=== PATIENT | female | born 1970 | race Caucasian/White ===

== ENCOUNTER → 2016-07-31 | Outpatient (CLI) | payer BC ==
[~2016-07-31] MED LIST: ALLEGRA PO; CALC600T7 PO; CINNAMON PO; FISH100049 PO; HAIRTAB5 PO; IBUP600T26 PO; IRONTAB3 PO; LISIPOW PO; METFORMIN PO; MOTRIN PO; MULTIVITAMIN PO; NIACPOW39 PO; NORCOTAB PO; RANITIDINE PO; SINGULAIR PO; ZIAC PO
[2016-07-31 09:23] LABS: ALBUMIN/GLOBULIN RATIO 1.25 (1.00-1.93); ALKALINE PHOSPHATASE 52 U/L (45-117); ALT/SGPT 49 U/L (12-78); ANION GAP 8 MEQ/L (8-16); AST/SGOT 26 U/L (15-37); BILIRUBIN,TOTAL 0.5 MG/DL (0.2-1.0); BLOOD UREA NITROGEN 12 MG/DL (7-18); CALCIUM LEVEL 9.1 MG/DL (8.5-10.1); CARBON DIOXIDE LEVEL 29 MEQ/L (21-32); CHLORIDE LEVEL 101 MEQ/L (98-107); CREATININE FOR GFR 0.61 MG/DL (0.55-1.02); GLOMERULAR FILTRATION RATE > 60.0 (>58); GLUCOSE, FASTING 180 MG/DL (70-105); POTASSIUM SERUM 4.1 MEQ/L (3.5-5.1); SODIUM LEVEL 138 MEQ/L (136-145); TOTAL PROTEIN 7.2 GM/DL (6.4-8.2)
== END ==
LOC: M LAB 08:11
PROVIDERS: ATTEND Nurse Practitioner Family
DX: I10 Essential (primary) hypertension (principal); E11.9 Type 2 diabetes mellitus without complications

== ENCOUNTER → 2017-01-19 | Outpatient (CLI) | payer BC ==
[2017-01-19 08:45] LABS: ALBUMIN 4.1 GM/DL (3.2-5.2); ALBUMIN/GLOBULIN RATIO 1.32 (1.00-1.93); ALKALINE PHOSPHATASE 53 U/L (45-117); ALT/SGPT 53 U/L (12-78); ANION GAP 9 MEQ/L (8-16); AST/SGOT 26 U/L (7-37); BILIRUBIN,TOTAL 0.6 MG/DL (0.2-1.0); BLOOD UREA NITROGEN 8 MG/DL (7-18); CALCIUM LEVEL 9.4 MG/DL (8.5-10.1); CARBON DIOXIDE LEVEL 27 MEQ/L (21-32); CHLORIDE LEVEL 102 MEQ/L (98-107); CHOLESTEROL LEVEL 185 MG/DL (<200); CREATININE FOR GFR 0.54 MG/DL (0.55-1.02); GLOMERULAR FILTRATION RATE > 60.0 (>58); GLUCOSE, FASTING 179 MG/DL (70-105); MAGNESIUM LEVEL 1.7 MG/DL (1.8-2.4); POTASSIUM SERUM 4.1 MEQ/L (3.5-5.1); SODIUM LEVEL 138 MEQ/L (136-145); TOTAL PROTEIN 7.2 GM/DL (6.4-8.2); TRIGLYCERIDES LEVEL 183 MG/DL (<150)
== END ==
LOC: M LAB 07:46
PROVIDERS: ATTEND Nurse Practitioner Family
DX: I10 Essential (primary) hypertension (principal)

== ENCOUNTER → 2018-01-25 | Outpatient (CLI) | payer BC ==
[2018-01-25 08:26] LABS: ALBUMIN 4.2 GM/DL (3.2-5.2); ALBUMIN/GLOBULIN RATIO 1.45 (1.00-1.93); ALKALINE PHOSPHATASE 62 U/L (45-117); ALT/SGPT 56 U/L (12-78); ANION GAP 6 MEQ/L (8-16); AST/SGOT 32 U/L (7-37); BILIRUBIN,TOTAL 0.6 MG/DL (0.2-1.0); BLOOD UREA NITROGEN 8 MG/DL (7-18); CALCIUM LEVEL 9.5 MG/DL (8.5-10.1); CARBON DIOXIDE LEVEL 31 MEQ/L (21-32); CHLORIDE LEVEL 102 MEQ/L (98-107); CHOLESTEROL LEVEL 184 MG/DL (<200); CHOLESTEROL RISK RATIO 4.842 (<5); CREATININE FOR GFR 0.61 MG/DL (0.55-1.30); GLOMERULAR FILTRATION RATE > 60.0 (>58); GLUCOSE, FASTING 172 MG/DL (70-100); HDL CHOLESTEROL 38 MG/DL (>40); LDL CHOLESTEROL 116 MG/DL (<100); NON-HDL-C 146 MG/DL; POTASSIUM SERUM 4.1 MEQ/L (3.5-5.1); SODIUM LEVEL 139 MEQ/L (136-145); TOTAL PROTEIN 7.1 GM/DL (6.4-8.2); TRIGLYCERIDES LEVEL 152 MG/DL (<150)
[2018-01-25 09:14] LABS: ESTIMATED AVERAGE GLUCOSE 160 MG/DL (60-110); HEMOGLOBIN A1c 7.2 %
[2018-01-25 09:28] LABS: CREATININE, URINE 25.7 MG/DL; MALB URINE SIEMENS < 5.0 MG/L; MAU/CREAT RATIO 19.4 MCG/MG (0.0-30.0)
[2018-01-25 10:17] LABS: TOTAL 25(OH) VITAMIN D 49.1 NG/ML (30.0-100.0)
== END ==
LOC: M LAB 07:34
DX: E11.9 Type 2 diabetes mellitus without complications (principal); K21.9 Gastro-esophageal reflux disease without esophagitis; E78.2 Mixed hyperlipidemia
CPT/HCPCS: 80053

== ENCOUNTER → 2018-07-20 | Outpatient (CLI) | payer BC ==
[2018-07-20 08:43] LABS: HEMOGLOBIN A1c 7.4 %
[2018-07-20 08:50] LABS: ALT/SGPT 41 U/L (12-78); BILIRUBIN,TOTAL 0.7 MG/DL (0.2-1.0); BLOOD UREA NITROGEN 8 MG/DL (7-18); CARBON DIOXIDE LEVEL 28 MEQ/L (21-32); CHLORIDE LEVEL 102 MEQ/L (98-107); CREATININE FOR GFR 0.55 MG/DL (0.55-1.30); GLOMERULAR FILTRATION RATE > 60.0 (>51); GLUCOSE, FASTING 175 MG/DL (70-100); POTASSIUM SERUM 4.1 MEQ/L (3.5-5.1); SODIUM LEVEL 138 MEQ/L (136-145); TOTAL PROTEIN 7.4 GM/DL (6.4-8.2)
== END ==
LOC: M LAB 07:47
PROVIDERS: ATTEND Nurse Practitioner Family
DX: E11.9 Type 2 diabetes mellitus without complications (principal)

== ENCOUNTER → 2019-01-17 | Outpatient (CLI) | payer BC ==
[2019-01-17 09:04] LABS: ALBUMIN 4.2 GM/DL (3.2-5.2); ALT/SGPT 58 U/L (12-78); BILIRUBIN,TOTAL 0.6 MG/DL (0.2-1.0); BLOOD UREA NITROGEN 8 MG/DL (7-18); CALCIUM LEVEL 9.8 MG/DL (8.5-10.1); CARBON DIOXIDE LEVEL 28 MEQ/L (21-32); CHLORIDE LEVEL 103 MEQ/L (98-107); CHOLESTEROL LEVEL 181 MG/DL (<200); CHOLESTEROL RISK RATIO 4.209 (<5); CREATININE FOR GFR 0.61 MG/DL (0.55-1.30); GLOMERULAR FILTRATION RATE > 60.0 (>51); GLUCOSE, FASTING 196 MG/DL (70-100); HDL CHOLESTEROL 43 MG/DL (>40); LDL CHOLESTEROL 106 MG/DL (<100); NON-HDL-C 138 MG/DL; POTASSIUM SERUM 4.1 MEQ/L (3.5-5.1); SODIUM LEVEL 139 MEQ/L (136-145); TOTAL PROTEIN 7.3 GM/DL (6.4-8.2); TRIGLYCERIDES LEVEL 161 MG/DL (<150)
[2019-01-17 10:37] LABS: HEMOGLOBIN A1c 7.4 %
[2019-01-17 15:43] LABS: CREATININE, URINE 55.7 MG/DL; MAU/CREAT RATIO 14.3 MCG/MG (0.0-30.0)
== END ==
LOC: M LAB 07:42
PROVIDERS: ATTEND Nurse Practitioner Family
DX: E11.9 Type 2 diabetes mellitus without complications (principal); E78.2 Mixed hyperlipidemia

== ENCOUNTER → 2019-01-17 | Outpatient (REF) | LOC: M LAB 07:43 | PROVIDERS: ATTEND Nurse Practitioner Adult Health | DX: Z00.00 Encounter for general adult medical examination without abnormal findings (principal) ==

== ENCOUNTER → 2019-07-21 | Outpatient (CLI) | payer BC ==
[2019-07-21 07:59] LABS: ALBUMIN 4.1 GM/DL (3.2-5.2); ALT/SGPT 63 U/L (12-78); BILIRUBIN,TOTAL 0.6 MG/DL (0.2-1.0); BLOOD UREA NITROGEN 8 MG/DL (7-18); CALCIUM LEVEL 9.1 MG/DL (8.5-10.1); CARBON DIOXIDE LEVEL 25 MEQ/L (21-32); CHLORIDE LEVEL 102 MEQ/L (98-107); CHOLESTEROL LEVEL 183 MG/DL (<200); CHOLESTEROL RISK RATIO 4.255 (<5); CREATININE FOR GFR 0.56 MG/DL (0.55-1.30); GLOMERULAR FILTRATION RATE > 60.0 (>51); GLUCOSE, FASTING 216 MG/DL (70-100); HDL CHOLESTEROL 43 MG/DL (>40); LDL CHOLESTEROL 110 MG/DL (<100); MAGNESIUM LEVEL 1.9 MG/DL (1.8-2.4); NON-HDL-C 140 MG/DL; SODIUM LEVEL 136 MEQ/L (136-145); TOTAL PROTEIN 7.5 GM/DL (6.4-8.2); TRIGLYCERIDES LEVEL 148 MG/DL (<150)
[2019-07-21 10:03] LABS: HEMOGLOBIN A1c 8.2 %
== END ==
LOC: M LAB 07:10
PROVIDERS: ATTEND Nurse Practitioner Family
DX: E11.9 Type 2 diabetes mellitus without complications (principal); E78.2 Mixed hyperlipidemia; K21.9 Gastro-esophageal reflux disease without esophagitis

== ENCOUNTER → 2020-02-14 | Outpatient (REF) | payer BC ==
[2020-02-14 17:26] LABS: BLOOD UREA NITROGEN 10 MG/DL (7-18); CALCIUM LEVEL 9.3 MG/DL (8.5-10.1); CARBON DIOXIDE LEVEL 30 MEQ/L (21-32); CHLORIDE LEVEL 105 MEQ/L (98-107); CREATININE FOR GFR 0.64 MG/DL (0.55-1.30); GLOMERULAR FILTRATION RATE > 60.0 (>51); GLUCOSE, FASTING 150 MG/DL (70-100); POTASSIUM SERUM 4.1 MEQ/L (3.5-5.1); SODIUM LEVEL 141 MEQ/L (136-145)
[2020-02-14 17:27] LABS: HEMOGLOBIN A1c 7.2 %
[2020-02-14 17:37] LABS: CREATININE, URINE 13.9 MG/DL; MALB URINE SIEMENS < 5.0 MG/L; MAU/CREAT RATIO 35.9 MCG/MG (0.0-30.0)
== END ==
LOC: M SFHCPLAZ 15:48
PROVIDERS: ATTEND Nurse Practitioner Family
DX: E11.9 Type 2 diabetes mellitus without complications (principal)

== ENCOUNTER 2020-05-24 09:06 | Inpatient (IN) | payer BC ==
[~2020-05-24] VITALS: Ht 162.6 cm; Wt 84.5 kg
[~2020-05-24 09:06] MED LIST changes: +HYDROCHLOROthiazide 6.25MG PER 1/4TAB PO SCH
[2020-05-24] MEDS ORDERED: LISI10TA22 PO (09:22)
[2020-05-24] MEDS ORDERED: METF-838 PO (09:22)
[2020-05-24] MEDS ORDERED: ATOR1TAB19 PO (09:22)
[2020-05-24] MEDS ORDERED: BISO5TAB2 PO (09:22)
[2020-05-24] MEDS ORDERED: MONT10TA10 PO (09:22)
[2020-05-24] MEDS ORDERED: OMEP-218 PO (09:22)
[2020-05-24 10:00] LABS: BASO % 0.1 % (0.0-1.0); HEMATOCRIT 42.9 % (36.0-47.0); HEMOGLOBIN 15.1 g/dl (12.0-15.5); LYMPH # 0.7 10^3/uL (1.5-5.0); LYMPH % 4.6 % (24.0-44.0); MEAN CORPUSCULAR HEMOGLOBIN 30.5 pg (27.0-33.0); MEAN CORPUSCULAR HGB CONC 35.2 g/dl (32.0-36.5); MEAN CORPUSCULAR VOLUME 86.7 fl (80.0-96.0); MONO # 0.6 10^3/uL (0.0-0.8); MONO % 4.2 % (2.0-8.0); NEUTROPHILS # 13.4 10^3/uL (1.5-8.5); NEUTROPHILS % 90.8 % (36.0-66.0); PLATELET COUNT, AUTOMATED 216 10^3/uL (150-450); RED BLOOD COUNT 4.95 10^6/uL (4.00-5.40); WHITE BLOOD COUNT 14.7 10^3/uL (4.0-10.0)
[2020-05-24] MEDS ORDERED: ACETAMINOPHEN 500 MG TAB PO ONE (10:10)
[2020-05-24 10:15] LABS: INR 1.01; PARTIAL THROMBOPLASTIN TIME 28.3 SECONDS (24.2-38.5); PROTHROMBIN TIME 13.5 SECONDS (12.5-14.3)
[2020-05-24] MEDS ORDERED: PIPERACILLIN/TAZOBACTAM SOD 4.5 GM in D5W MINI-BAG PLUS 50 ML IV ONE (10:25)
[2020-05-24] MEDS ORDERED: NS 2,310 ML in IV 1 EA IV ONE (10:25)
[2020-05-24] MEDS ORDERED: VANCOMYCIN HCL 1,000 MG, VIAL MATE ADAPTER 1 EACH in NS 250 ML IV ONE (10:25)
[2020-05-24 10:30] LABS: ALBUMIN 3.7 GM/DL (3.2-5.2); ALT/SGPT 27 U/L (12-78); BILIRUBIN,DIRECT 0.2 MG/DL (0.0-0.2); BILIRUBIN,TOTAL 0.9 MG/DL (0.2-1.0); BLOOD UREA NITROGEN 7 MG/DL (7-18); CALCIUM LEVEL 9.3 MG/DL (8.5-10.1); CARBON DIOXIDE LEVEL 27 MEQ/L (21-32); CHLORIDE LEVEL 100 MEQ/L (98-107); CREATININE FOR GFR 0.69 MG/DL (0.55-1.30); GLOMERULAR FILTRATION RATE > 60.0 (>51); GLUCOSE, FASTING 248 MG/DL (70-100); POTASSIUM SERUM 3.1 MEQ/L (3.5-5.1); SODIUM LEVEL 135 MEQ/L (136-145)
[2020-05-24] MEDS ORDERED: CALC1TAB27 PO (10:38)
[2020-05-24] MEDS ORDERED: VITA-158 PO (10:38)
[2020-05-24] MEDS ORDERED: ALLE180T33 PO (10:38)
[2020-05-24] MEDS ORDERED: NASA1SPR NARES (10:38)
[2020-05-24 10:46] LABS: ERYTHROCYTE SEDIMENTATION RATE 35 mm/hr (0-30)
--- NOTE | 2020-05-24 10:46 | REP ---
INDICATION: R/O DVT. COMPARISON: None. TECHNIQUE: duplex deep vein ultrasound of the right lower extremity. FINDINGS: The right lower extremity deep veins demonstrate normal compression, normal Doppler color flow and normal Doppler waveforms with respiration and augmentation at multiple levels from the popliteal vein to the common femoral vein. There are several normal-sized lymph nodes incidentally identified in the right inguinal area. IMPRESSION: No evidence of right lower extremity deep vein thrombus. Normal size lymph nodes are identified in the right inguinal area. <Electronically signed by Rei Aceves > 05/24/20 1041
--- NOTE | 2020-05-24 10:48 | REP ---
INDICATION: cellulitis. COMPARISON: None. TECHNIQUE: AP and lateral views of the right foot. FINDINGS: AP and latter views of the right foot demonstrate transmetatarsal amputation through the level of the proximal metatarsals 1 through 5. There is mild soft tissue swelling and irregularity the dorsal aspect of the midfoot and at the stump. No soft tissue gas is seen. No acute erosive changes appreciated.. No fracture or subluxation is seen. No opaque foreign body noted. IMPRESSION: Status post proximal transmetatarsal amputation of the right foot. Some soft tissue swelling. No soft tissue gas or acute erosive change seen.. <Electronically signed by Hari Napier > 05/24/20 5622
--- NOTE | 2020-05-24 10:51 | REP ---
INDICATION: fever. COMPARISON: Comparison chest x-ray August 01, 2010. TECHNIQUE: Portable upright AP chest radiograph. FINDINGS: The lungs are well inflated and free of infiltrate. Pleural angles are sharp. Heart size is normal. Pulmonary vasculature is not increased. Patient is rotated somewhat to the left for the current exposure. IMPRESSION: No active disease. <Electronically signed by Hari Napier > 05/24/20 1048
[2020-05-24 11:07] LABS: RSV AMPLIFICATION NEGATIVE (NEGATIVE)
[2020-05-24] MEDS ORDERED: NS 1,000 ML IV SCH (12:35)
[2020-05-24 12:58] LABS: MAGNESIUM LEVEL 1.4 MG/DL (1.8-2.4)
[2020-05-24] MEDS ORDERED: POTASSIUM CHLORIDE 10 MEQ SR TABLET PO ONE (13:00)
[2020-05-24 13:10] VITALS: BP 128/81
[2020-05-24] MEDS ORDERED: VANCOMYCIN HCL 750 MG, VIAL MATE ADAPTER 1 EACH in NS 250 ML IV ONE (13:10)
[2020-05-24] MEDS ORDERED: GLUCAGON INJ 1MG VIAL SC PRN (13:35)
[2020-05-24] MEDS ORDERED: DEXTROSE 50% 50 ML SYRINGE IV PRN (13:35)
[2020-05-24] MEDS ORDERED: GLUCOSE 4GM CHEW TABLET PO PRN (13:35)
[2020-05-24 13:41] LABS: HEMOGLOBIN A1c 7.3 %
[2020-05-24] MEDS: bisoproloL fumarate 5 MG TAB PO SCH (13:48)
[2020-05-24] MEDS: ASCORBIC ACID 500 MG TAB PO SCH (13:49)
--- NOTE | 2020-05-24 14:11 | HPEPDOC ---
[facility] Medical History & Physical Date of Admission May 24, 2020 Date of Service: May 24, 2020 Attending Physician: IAN BURRELL MD History and Physical CHIEF COMPLAINT: Right leg redness/pain, fevers, chills HISTORY OF PRESENT ILLNESS: Patient is a 49-year-old female with a past medical history significant for diabetes mellitus type 2, hypertension and traumatic injury to her right limb, status post metatarsal amputation after being run over by a lawnmower who presented to the [facility]. MRSA department with a complaint of redness and pain of her right lower extremity as well as fevers, chills and nausea. Patient stated that last night she had developed some pain and redness in her right lower extremity. She stated that over the course of the night she has had both chills and fevers. Patient states that she had noticed a skin tag on her right lower extremity stated that the redness had originally started there and has spread up her leg. Patient denies any purulence or drainage from the area. A presentation emerge the patient was vitally stable, although tachycardic. She was febrile with a temperature of 101.3. A vascular ultrasound was obtained which ruled out DVT of the right lower extremity. Additionally, a foot x-ray was obtained which did not demonstrate any osteomyelitis but did demonstrate some soft tissue swelling. Her laboratory examination did demonstrate a leukocytosis and lactic acidosis with elevated CRP. Patient did meet sepsis criteria and was admitted to hospital service for further evaluation management. PAST MEDICAL HISTORY: 1. Diabetes mellitus type 2 2. Hypertension. 3. History of traumatic injury to the right lower extremity, lawnmower accident. 4. GERD 5. Seasonal allergies PAST SURGICAL HISTORY: 1. Right transmetatarsal irritation 2. Skin grafting 3. section 4. Sinus Surgery 5. Partial Hysterectomy SOCIAL HISTORY: Patient is currently and lives at home with her . She admits to occasional alcohol use. States she maybe drinks 1-2 beers/wine a week. She denies any current smoking. She states that she has a history of smoking and quit more than 15 years ago. At that time she was smoking approxima tely 1 pack per day. She is able to complete her ADLs independently. Her primary care provider is Shari Michael FAMILY HISTORY: Patient's father is alive. She is unsure of his medical history. Her mother is alive and diagnosed hypertension. She has 2 brothers, both with hypertension, one with testicular cancer. ALLERGIES: Please see below. REVIEW OF SYSTEMS: CONSTITUTIONAL: Admits to fevers, chills. Denies unintentional weight loss or weight gain. Denies night sweats HEENT: Denies dysphagia. Denies odontophagia. CARDIOVASCULAR: Denies chest pain, palpitations or feelings of the heart racing. RESPIRATORY: Denies shortness of breath. Denies wheezing. Denies cough, denies sputum production. GASTROINTESTINAL: Denies abdominal pain, diarrhea, constipation or vomiting. Admits to some nausea GENITOURINARY: Denies dysuria, increased frequency. Denies urgency. SKIN: Admits to redness of her right lower extremity. Denies any other rashes or lesions. MUSCULOSKELETAL: Denies any back or neck pain.. NEUROLOGICAL: Denies any changes in gait. Denies any changes in speech. Denies any changes in vision. PSYCHIATRIC: Denies depression or anxiety. ENDOCRINE: Denies heat intolerance or cold intolerance. Admits to history diabetes. HEMATOLOGIC/LYMPHATIC: Denies any history of easy bruising or bleeding. Denies any history of DVT or pulmonary embolism. HOME MEDICATIONS: Please see below. PHYSICAL EXAMINATION: VITAL SIGNS: Temperature 101.3, pulse 110, respiratory rate 16, blood pressure 122/70, pulse oximetry 96 % on room air. GENERAL APPEARANCE: Patient is awake, alert, oriented. She does not appear in acute distress. She is lying comfortably in bed. HEENT: Atraumatic normocephalic. Eyes are nonicteric. Trachea is midline. Mucous membranes are pink and moist. CARDIOVASCULAR: Normal S1, S2 tachycardic rate, regular rhythm. No clicks rubs or murmurs. LUNGS: Clear vesicular breath sounds bilaterally. Good respiratory effort. No wheezes, rhonchi without rales ABDOMEN: Soft Nondistended, nontender. Normoactive bowel sounds throughout. EXTREMITIES: Left leg without erythema or edema. Right leg with atrophy compared to the left. Right foot is with metatarsal amputation. There is some erythema that tracks up from the right foot to the anterior and posterior right leg. There is no palpable fluctuance. There is no calf pain. There is no purulence. There is no areas of ulceration. NEUROLOGICAL: No focal neurological deficits. PSYCHIATRIC: Mood and Affect appear appropriate. LABORATORY DATA: See below. IMAGING: INDICATION: R/O DVT. COMPARISON: None. TECHNIQUE: duplex deep vein ultrasound of the right lower extremity. FINDINGS: The right lower extremity deep veins demonstrate normal compression, normal Doppler color flow and normal Doppler waveforms with respiration and augmentation at multiple levels from the popliteal vein to the common femoral vein. There are several normal-sized lymph nodes incidentally identified in the right inguinal area. IMPRESSION: No evidence of right lower extremity deep vein thrombus. Normal size lymph nodes are identified in the right inguinal area. <Electronically signed by Rei Aceves > 05/24/20 1043 INDICATION: cellulitis. COMPARISON: None. TECHNIQUE: AP and lateral views of the right foot. FINDINGS: AP and latter views of the right foot demonstrate transmetatarsal amputation through the level of the proximal metatarsals 1 through 5. There is mild soft tissue swelling and irregularity the dorsal aspect of the midfoot and at the stump. No soft tissue gas is seen. No acute erosive changes appreciated.. No fracture or subluxation is seen. No opaque foreign body noted. IMPRESSION: Status post proximal transmetatarsal amputation of the right foot. Some soft tissue swelling. No soft tissue gas or acute erosive change seen.. <Electronically signed by Hari Napier > 05/24/20 1045 INDICATION: fever. COMPARISON: Comparison chest x-ray August 01, 2010. TECHNIQUE: Portable upright AP chest radiograph. FINDINGS: The lungs are well inflated and free of infiltrate. Pleural angles are sharp. Heart size is normal. Pulmonary vasculature is not increased. Patient is rotated somewhat to the left for the current exposure. IMPRESSION: No active disease. <Electronically signed by Hari Napier > 05/24/20 1047 MICROBIOLOGY: Please see below. ASSESSMENT: Patient is a 49-year-old female with a past medical history significant for hypertension, diabetes mellitus type 2. Right foot transmetatarsal amputation secondary to traumatic injury presented to [facility] emergency department with pain and redness of her right lower extremity the setting of diabetes and admitted for further evaluation and m anagement PLAN: 1. Sepsis secondary to right leg cellulitis -Patient presented with an elevated white count of 14.7, tachycardia with a heart rate of 110, fever of 101.3, and right leg redness and swelling consistent with cellulitis -Patient received both vancomycin and Zosyn in the emergency department. -She was given 3 L normal saline bolus -Blood cultures ordered and pending -Lactic acid of 3.5 -We'll continue patient on vancomycin and Zosyn currently. -Procalcitonin pending 2. Right lower extremity cellulitis -Patient has a right lower extremity cellulitis, which does not appear to be osteomyelitis as the foot x-ray does not demonstrate any bony involvement. X-ray of the foot did demonstrate some soft tissue swelling. -CRP of 26. Will continue to trend CRP -Given her history of diabetes mellitus and in the setting of sepsis, she was continued on vancomycin and Zosyn. -We'll obtain MRSA screen -Patient shows clinical improvement, will de-escalate antibiotics to Rocephin 3. Hypokalemia, hypomagnesemia -Patient denies any history of vomiting. However, she has admitted to some poor oral intake. We will continue to monitor potassium and her magnesium and replete when necessary. -Patient given 40 mEq potassium in the ER. Will give an additional 4 bag runs 4. Diabetes mellitus type 2 -Patient unsure of her previous A1c. Will order A1c today. -Patient only on metformin at home will hold this medication will hospitalized. Will add before meals at bedtime coverage with sliding scale insulin. 5. Lactic acidosis -Likely secondary to sepsis. Patient is receiving IV fluid. Suspect that this will correct with fluid/rehydration 6. Tachycardia -Likely secondary to sepsis. Patient is on telemetry monitoring. Rhythm appears regular. 7. Hypertension -Will continue bisoprolol and hydrochlorothiazide 8. GERD -Continue Prilosec 9. Seasonal allergies -Continue Singulair and Jazzy 10. Hyperlipidemia -Continue Lipitor 11. DVT prophylaxis -Heparin subcutaneous Vital Signs Vital Signs Date Time Temp Pulse Resp B/P (MAP) Pulse Ox O2 Delivery O2 Flow Rate FiO2 05/24/20 12:06 110 16 96 Room Air 05/24/20 11:50 122/70 (87) 05/24/20 09:07 101.3 Laboratory Data Labs 24H Laboratory Tests 2 05/24/20 09:35: Immature Granulocyte % (Auto) 0.3, Neutrophils (%) (Auto) 90.8H, Lymphocytes (%) (Auto) 4.6L, Monocytes (%) (Auto) 4.2, Eosinophils (%) (Auto) 0.0, Basophils (%) (Auto) 0.1, Neutrophils # (Auto) 13.4H, Lymphocytes # (Auto) 0.7L, Monocytes # (Auto) 0.6, Eosinophils # (Auto) 0.0, Basophils # (Auto) 0.0, Nucleated Red Blood Cells % (auto) 0.0, Erythrocyte Sedimentation Rate 35H, Prothrombin Time 13.5, Prothromb Time International Ratio 1.01, Activated Partial Thromboplast Time 28.3, Anion Gap 8, Glomerular Filtration Rate > 60.0, Lactic Acid Level 3.5*H, Calcium Level 9.3, Magnesium Level 1.4L, Total Bilirubin 0.9, Direct Bilirubin 0.2, Aspartate Amino Transf (AST/SGOT) 10, Alanine Aminotransferase (ALT/SGPT) 27, Alkaline Phosphatase 64, C-Reactive Protein, Quantitative 26.00H, Total Protein 8.0, Albumin 3.7, Albumin/Globulin Ratio 0.9L 05/24/20 10:15: Coronavirus (COVID-19)(PCR) NEGATIVE, Influenza Type A (RT-PCR) NEGATIVE, Influenza Type B (RT-PCR) NEGATIVE, Respiratory Syncytial Virus (PCR) NEGATIVE 05/24/20 12:55: CBC/BMP Laboratory Tests 05/24/20 09:35 Microbiology Microbiology 05/24/20 Blood Culture, Received Pending 05/24/20 Blood Culture, Received Pending Home Medications Scheduled Ascorbic Acid (Vitamin C) 500 Mg Tablet, 500 MG PO DAILY Atorvastatin Calcium (Atorvastatin Calcium) 10 Mg Tablet, 10 MG PO QHS Bisoprolol/Hydrochlorothiazide (Bisoprolol-Hctz 5-6.25 mg Tab) 1 Each Tablet, 1 TAB PO DAILY Calcium Carbonate/Vitamin D3 (Calcium 600-Vit D3 800 Tablet) 1 Each Tablet, 1 TAB PO DAILY Fexofenadine HCl (Jazzy Allergy) 180 Mg Tablet, 180 MG PO DAILY Lisinopril (Lisinopril) 10 Mg Tablet, 10 MG PO DAILY Metformin HCl (Metformin HCl ER) 500 Mg Tab.er.24h, 2,000 MG PO DAILY TAKES AT LUNCH Montelukast Sodium (Montelukast Sodium) 10 Mg Tablet, 10 MG PO QHS Omeprazole (Omeprazole) 20 Mg Capsule.dr, 20 MG PO QHS Triamcinolone Acetonide (Nasacort) 10.8 Ml [place], 1 SPRAY NARES DAILY Allergies Coded Allergies: pineapple (Verified Allergy, Severe, throat swelling, 05/24/20) tuberculin,PPD,multi-puncture (Verified Adverse Reaction, Mild, redness at site, 05/24/20) A-FIB/CHADSVASC A-FIB History Current/History of A-Fib/PAF?: No GME ATTESTATION GME ATTESTATION My faculty preceptor for this patient encounter was physically present during the encounter and was fully available. All aspects of the patient interview, examination, medical decision making process, and medical care plan development were reviewed and approved by the faculty preceptor. The faculty preceptor is aware and concurs with the plan as stated in the body of this note and will attest to such by his/her cosignature. ATTENDING NOTE I, Ian Burrell MD, have independently examined this patient and performed my own physical exam, as well as reviewed the documentation and edited where necessary. I have discussed in detail with the resident / student the findings and plan of treatment as documented by the resident / student and edited their note. I agree with their findings and treatment plan and have edited their documentation SEYMOUR LOPEZ DO May 24, 2020 14:11 IAN BURRELL MD May 29, 2020 09:41
[2020-05-24] MEDS: FEXOFENADINE 60 MG TAB PO SCH (15:35)
[2020-05-24] MEDS: MAG SULF 1GM/100ML (MAG RUN) 1 GM in IV 1 EA IV SCH ×3 (15:36→22:52)
[2020-05-24 16:00] VITALS: BP 85/48
[2020-05-24] MEDS: ACETAMINOPHEN TAB 650MG DOSE (2X325MG) PO PRN (16:43)
[2020-05-24] MEDS: PIPERACILLIN/TAZOBACTAM SOD 3.375 GM in D5W MINI-BAG PLUS 50 ML IV SCH ×2 (17:41→23:00)
[2020-05-24] MEDS: HumaLOG INSULIN (NovoLOG) PER UNIT SC SCH ×2 (18:02→21:00)
[2020-05-24] MEDS: VANCOMYCIN HCL 1,000 MG, VIAL MATE ADAPTER 1 EACH in NS 250 ML IV SCH (19:01)
[2020-05-24 20:00] VITALS: BP 100/72
[2020-05-24] MEDS: OMEPRAZOLE 20 MG CAP PO SCH (21:22)
[2020-05-24] MEDS: HEPARIN SOD (PORCINE) 5000UNITS/ML 1ML VIAL/SYRINGE SC SCH (21:23)
[2020-05-24] MEDS: ATORVASTATIN 10 MG TAB PO SCH (21:24)
[2020-05-24] MEDS: MONTELUKAST 10 MG TAB PO SCH (21:24)
[2020-05-25] VITALS: BP 106/56
[2020-05-25] MEDS: MAG SULF 1GM/100ML (MAG RUN) 1 GM in IV 1 EA IV SCH ×3 (00:04→03:07)
[2020-05-25] MEDS ORDERED: MAGNESIUM SULFATE 1GM/100ML D5W BAG (10MG/ML) As Ordered ONE ×2 (01:43→03:06)
[2020-05-25] MEDS: VANCOMYCIN HCL 1,000 MG, VIAL MATE ADAPTER 1 EACH in NS 250 ML IV SCH ×4 (03:05→20:57)
[2020-05-25 04:00] VITALS: BP 115/71
[2020-05-25] MEDS: PIPERACILLIN/TAZOBACTAM SOD 3.375 GM in D5W MINI-BAG PLUS 50 ML IV SCH ×4 (05:58→22:49)
[2020-05-25] MEDS: HEPARIN SOD (PORCINE) 5000UNITS/ML 1ML VIAL/SYRINGE SC SCH ×3 (05:58→21:10)
[2020-05-25 06:45] LABS: HEMATOCRIT 36.2 % (36.0-47.0); MEAN CORPUSCULAR HEMOGLOBIN 30.5 pg (27.0-33.0); MEAN CORPUSCULAR HGB CONC 35.1 g/dl (32.0-36.5); MEAN CORPUSCULAR VOLUME 86.8 fl (80.0-96.0); PLATELET COUNT, AUTOMATED 177 10^3/uL (150-450); RED BLOOD COUNT 4.17 10^6/uL (4.00-5.40); WHITE BLOOD COUNT 10.5 10^3/uL (4.0-10.0)
[2020-05-25 07:17] LABS: BLOOD UREA NITROGEN 5 MG/DL (7-18); CALCIUM LEVEL 7.7 MG/DL (8.5-10.1); CARBON DIOXIDE LEVEL 28 MEQ/L (21-32); CHLORIDE LEVEL 104 MEQ/L (98-107); CREATININE FOR GFR 0.48 MG/DL (0.55-1.30); GLOMERULAR FILTRATION RATE > 60.0 (>51); GLUCOSE, FASTING 230 MG/DL (70-100); POTASSIUM SERUM 3.3 MEQ/L (3.5-5.1); SODIUM LEVEL 138 MEQ/L (136-145)
[2020-05-25 07:23] LABS: HEMOGLOBIN 12.7 g/dl (12.0-15.5)
[2020-05-25 07:48] VITALS: BP 117/65
[2020-05-25] MEDS: FEXOFENADINE 60 MG TAB PO SCH (08:33)
[2020-05-25] MEDS: POTASSIUM CHLORIDE 10 MEQ SR TABLET PO SCH ×2 (08:33→20:51)
[2020-05-25] MEDS: HumaLOG INSULIN (NovoLOG) PER UNIT SC SCH ×4 (08:33→21:00)
[2020-05-25] MEDS: ASCORBIC ACID 500 MG TAB PO SCH (08:33)
[2020-05-25] MEDS: bisoproloL fumarate 5 MG TAB PO SCH (08:34)
[2020-05-25] MEDS: ACETAMINOPHEN TAB 650MG DOSE (2X325MG) PO PRN ×2 (08:51→20:51)
--- NOTE | 2020-05-25 08:54 | IPN ---
PROGRESS NOTE DATE: 05/25/2020 SUBJECTIVE: Gabby is admitted with a diabetic lower extremity infection. She feels weak, tired, but improved from yesterday. She is on Vancomycin and Zosyn. No diarrhea. Potassium is a little low today. Blood sugars have been under moderate control. The outpatient diabetes is under fairly good control with hemoglobin A1C of 7.3%. Primary care provider is Karime Michael NP. PHYSICAL EXAMINATION: Afebrile, vital signs stable. Systolic pressure is around 100 to 115. HEENT unremarkable. Lungs clear. Heart regular rhythm. Abdomen soft, nontender. Trace peripheral edema. Right lower extremity is status post transmetatarsal amputation. There is erythema from the stump of the foot to the lower leg. It looks, per patient's description, less intensely red than yesterday and has regressed a bit from to margin. LABORATORY DATA: Sodium 138, potassium 3.3, BUN 6, creatinine 0.5, glucose 230. White count 10.5, hemoglobin 12.7, platelets 177,000. COVID negative. IMPRESSION AND PLAN: 1. Cellulitis right lower extremity: Continue current antibiotic therapy. Daily labs have been ordered. Clinically responding. 2. Diabetes: Continue sliding scale insulin coverage. 3. Hypotension: I am stopping her Hydrochlorothiazide (patient also receiving I.V. fluids, no reason for her to also receive a diuretic) as well as Lisinopril. Systolic pressure is 100 to 110. 4. Hypokalemia: potassium has been given. 5. Hyperlipidemia: Continue Atorvastatin 10 mg daily.
[2020-05-25 09:17] LABS: MAGNESIUM LEVEL 2.6 MG/DL (1.8-2.4)
[2020-05-25] MEDS ORDERED: SLF 3 ML SYR IV PRN (10:50)
[2020-05-25 11:46] VITALS: BP 105/63
[2020-05-25] MEDS: SLF 3 ML SYR IV SCH ×2 (14:09→22:49)
[2020-05-25 16:06] VITALS: BP 125/71
[2020-05-25 20:00] VITALS: BP 122/67
[2020-05-25] MEDS: OMEPRAZOLE 20 MG CAP PO SCH (20:50)
[2020-05-25] MEDS: ATORVASTATIN 10 MG TAB PO SCH (20:51)
[2020-05-25] MEDS: MONTELUKAST 10 MG TAB PO SCH (20:51)
[2020-05-25] MEDS: KETOROLAC 30 MG/ML 1ML VIAL IV PRN (21:20)
[2020-05-26] VITALS: BP 123/59
[2020-05-26 04:00] VITALS: BP 133/79
[2020-05-26] MEDS: PIPERACILLIN/TAZOBACTAM SOD 3.375 GM in D5W MINI-BAG PLUS 50 ML IV SCH ×4 (04:31→21:26)
[2020-05-26] MEDS: VANCOMYCIN HCL 1,000 MG, VIAL MATE ADAPTER 1 EACH in NS 250 ML IV SCH ×3 (05:23→21:25)
[2020-05-26] MEDS: HEPARIN SOD (PORCINE) 5000UNITS/ML 1ML VIAL/SYRINGE SC SCH ×3 (05:25→21:25)
[2020-05-26] MEDS: SLF 3 ML SYR IV SCH ×3 (05:26→21:28)
[2020-05-26 05:35] LABS: HEMATOCRIT 33.5 % (36.0-47.0); HEMOGLOBIN 11.4 g/dl (12.0-15.5); MEAN CORPUSCULAR HEMOGLOBIN 30.2 pg (27.0-33.0); MEAN CORPUSCULAR VOLUME 88.9 fl (80.0-96.0); PLATELET COUNT, AUTOMATED 159 10^3/uL (150-450); RED BLOOD COUNT 3.77 10^6/uL (4.00-5.40); WHITE BLOOD COUNT 6.9 10^3/uL (4.0-10.0)
[2020-05-26 05:54] LABS: BLOOD UREA NITROGEN 8 MG/DL (7-18); CALCIUM LEVEL 7.6 MG/DL (8.5-10.1); CARBON DIOXIDE LEVEL 27 MEQ/L (21-32); CHLORIDE LEVEL 107 MEQ/L (98-107); CREATININE FOR GFR 0.57 MG/DL (0.55-1.30); GLOMERULAR FILTRATION RATE > 60.0 (>51); GLUCOSE, FASTING 225 MG/DL (70-100); POTASSIUM SERUM 3.8 MEQ/L (3.5-5.1); SODIUM LEVEL 141 MEQ/L (136-145)
[2020-05-26 07:17] VITALS: BP 124/76
[2020-05-26] MEDS: KETOROLAC 30 MG/ML 1ML VIAL IV PRN ×3 (07:34→22:59)
[2020-05-26] MEDS: ACETAMINOPHEN TAB 650MG DOSE (2X325MG) PO PRN ×3 (07:35→22:59)
[2020-05-26] MEDS: HumaLOG INSULIN (NovoLOG) PER UNIT SC SCH ×4 (09:24→21:00)
[2020-05-26] MEDS: FEXOFENADINE 60 MG TAB PO SCH (09:24)
[2020-05-26] MEDS: bisoproloL fumarate 5 MG TAB PO SCH (09:25)
[2020-05-26] MEDS: POTASSIUM CHLORIDE 10 MEQ SR TABLET PO SCH ×2 (09:25→21:26)
[2020-05-26] MEDS: ASCORBIC ACID 500 MG TAB PO SCH (09:25)
[2020-05-26 12:01] VITALS: BP 115/69
--- NOTE | 2020-05-26 13:13 | IPN ---
PROGRESS NOTE DATE: 05/26/2020 SUBJECTIVE: Gabby is having a lot of pain around the area of hemorrhagic blister that has developed on her right lower leg medially. She was admitted with cellulitis. There was no recent trauma. No fever. No chills. Clinically, she thinks she is responding to antibiotic. There has been regression of her erythema. PHYSICAL EXAMINATION: Afebrile. Vital signs stable. LUNGS: Clear. HEART: Regular rhythm. ABDOMEN: Soft, nontender. EXTREMITIES: Status post transmetatarsal amputation right foot. There is a hemorrhagic blister about 4 cm x 4.5 cm medial aspect. Quite tender to palpate. Right lower extremity is erythematous, but there has been regression from inked margin. LABORATORY DATA: White count is down to 6.9, hemoglobin is 11.4. Electrolytes unremarkable. IMPRESSION: 1. Cellulitis right lower leg. Continue ceftaroline. 2. Hemorrhagic blister. Will consultation wound service tomorrow. 3. Hypotension. Systolic pressure has rebounded. We stopped her hydrochlorothiazide (was also receiving intravenous (IV) fluids) and lisinopril yesterday. 4. Hyperlipidemia. Continue atorvastatin. 5. Hypokalemia. Potassium is improved. She is getting 40 mEq twice a day. I will probably cut that back tomorrow. 6. Diabetes. Insulin requirements have been relatively low, about 16 units a day.
[2020-05-26 15:57] VITALS: BP 114/75
[2020-05-26 20:00] VITALS: BP 109/66
[2020-05-26] MEDS: ATORVASTATIN 10 MG TAB PO SCH (21:26)
[2020-05-26] MEDS: MONTELUKAST 10 MG TAB PO SCH (21:26)
[2020-05-26] MEDS: OMEPRAZOLE 20 MG CAP PO SCH (21:26)
[2020-05-27] VITALS: BP 144/88
[2020-05-27 04:00] VITALS: BP 135/66
[2020-05-27 05:47] LABS: HEMATOCRIT 33.9 % (36.0-47.0); HEMOGLOBIN 11.5 g/dl (12.0-15.5); MEAN CORPUSCULAR HEMOGLOBIN 30.3 pg (27.0-33.0); MEAN CORPUSCULAR HGB CONC 33.9 g/dl (32.0-36.5); MEAN CORPUSCULAR VOLUME 89.2 fl (80.0-96.0); PLATELET COUNT, AUTOMATED 186 10^3/uL (150-450); WHITE BLOOD COUNT 7.8 10^3/uL (4.0-10.0)
[2020-05-27] MEDS: VANCOMYCIN HCL 1,000 MG, VIAL MATE ADAPTER 1 EACH in NS 250 ML IV SCH ×3 (05:58→21:15)
[2020-05-27] MEDS: PIPERACILLIN/TAZOBACTAM SOD 3.375 GM in D5W MINI-BAG PLUS 50 ML IV SCH ×4 (05:59→23:00)
[2020-05-27] MEDS: SLF 3 ML SYR IV SCH ×3 (05:59→21:17)
[2020-05-27] MEDS: HEPARIN SOD (PORCINE) 5000UNITS/ML 1ML VIAL/SYRINGE SC SCH ×3 (05:59→21:16)
[2020-05-27 06:08] LABS: BLOOD UREA NITROGEN 10 MG/DL (7-18); CALCIUM LEVEL 8.7 MG/DL (8.5-10.1); CARBON DIOXIDE LEVEL 26 MEQ/L (21-32); CHLORIDE LEVEL 108 MEQ/L (98-107); CREATININE FOR GFR 0.56 MG/DL (0.55-1.30); GLOMERULAR FILTRATION RATE > 60.0 (>51); GLUCOSE, FASTING 203 MG/DL (70-100); POTASSIUM SERUM 4.1 MEQ/L (3.5-5.1); SODIUM LEVEL 140 MEQ/L (136-145)
[2020-05-27 07:17] VITALS: BP 135/66
[2020-05-27] MEDS: bisoproloL fumarate 5 MG TAB PO SCH (08:05)
[2020-05-27] MEDS: KETOROLAC 30 MG/ML 1ML VIAL IV PRN ×2 (08:05→21:17)
[2020-05-27] MEDS: ACETAMINOPHEN TAB 650MG DOSE (2X325MG) PO PRN ×2 (08:06→21:16)
[2020-05-27] MEDS: ASCORBIC ACID 500 MG TAB PO SCH (08:06)
[2020-05-27] MEDS: FEXOFENADINE 60 MG TAB PO SCH (08:06)
[2020-05-27] MEDS: POTASSIUM CHLORIDE 10 MEQ SR TABLET PO SCH ×2 (08:06→21:17)
[2020-05-27] MEDS: HumaLOG INSULIN (NovoLOG) PER UNIT SC SCH ×4 (08:07→21:00)
--- NOTE | 2020-05-27 09:56 | IPN ---
PROGRESS NOTE DATE: 05/27/2020 SUBJECTIVE: Gabby's cellulitis is stable and not much improvement from yesterday. Getting an advanced wound care consult for the hemorrhagic blisters developing in her right lower extremity. I am concerned about circulation to her leg. I am going to get an arterial study while we are waiting for her wound care consult. I mistakenly said yesterday that she is on ceftaroline; her regimen is actually Zosyn and vancomycin, which we are continuing. She denies any fever. There is some pain in her foot and lower leg. OBJECTIVE: VITAL SIGNS: Blood pressure 130/66, afebrile. HEENT: Unremarkable. LUNGS: Clear. HEART: Regular rhythm without murmur. ABDOMEN: Soft and nontender. EXTREMITIES: She has hemorrhagic blisters distal to the medial and lateral malleolus. There is a bit of crusting at the incision site from her transmetatarsal amputation. There is some regression of erythema from the inked margin from admission, but it is no different than yesterday. IMPRESSION/PLAN: 1. Cellulitis right lower extremity. Continue vancomycin and Zosyn. 2. ? peripheral arterial disease. Noninvasive arterial study ordered. 3. Hemorrhagic blisters. Advanced wound care consult pending. 4. Hypotension. This has resolved and blood pressure is back to baseline, which is a good sign. She is still of her thiazide diuretic. 5. Hyperlipidemia. Continue atorvastatin 10 mg daily. 6. Diabetes. She is on sliding scale insulin with coverage. She is on metformin as an outpatient. Renal function is stable and I am going to be restarting this.
[2020-05-27 12:00] VITALS: BP 157/83
--- NOTE | 2020-05-27 12:17 | REP ---
INDICATION: PAD. Cellulitis. COMPARISON: None. TECHNIQUE: Duplex ultrasound of the right lower extremity arteries. FINDINGS: Brachial peak systole: 120 mmHg Dorsalis pedis peak systole: 120 mmHg ENGINE HOSTLER peak systole: 100 mmHg JUS: NA BILINGUAL NANNY: 125 velocity, monophasic phasicity Profunda: 87 velocity, monophasic phasicity SFA prox: 127 velocity, monophasic phasicity SFA mid: 163 velocity, monophasic phasicity SFA dist: 118 velocity, monophasic phasicity Pop: Sick 141 velocity, monophasic phasicity EDGAR prox: 135 velocity, monophasic phasicity Tib/P tr: 124 velocity, monophasic phasicity ENGINE HOSTLER pr: 20 velocity, monophasic phasicity ENGINE HOSTLER dst: 86 velocity, monophasic phasicity EDGAR dst: 76 velocity, monophasic phasicity There is minimal atheromatous plaque throughout the right lower extremity. There is no significant luminal narrowing or stenosis. All velocities are elevated in all waveforms are monophasic. This may be secondary to lower extremity hyperemia from the cellulitis. IMPRESSION: There is no significant luminal narrowing or stenosis. The elevated flow velocities and monophasic waveforms may be secondary to hyperemia from the cellulitis. <Electronically signed by Rei Aceves > 05/27/20 8613
[2020-05-27] MEDS: metFORMIN XR 500MG TAB *GLUCOPHAGE XR PO SCH (12:59)
[2020-05-27 16:00] VITALS: BP 164/72
[2020-05-27 20:00] VITALS: BP 138/77
[2020-05-27] MEDS: MONTELUKAST 10 MG TAB PO SCH (21:16)
[2020-05-27] MEDS: ATORVASTATIN 10 MG TAB PO SCH (21:16)
[2020-05-27] MEDS: OMEPRAZOLE 20 MG CAP PO SCH (21:16)
[2020-05-28] VITALS: BP 126/75
[2020-05-28 04:00] VITALS: BP 164/81
[2020-05-28 04:25] LABS: HEMATOCRIT 34.7 % (36.0-47.0); HEMOGLOBIN 11.6 g/dl (12.0-15.5); MEAN CORPUSCULAR HEMOGLOBIN 30.4 pg (27.0-33.0); MEAN CORPUSCULAR HGB CONC 33.4 g/dl (32.0-36.5); MEAN CORPUSCULAR VOLUME 91.1 fl (80.0-96.0); PLATELET COUNT, AUTOMATED 224 10^3/uL (150-450); RED BLOOD COUNT 3.81 10^6/uL (4.00-5.40); WHITE BLOOD COUNT 7.2 10^3/uL (4.0-10.0)
[2020-05-28] MEDS: VANCOMYCIN HCL 1,000 MG, VIAL MATE ADAPTER 1 EACH in NS 250 ML IV SCH (04:27)
[2020-05-28 04:48] LABS: BLOOD UREA NITROGEN 7 MG/DL (7-18); CALCIUM LEVEL 8.7 MG/DL (8.5-10.1); CARBON DIOXIDE LEVEL 30 MEQ/L (21-32); CHLORIDE LEVEL 107 MEQ/L (98-107); CREATININE FOR GFR 0.62 MG/DL (0.55-1.30); GLOMERULAR FILTRATION RATE > 60.0 (>51); GLUCOSE, FASTING 183 MG/DL (70-100); POTASSIUM SERUM 4.5 MEQ/L (3.5-5.1); SODIUM LEVEL 141 MEQ/L (136-145)
[2020-05-28] MEDS: PIPERACILLIN/TAZOBACTAM SOD 3.375 GM in D5W MINI-BAG PLUS 50 ML IV SCH ×4 (05:00→23:00)
[2020-05-28] MEDS: HEPARIN SOD (PORCINE) 5000UNITS/ML 1ML VIAL/SYRINGE SC SCH ×3 (06:38→21:20)
[2020-05-28] MEDS: SLF 3 ML SYR IV SCH ×3 (06:38→21:20)
[2020-05-28 08:00] VITALS: BP 156/81
[2020-05-28] MEDS: bisoproloL fumarate 5 MG TAB PO SCH (08:15)
[2020-05-28] MEDS: FEXOFENADINE 60 MG TAB PO SCH (08:15)
[2020-05-28] MEDS: POTASSIUM CHLORIDE 10 MEQ SR TABLET PO SCH ×2 (08:16→21:19)
[2020-05-28] MEDS: ASCORBIC ACID 500 MG TAB PO SCH (08:16)
[2020-05-28] MEDS: HumaLOG INSULIN (NovoLOG) PER UNIT SC SCH ×4 (08:18→21:00)
[2020-05-28] MEDS: metFORMIN XR 500MG TAB *GLUCOPHAGE XR PO SCH (11:32)
[2020-05-28 12:00] VITALS: BP 132/78
--- NOTE | 2020-05-28 12:31 | IPNPDOC ---
Text Note Date of Service The patient was seen on 05/28/20. NOTE Subjective: Patient is a 49-year-old female with a PMHx of HTN, DM2, Hx of Traumatic injury to RLE 2/2 lawnmower, GERD who presented to the emergency room with complaints of her right leg feeling red, warm and painful. Patient also noted associated fevers and chills. Patient was admitted to the hospital service for cellulitis of her right lower extremity advanced wound care, Dr. Masters was called on consultation. Patient was seen and examined at the bedside. Currently she reports that the area of redness has improved compared to the demarcation lines. Reports some tightness and warmth, but still persists. Denies any nausea, vomiting, chest pain, shortness breath, palpitations. Blood blisters at the base of her right lower extremity still persist Objective: Vitals (See below) General: Lying in bed, appears comfortable, AAOx3 HEENT: NC, AT CVS: +S1S2 Lungs: Fair air entry b/l, no visual wheezing, rhonchi or rales Abdomen: Soft, ND, NT Extremities: Right foot with traumatic injury noted from past; improved area of redness from area of demarkation Assessment and plan: Sepsis - likely 2/2 right leg cellulitis - Currently patient reports some improvement of her right lower extremity redness, warmth and tenderness - s/p Leukocytosis; s/p Lactic acidosis - Blood cultures 05/24: No growth at 72 hours - c/w Zosyn; will adjust to oral antibiotics within 24 hours - will discontinue Vancomycin - Awaiting wound care instructions from Dr. Masters s/p Lactic acidosis s/p; Hypokalemia / Hypomagnesemia DM2 with Hyperglycemia - c/w ISS and Levemir DLP - c/w Atorvastatin HTN - BP well controlled - c/w Bisoprolol and HCTZ Seasonal allergies - c/w Singulair and Jazzy GERD - c/w Omeprazole DVT prophylaxis - c/w Heparin Disposition: - Awaiting wound care instructions from Shraddha Wyman, I+O Shraddha VALENTINE, I+O Laboratory Tests 05/28/20 03:44 Vital Signs Date Time Temp Pulse Resp B/P (MAP) Pulse Ox O2 Delivery O2 Flow Rate FiO2 05/28/20 12:00 98.7 79 28 132/78 (96) 95 Room Air I&O- Last 24 Hours up to 6 AM 05/28/20 06:00 Intake Total 1600 ml Output Total 3250 ml Balance -1650 ml UMESH HENDERSON MD May 28, 2020 12:31
[2020-05-28 16:00] VITALS: BP 163/91
[2020-05-28] MEDS: ACETAMINOPHEN TAB 650MG DOSE (2X325MG) PO PRN ×2 (17:44→21:19)
--- NOTE | 2020-05-28 19:02 | CR ---
ADVANCED WOUND CARE CONSULTATION DATE: 05/28/2020 Telemedicine consultation CONSULTATION REQUESTED BY: Dr. Marlon Chauhan. REASON FOR CONSULTATION: Wound care recommendations for right lower extremity wounds. 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 A previous transmetatarsal amputation of her right foot has been performed. On admission, the patient had a low grade temperature of 100.2 and had a white count of 14.7. This has now returned to normal with a white count of 7.2 and she has remained afebrile. The patient wears Crocs, a type of rubber shoe which has produced a significant deep tissue injury, almost circumferential, involving the medial aspect of her right ankle and extends laterally. This wound presents as a large intact blood-filled blister and measures 4.0 cm x 8.0 cm and is consistent with a deep tissue injury. Additionally, the patient has significant callous formation involving the distal aspect of her transmetatarsal amputation, which was performed many years ago. Callous formation is an indication local trauma to an unprotected neuropathic foot. These 2 wound areas combined with right lower extremity pretibial cellulitis pose a significant serious problem. Treatment for this: Wound debridement followed by Hydrofera Blue foam, transfer and an extra absorb outer dressing secured with a Kerlix or Cling. The cellulitis involving the right lower extremity appears to have improved and the patient is on Zosyn and vancomycin, which and be adjusted per her medical physician. I have spoken directly to Dr. Adarsh Snider of podiatry, who will perform local bedside wound debridement. Post-debridement dressing changes should include Hydrofera Blue foam with an outer absorptive dressing to be applied to the foot and ankle and also the pretibial area. Depending upon the amount of drainage the pretibial area can also be treated with a standard foam dressing These should be changed daily Additionally, a heel float boot for protection and offloading is indicated along with elevation of the foot of the bed to address gravitational dependent edema. If an arterial ultrasound has not been performed this should be ordered to evaluate The arterial status of her right lower extremity. WOLF
[2020-05-28 20:00] VITALS: BP 118/58
[2020-05-28] MEDS: ATORVASTATIN 10 MG TAB PO SCH (21:19)
[2020-05-28] MEDS: MONTELUKAST 10 MG TAB PO SCH (21:20)
[2020-05-28] MEDS: KETOROLAC 30 MG/ML 1ML VIAL IV PRN (21:20)
[2020-05-28] MEDS: OMEPRAZOLE 20 MG CAP PO SCH (21:20)
[2020-05-29] VITALS: BP 111/60
[2020-05-29 04:00] VITALS: BP 132/77
[2020-05-29 05:40] LABS: HEMATOCRIT 33.6 % (36.0-47.0); HEMOGLOBIN 11.2 g/dl (12.0-15.5); MEAN CORPUSCULAR HEMOGLOBIN 30.2 pg (27.0-33.0); MEAN CORPUSCULAR HGB CONC 33.3 g/dl (32.0-36.5); MEAN CORPUSCULAR VOLUME 90.6 fl (80.0-96.0); PLATELET COUNT, AUTOMATED 287 10^3/uL (150-450); RED BLOOD COUNT 3.71 10^6/uL (4.00-5.40); WHITE BLOOD COUNT 7.5 10^3/uL (4.0-10.0)
[2020-05-29] MEDS: SLF 3 ML SYR IV SCH ×2 (05:50→14:40)
[2020-05-29] MEDS: HEPARIN SOD (PORCINE) 5000UNITS/ML 1ML VIAL/SYRINGE SC SCH ×2 (05:50→14:42)
[2020-05-29] MEDS: PIPERACILLIN/TAZOBACTAM SOD 3.375 GM in D5W MINI-BAG PLUS 50 ML IV SCH (05:50)
[2020-05-29 06:02] LABS: BLOOD UREA NITROGEN 10 MG/DL (7-18); CALCIUM LEVEL 8.8 MG/DL (8.5-10.1); CARBON DIOXIDE LEVEL 26 MEQ/L (21-32); CHLORIDE LEVEL 107 MEQ/L (98-107); CREATININE FOR GFR 0.66 MG/DL (0.55-1.30); GLOMERULAR FILTRATION RATE > 60.0 (>51); GLUCOSE, FASTING 167 MG/DL (70-100); POTASSIUM SERUM 4.3 MEQ/L (3.5-5.1); SODIUM LEVEL 140 MEQ/L (136-145)
[2020-05-29 08:00] VITALS: BP 149/81
[2020-05-29] MEDS: POTASSIUM CHLORIDE 10 MEQ SR TABLET PO SCH (08:38)
[2020-05-29] MEDS: HumaLOG INSULIN (NovoLOG) PER UNIT SC SCH ×2 (08:38→12:02)
[2020-05-29] MEDS: ASCORBIC ACID 500 MG TAB PO SCH (08:38)
[2020-05-29 08:39] VITALS: BP 149/81
[2020-05-29] MEDS: FEXOFENADINE 60 MG TAB PO SCH (08:39)
[2020-05-29] MEDS: bisoproloL fumarate 5 MG TAB PO SCH (08:39)
[2020-05-29] MEDS ORDERED: AUGMENTIN 875 MG TAB PO SCH (09:00)
[2020-05-29] MEDS: ACETAMINOPHEN TAB 650MG DOSE (2X325MG) PO PRN (11:48)
[2020-05-29 12:00] VITALS: BP 148/78
[2020-05-29] MEDS ORDERED: AMOX875T2 PO (13:19)
--- NOTE | 2020-05-29 13:45 | DS.PDOC ---
Discharge Summary General Date of Admission May 24, 2020 at 11:38 Date of Discharge 05/29/2020 Discharge Summary PROCEDURES PERFORMED DURING STAY: Bedside debridement of RLE 05/[address] Snider ADMITTING DIAGNOSES / DISCHARGE DIAGNOSES: Sepsis - likely 2/2 right leg cellulitis s/p Lactic acidosis s/p Hypokalemia / Hypomagnesemia DM2 with Hyperglycemia DLP HTN Seasonal allergies GERD DVT prophylaxis COMPLICATIONS/CHIEF COMPLAINT: Diabetic Foot Infection. HISTORY OF PRESENT ILLNESS: Patient is a 49-year-old female with a PMHx of HTN, DM2, Hx of Traumatic injury to RLE 2/2 lawnmower, GERD who presented to the emergency room with complaints of her right leg feeling red, warm and painful. Patient also noted associated fevers and chills. Patient was admitted to the hospital service for cellulitis of her right lower extremity advanced wound care, Dr. Masters was called on consultation. HOSPITAL COURSE: Sepsis - likely 2/2 right leg cellulitis - Progression from areas of demarcation of erythema, warmth and tenderness - s/p Leukocytosis; s/p Lactic acidosis - Blood cultures 05/24: No growth at 72 hours - Will start Augmentin for completion of antibiotic course; Will DC Zosyn; s/p Vancomycin - Dr. Masters has provided wound care instructions - Dr. Snider was performed at bedside debridements - Will have outpatient follow-up with primary care provider, podiatry and [facility] next 7 days s/p Lactic acidosis s/p Hypokalemia / Hypomagnesemia DM2 with Hyperglycemia - c/w ISS and Levemir DLP - c/w Atorvastatin HTN - BP well controlled - c/w Bisoprolol and HCTZ Seasonal allergies - c/w Singulair and Jazzy GERD - c/w Omeprazole DVT prophylaxis - c/w Heparin DISCHARGE MEDICATIONS: Please see below. ALLERGIES: Please see below. PHYSICAL EXAMINATION ON DISCHARGE: Vitals (See below) General: Sitting up in bed, appears to be comfortable without any acute distress, AAOx3 HEENT: NC, AT CVS: +S1S2 Lungs: Fair air entry b/l, auscultation is free of rhonchi, crackles or wheezing Abdomen: Soft, nondistended and nontender Extremities: Right foot with partial amputation noted; will be debrided by Dr. Snider today; no edema Skin: Right leg area of erythema, warmth and tenderness has progressed from demarcation lines LABORATORY DATA: Please see below. IMAGING: Duplex US RLE 05/24: No evidence of right lower extremity deep vein thrombus. Normal size lymph nodes are identified in the right inguinal area. XR Foot 05/24: Status post proximal transmetatarsal amputation of the right foot. Some soft tissue swelling. No soft tissue gas or acute erosive change seen.. CXR 05/24: No active disease. Arterial US RLE 05/24: There is no significant luminal narrowing or stenosis. The elevated flow velocities and monophasic waveforms may be secondary to hyperemia from the cellulitis. ACTIVITY: [As tolerated]. DISCHARGE PLAN: Please follow-up with primary care provider within the next 7 days Follow-up with Dr. Snider and Dr. Masters within the next 7 days Remain compliant with treatment plan and medications Return to the ER experience any problems DISPOSITION: Home with services DISCHARGE CONDITION: [Stable]. TIME SPENT ON DISCHARGE: 35 minutes. Vital Signs/I&Os Vital Signs Date Time Temp Pulse Resp B/P (MAP) Pulse Ox O2 Delivery O2 Flow Rate FiO2 05/29/20 12:00 97.5 72 20 148/78 (101) 98 Room Air I&O- Last 24 Hours up to 6 AM 05/29/20 06:00 Intake Total 1440 ml Output Total 3000 ml Balance -1560 ml Laboratory Data Labs 24H Laboratory Tests 2 05/28/20 17:28: Bedside Glucose (Misc Panel) 146H 05/28/20 21:08: Bedside Glucose (Misc Panel) 184H 05/29/20 04:56: Nucleated Red Blood Cells % (auto) 0.0, Anion Gap 7L, Glomerular Filtration Rate > 60.0, Calcium Level 8.8 05/29/20 11:22: Bedside Glucose (Misc Panel) 202H CBC/BMP Laboratory Tests 05/29/20 04:56 FSBS Laboratory Tests Test 05/28/20 17:28 05/28/20 21:08 05/29/20 11:22 Range/Units Bedside Glucose (Misc Panel) 146 184 202 70-105 MG/DL Microbiology Microbiology 05/24/20 Blood Culture - Final, Complete NO GROWTH AFTER 5 DAYS 05/24/20 Blood Culture - Final, Complete NO GROWTH AFTER 5 DAYS Discharge Medications Scheduled Amoxicillin/Potassium Clav (Amox-Clav 875-125 mg Tablet) 1 Each Tablet, 875 MG PO BID Ascorbic Acid (Vitamin C) 500 Mg Tablet, 500 MG PO DAILY, (Reported) Atorvastatin Calcium (Atorvastatin Calcium) 10 Mg Tablet, 10 MG PO QHS, (Re ported) Bisoprolol/Hydrochlorothiazide (Bisoprolol-Hctz 5-6.25 mg Tab) 1 Each Tablet, 1 TAB PO DAILY, (Reported) Calcium Carbonate/Vitamin D3 (Calcium 600-Vit D3 800 Tablet) 1 Each Tablet, 1 TAB PO DAILY, (Reported) Fexofenadine HCl (Jazzy Allergy) 180 Mg Tablet, 180 MG PO DAILY, (Reported) Lisinopril (Lisinopril) 10 Mg Tablet, 10 MG PO DAILY, (Reported) Metformin HCl (Metformin HCl ER) 500 Mg Tab.er.24h, 2,000 MG PO DAILY, (Reported) TAKES AT LUNCH Montelukast Sodium (Montelukast Sodium) 10 Mg Tablet, 10 MG PO QHS, (Reported) Omeprazole (Omeprazole) 20 Mg Capsule.dr, 20 MG PO QHS, (Reported) Triamcinolone Acetonide (Nasacort) 10.8 Ml [place], 1 SPRAY NARES DAILY, (Reported) Allergies Coded Allergies: pineapple (Verified Allergy, Severe, throat swelling, 05/24/20) tuberculin,PPD,multi-puncture (Verified Adverse Reaction, Mild, redness at site, 05/24/20) UMESH HENDERSON MD May 29, 2020 13:45
--- NOTE | 2020-05-29 14:54 | CR ---
CONSULTATION DATE: 05/29/2020 REASON FOR CONSULTATION: Right foot wound and cellulitis. HISTORY OF PRESENT ILLNESS: Gabby Waddell is a pleasant 49-year-old female who was admitted May 24, [address] [facility] with redness and swelling to her right foot. She had preceded with infection a few days prior with fevers and chills. She has history of traumatic amputation of her right foot from a lawnmower injury when she was 1 years old. She believes this most recent infection has stemmed from a small wound that is at the tip of the amputated part of the foot. She is being treated with intravenous (IV) antibiotics. Telemedicine consultation was placed with Dr. Masters and I have been asked to evaluate the wound and debride while patient is in the hospital. PAST MEDICAL HISTORY: Significant for: 1. Diabetes. 2. Hypertension. 3. Gastroesophageal reflux disease (GERD). 4. Seasonal allergies. PAST SURGICAL HISTORY: 1. Right transmetatarsal amputation. 2. Skin graft. 3. (C) section. 4. Sinus surgery. 5. Hysterectomy. SOCIAL HISTORY: Denies smoking or alcohol. FAMILY HISTORY: Mother with hypertension. ALLERGIES: PINAPPLE, PPD. REVIEW OF SYSTEMS: Positive for recent fever and chills. VITAL SIGNS: Maximum temperature (T-max) 24 hours is 98.l9. LABORATORY DATA: Labs are reviewed. White cell count 7.5. Hemoglobin A1C 7.3. PHYSICAL EXAMINATION: LOWER EXTREMITY EXAMINATION: There is erythema and edema to the right foot with blistering and blood-filled blisters along the medial and lateral aspects of the heel. There is transmetatarsal amputation present of the right foot with a small ulcerated area with granuloma at the distal margin. ASSESSMENT: A 49-year-old diabetic female with diabetic ulceration and cellulitis. TREATMENT: Blisters were drained using #10 blade. An excisional wound debridement was performed at bedside using a dermal curette, including subcutaneous tissue. Wound care per Dr. Masters's orders. She can be discharged on oral antibiotics. She should follow [facility] with [facility].
[2020-05-29 16:00] VITALS: BP 144/74
== END 2020-05-29 17:17 | disposition home or self-care (01) | DRG 720 ==
LOC: M ED 09:06 → M ED INP 11:38 → M PCU 13:16
PROVIDERS: ADMIT Internal Medicine; ATTEND Internal Medicine
PROC: 0H9KXZZ Drainage of Right Lower Leg Skin, External Approach (ICD-10-PCS; principal; 2020-05-29)
PROC: 0JBQ0ZZ Excision of Right Foot Subcutaneous Tissue and Fascia, Open Approach (ICD-10-PCS; 2020-05-29)
DX: A41.9 Sepsis, unspecified organism (principal); E87.2 Acidosis; E11.40 Type 2 diabetes mellitus with diabetic neuropathy, unspecified; E11.65 Type 2 diabetes mellitus with hyperglycemia; E83.42 Hypomagnesemia; L03.115 Cellulitis of right lower limb; E87.6 Hypokalemia; I10 Essential (primary) hypertension; K21.9 Gastro-esophageal reflux disease without esophagitis; J30.2 Other seasonal allergic rhinitis; E78.5 Hyperlipidemia, unspecified; S80.821A Blister (nonthermal), right lower leg, initial encounter; Z20.822 Contact with and (suspected) exposure to COVID-19; Z89.411 Acquired absence of right great toe; Z89.421 Acquired absence of other right toe(s); Z87.828 Personal history of other (healed) physical injury and trauma; Z87.891 Personal history of nicotine dependence; Z79.84 Long term (current) use of oral hypoglycemic drugs; Z79.899 Other long term (current) drug therapy; Z88.7 Allergy status to serum and vaccine; Z91.018 Allergy to other foods; X58.XXXA Exposure to other specified factors, initial encounter; Y92.9 Unspecified place or not applicable

== ENCOUNTER 2020-06-03 09:44 | Inpatient (IN) | payer BC ==
[~2020-06-03] VITALS: Ht 162.6 cm; Wt 75.1 kg
[~2020-06-03 09:44] MED LIST changes: +ALLE180T33 PO; +AMOX875T2 PO; +ATOR1TAB19 PO; +BISO5TAB2 PO; +CALC1TAB27 PO; -HYDROCHLOROthiazide 6.25MG PER 1/4TAB PO SCH; +LISI10TA22 PO; +METF-838 PO; +MONT10TA10 PO; +NASA1SPR NARES; +OMEP-218 PO; +VITA-158 PO
[2020-06-03] MEDS ORDERED: IBUP-1720 PO (10:07)
--- NOTE | 2020-06-03 11:01 | REP ---
INDICATION: pre-op COMPARISON: 08/01/2010 TECHNIQUE: Portable AP view of the chest FINDINGS: The mediastinum and cardiac silhouette are stable and within normal limits for portable technique. The lung samaniego are clear without acute consolidation, effusion, or pneumothorax. Skeletal structures are intact. IMPRESSION: No acute cardiopulmonary process appreciated. <Electronically signed by Jonathon Tabares > 06/03/20 [id number]
[2020-06-03 11:08] LABS: BASO # 0.1 10^3/uL (0.0-0.2); BASO % 0.6 % (0.0-1.0); EOS # 0.2 10^3/uL (0.0-0.5); EOS % 1.2 % (0.0-3.0); HEMATOCRIT 37.6 % (36.0-47.0); HEMOGLOBIN 12.8 g/dl (12.0-15.5); LYMPH # 2.4 10^3/uL (1.5-5.0); LYMPH % 18.9 % (24.0-44.0); MEAN CORPUSCULAR HEMOGLOBIN 30.4 pg (27.0-33.0); MEAN CORPUSCULAR VOLUME 89.3 fl (80.0-96.0); MONO # 0.7 10^3/uL (0.0-0.8); MONO % 5.8 % (2.0-8.0); NEUTROPHILS # 9.3 10^3/uL (1.5-8.5); NEUTROPHILS % 72.3 % (36.0-66.0); PLATELET COUNT, AUTOMATED 554 10^3/uL (150-450); RED BLOOD COUNT 4.21 10^6/uL (4.00-5.40); WHITE BLOOD COUNT 12.9 10^3/uL (4.0-10.0)
[2020-06-03 11:22] LABS: INR 0.89; PARTIAL THROMBOPLASTIN TIME 24.1 SECONDS (24.2-38.5); PROTHROMBIN TIME 12.3 SECONDS (12.5-14.3)
[2020-06-03] MEDS ORDERED: AUGM875T28 PO (11:29)
[2020-06-03 11:36] LABS: BLOOD UREA NITROGEN 12 MG/DL (7-18); CALCIUM LEVEL 9.6 MG/DL (8.5-10.1); CARBON DIOXIDE LEVEL 28 MEQ/L (21-32); CHLORIDE LEVEL 103 MEQ/L (98-107); CREATININE FOR GFR 0.63 MG/DL (0.55-1.30); GLOMERULAR FILTRATION RATE > 60.0 (>51); GLUCOSE, FASTING 165 MG/DL (70-100); POTASSIUM SERUM 3.9 MEQ/L (3.5-5.1); SODIUM LEVEL 139 MEQ/L (136-145)
[2020-06-03] MEDS ORDERED: VANCOMYCIN HCL 1,000 MG, VIAL MATE ADAPTER 1 EACH in NS 250 ML IV SCH (13:00)
[2020-06-03] MEDS ORDERED: GLUCOSE 4GM CHEW TABLET PO PRN (13:30)
[2020-06-03] MEDS ORDERED: GLUCAGON INJ 1MG VIAL SC PRN (13:30)
[2020-06-03] MEDS ORDERED: OMEPRAZOLE 20 MG CAP PO PRN (13:30)
[2020-06-03] MEDS ORDERED: DEXTROSE 50% 50 ML SYRINGE IV PRN (13:30)
[2020-06-03 13:31] LABS: RSV AMPLIFICATION NEGATIVE (NEGATIVE)
[2020-06-03 13:32] LABS: C REACTIVE PROTEIN QUANTITATIV 1.35 MG/DL (0.00-0.30)
--- NOTE | 2020-06-03 13:55 | HPEPDOC ---
General Date of Admission Jun 03, 2020 at 12:47 Date of Service: Jun 03, 2020 Attending Physician: STANFORD CELESTIN MD Chief Complaint The patient is a 49-year-old female admitted with a reason for visit of Cellulitis Diabetic Foot Infection. Source: Patient Exam Limitations: No limitations History of Present Illness Subjective: Pt is a 49 year old female with PMH of DM type 2, HTN, and traumatic injury to R limb, status post metatarsal amputation after being run over by a lawnmower who presents to the ED due to worsening cellulitis/necrotic tissue to the RLE sent by Dr. Masters's office for surgical debridement of wounds by Dr. Nicole. She states that she noticed black discoloration around her wounds shortly after discharge. Admits increasing erythema and pain to the areas as well. She states that she has been taking her Augmentin BID as prescribed. Admits to some diarrhea due to abx use. Denies any nausea, vomiting, abd pain, chest pain, palpitations, fevers, or chills. Pt states that she has been under anesthesia in the past without any adverse reactions. She does not report any SOB or chest pain. She states that she is able to walk and climb stairs without difficultly. She states that she is usually more active but has been unable to due to RLE pain and discomfort. Her last reported meal was 9pm yesterday evening. Pt was recently admitted here at [facility], 05/24 - 05/29, due to cellulitis of RLE. At that time, she presented with RLE erythema, pain, fever of 101.3, and chills. DVT of RLE was ruled out by vascular ultrasound. X-ray of food did not demonstrated osteomyelitis. She also had leukocytosis and lactic acidosis with elevated CRP. She was treated with Vancomycin and Zosyn for 5 days and her leukocytosis and lactic acidosis resolved during her stay. She had bedside debridements performed by Dr. Snider during her stay. Pt was discharged on Augmentin. At the time of d/c pt PE showed that her erythema, warmth, and tenderness had regressed from demarcation lines. Pt was given wound care instructions by Dr. Masters and was instructed to follow up with PCP, podiatry, and wound care after discharge. Pt reports that she has has been following up Dr. Masters. Home Medications Scheduled Amoxicillin/Potassium Clav (Augmentin 875-125 Tablet) 1 Each Tablet, 1 TAB PO BID, (Reported) FILLED 05/29 FOR 10 DAYS Ascorbic Acid (Vitamin C) 500 Mg Tablet, 500 MG PO QHS, (Reported) Atorvastatin Calcium (Atorvastatin Calcium) 10 Mg Tablet, 10 MG PO QHS, (Reported) Bisoprolol/Hydrochlorothiazide (Bisoprolol-Hctz 5-6.25 mg Tab) 1 Each Tablet, 1 TAB PO DAILY, (Reported) Calcium Carbonate/Vitamin D3 (Calcium 600-Vit D3 800 Tablet) 1 Each Tablet, 1 TAB PO DAILY, (Reported) Fexofenadine HCl (Jazzy Allergy) 180 Mg Tablet, 180 MG PO DAILY, (Reported) Lisinopril (Lisinopril) 10 Mg Tablet, 10 MG PO DAILY, (Reported) Metformin HCl (Metformin HCl ER) 500 Mg Tab.er.24h, 2,000 MG PO DAILY, (Reported) TAKES AT LUNCH Montelukast Sodium (Montelukast Sodium) 10 Mg Tablet, 10 MG PO QHS, (Reported) Triamcinolone Acetonide (Nasacort) 10.8 Ml [place], 1 SPRAY NARES DAILY, (Reported) Scheduled PRN Ibuprofen (Ibuprofen) 200 Mg Tablet, 800 MG PO Q6H PRN for PAIN, (Reported) Omeprazole (Omeprazole) 20 Mg Capsule.dr, 20 MG PO QHS PRN for HEARTBURN, (Reported) Allergies Coded Allergies: pineapple (Verified Allergy, Severe, throat swelling, 05/24/20) Watermelon (Verified Allergy, Unknown, LIP SWELLING, 06/03/20) tuberculin,PPD,multi-puncture (Verified Adverse Reaction, Mild, redness at site, 05/24/20) Past Medical History Medical History 1. Diabetes mellitus type 2 2. Hypertension. 3. History of traumatic injury to the right lower extremity, lawnmower accident. 4. GERD 5. Seasonal allergies Surgical History 1. Right transmetatarsal irritation 2. Skin grafting 3. section 4. Sinus Surgery 5. Partial Hysterectomy Family History Patient's father is alive. She is unsure of his medical history. Her mother is alive and diagnosed hypertension. She has 2 brothers, both with hypertension, one with testicular cancer. Social History Patient is currently and lives at home with her . She admits to occasional alcohol use. States she maybe drinks 1-2 beers/wine a week. She denies any current smoking. She states that she has a history of smoking and quit more than 15 years ago. At that time she was smoking approximately 1 pack per day. She is able to complete her ADLs independently. Her primary care provider is Shari Michael [facility] A[facility] History Current/History of A-Fib/PAF?: No Review of Systems Constitutional: Denies: Chills, Fever ENT: Denies: Head Aches, Dysphagia Skin: Reports: Other (Increased erythema, tenderness, and areas of black discoloration to RLE) Pulmonary: Denies: Dyspnea, Cough Cardiovascular: Denies: Chest Pain, Palpitations Gastrointestinal: Reports: Diarrhea; Denies: Nausea, Vomiting, Abdominal Pain, Constipation Neurological: Denies: Weakness, Numbness Psych: Reports: Mood Normal Physical Examination General Exam: Positive: Alert, Cooperative, No Acute Distress Eye Exam: Positive: Conjunctiva & lids normal, EOMI; Negative: Sclera icteric ENT Exam: Positive: Atraumatic, Mucous membr. moist/pink Chest Exam: Positive: Clear to auscultation, Normal air movement; Negative: Rales, Rhonchi, Wheezing Heart Exam: Positive: Rate Normal, Regular Rhythm, Normal S1, Normal S2; Negative: Gallops, Murmurs, Rubs Abdomen Exam: Positive: Normal bowel sounds, Soft; Negative: Tenderness, Hepatospenomegaly Extremity Exam: Positive: Other (Pt has RLE bandaged and coverd. Areas of black necrotic tissue noted to posteriomedial aspect of claves. Wounds of feet are dressed. Erythema noted to RLE. Tenderness to palpation to RLE. ) Neuro Exam: Positive: Normal Speech, Cranial Nerves 3-12 NL Psych Exam: Positive: Mental status NL, Mood NL Vital Signs Vital Signs Date Time Temp Pulse Resp B/P (MAP) Pulse Ox O2 Delivery O2 Flow Rate FiO2 06/03/20 10:28 06/03/20 09:45 97.4 61 18 100 Room Air Laboratory Data Labs 24H Laboratory Tests 2 06/03/20 10:53: Immature Granulocyte % (Auto) 1.2, Neutrophils (%) (Auto) 72.3H, Lymphocytes (%) (Auto) 18.9L, Monocytes (%) (Auto) 5.8, Eosinophils (%) (Auto) 1.2, Basophils (%) (Auto) 0.6, Neutrophils # (Auto) 9.3H, Lymphocytes # (Auto) 2.4, Monocytes # (Auto) 0.7, Eosinophils # (Auto) 0.2, Basophils # (Auto) 0.1, Nucleated Red Blood Cells % (auto) 0.0, Prothrombin Time 12.3, Prothromb Time International Ratio 0.89, Activated Partial Thromboplast Time 24.1L, Anion Gap 8, Glomerular Filtration Rate > 60.0, Calcium Level 9.6 CBC/BMP Laboratory Tests 06/03/20 10:53 Assessment/Plan Assessment/Plan: Pt is a 49 year old female with PMH of DM type 2, HTN, and traumatic injury to R limb, status post metatarsal amputation after being run over by a lawnmower who presents to the ED due to worsening cellulitis/necrotic tissue to the RLE sent by Dr. Masters's office for surgical debridement of wounds by Dr. Nicole. #Necrotic wounds to RLE 2/2 recent cellulitis infection - Pt was recently admitted here from 05/24-05/29 due to cellulitis. She was treated with Vanco and Zosyn for 5 days and discharged on Augmentin. There is increased erythema and warmth to her RLE along with black necrotic tissue. - Pt is being seen by Dr. Masters for wound care of RLE cellulitis. She has had increasing areas of black, necrotic skin of her RLE that requires surgical debridement. She has been sent for admission by Dr. Masters's office for wound debridement by Dr. Nicole in the OR tomorrow. Will have pt NPO after midnight. - Will have pt f/u with Dr. Masters for wound care following discharge. - Infectious disease has been consulted. - MRSA screen pending. - Pt started on Vanco and Piperacillin/Tazobactam. #Leukocytosis - Likely 2/2 skin necrosis. - Pt has been afebrile and is not tachycardic. Denies feeling feverish or having any chills. - Pt has leukocytosis with WBC of 12.9, CRP elevated at 1.35. - ESR is pending. - Pt placed on Vancomycin and Piperacillin/Tazobactam. #Diabetes mellitus type 2 - Sliding scale insulin with hypoglycemic protocol. - Consistent carb diet. Will have pt NPO after midnight. #Hypertension - Lisinopril 10 mg PO daily. - Bisoprolol 5 mg PO daily. - HCTZ 6.25 mg PO daily. #Hyperlipidemia - Atorvastatin 10 mg PO QHS. #Seasonal allergies - Jazzy 180 mg PO Daily. #GERD - Omeprazole 20 mg PO QHS PRN. DVT Prophylaxis: None. Pt is scheduled for wound debridement in OR tomorrow. Disposition: Anticipate discharge within the next 48 hours after OR debridement tomorrow. Will have pt NPO after midnight. Plan / VTE VTE Prophylaxis Ordered?: No (Pt to undergo wound debridement in OR today. ) GME ATTESTATION GME ATTESTATION My faculty preceptor for this patient encounter was physically present during the encounter and was fully available. All aspects of the patient interview, examination, medical decision making process, and medical care plan development were reviewed and approved by the faculty preceptor. The faculty preceptor is aware and concurs with the plan as stated in the body of this note and will attest to such by his/her cosignature. ATTENDING NOTE I, Stanford Celestin, have independently examined this patient and performed my own physical exam, as well as reviewed the documentation and edited where necessary. I have discussed in detail with the resident / student the findings and plan of treatment as documented by the resident / student and edited their note. I agree with their findings and treatment plan and have edited their documentation. I will continue to follow the patient during this hospital stay. Samantha WILSON OMS-3 Jun 03, 2020 13:55 STANFORD CELESTIN MD Jun 03, 2020 15:10
[2020-06-03] MEDS ORDERED: PIPERACILLIN/TAZOBACTAM SOD 3.375 GM in D5W MINI-BAG PLUS 50 ML IV SCH (14:00)
[2020-06-03] MEDS ORDERED: CEFTAROLINE FOSAMIL 600 MG in D5W MINI-BAG PLUS 50 ML IV SCH (14:00)
[2020-06-03 14:20] LABS: ERYTHROCYTE SEDIMENTATION RATE 73 mm/hr (0-30)
[2020-06-03] MEDS ORDERED: VANCOMYCIN HCL 1,000 MG, VIAL MATE ADAPTER 1 EACH in NS 250 ML IV ONE ×2 (15:00→16:00)
[2020-06-03 15:30] VITALS: BP 106/61
[2020-06-03] MEDS: HumaLOG INSULIN (NovoLOG) PER UNIT SC SCH (18:15)
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
--- NOTE | 2020-06-03 18:33 | IPNPDOC ---
Text Note Date of Service The patient was seen on 06/03/20. NOTE Interval update: - I called and discussed case with Dr. Masters and Dr. Florez is here at the bedside. - Currently patient does not exhibit any signs of systemic illness - She does have a mild leukocytosis but her CRP has improved significantly compared to prior admission - Area on her right lower extremity has been examined; there are areas of necrosis on the surface of her leg - however area of cellulitis has improved compared to previous - Plan is for MRI of leg / ankle to evaluate depth of injury - Discussed with Dr. Florez; will DC Zosyn; c/w Vancomycin alone - Plastic surgery, Dr. Nicole has evaluate patient; recommends possible transfer for vascular surgery given extent of necrosis - Case also discussed with Podiatry, Dr. Snider - who will evaluate patient in the morning - If patient's leg shows worsening changes then a transfer for vascular surgery will be considered - I have discussed this plan with the patient; she is 100% agreeable and in fact does not want to be transferred and feels that this can be managed here VSShraddha, I+O VSShraddha, I+O Laboratory Tests 06/03/20 10:53 Vital Signs Date Time Temp Pulse Resp B/P (MAP) Pulse Ox O2 Delivery O2 Flow Rate FiO2 06/03/20 15:30 97.1 65 18 106/61 (76) 98 Room Air UMESH HENDERSON MD Jun 03, 2020 18:33
--- NOTE | 2020-06-03 20:01 | ECGEPIP ---
[facility] - ED Test Date: 2020-06-03 Pat Name: JOEL CRUZ Department: Room: - Gender: Female Commercial Attorney: KYLAH : 1970 Requested By: Geuro Terry Order Number: [id number] Reading MD: Tia Avila Measurements Intervals Gordon Rate: 61 P: 21 [place]: 160 QRS: -18 QRSD: 96 T: -8 QT: 460 QTc: 463 Interpretive Statements Normal sinus rhythm Moderate voltage criteria for LVH, may be normal variant ( R in aVL , Neel product ) NSTTW abnormalities Electronically Signed on 06-03-2020 20:01:21 EDT by Tia Avila
[2020-06-03] MEDS ORDERED: PROHANCE 279.3MG/ML 15ML VIAL As Ordered ONE (21:21)
[2020-06-03 22:00] VITALS: BP 134/74
--- NOTE | 2020-06-03 22:36 | REPVR ---
PROCEDURE INFORMATION: Exam: MR Right Lower Extremity Without and With Contrast, Tibia Fibula Exam date and time: 06/03/2020 9:47 PM Age: 49 years old Clinical indication: Condition or disease; Prior surgery; Surgery date: 6+ months; Patient HX: Partial foot amputation, HX cellulitis, current pain and severe cellulitis and blisters from heel to mid tib/fib TECHNIQUE: Imaging protocol: MR of the Right lower extremity without and with contrast. Exam focused on the tibia and fibula. Contrast material: PROHANCE; Contrast volume: 15 ml; Contrast route: INTRAVENOUS (IV); COMPARISON: US UNI LOW EXTREM ARTERIAL LIMIT 05/27/2020 11:14 AM FINDINGS: Bones/joints: The right tibia and fibula are intact and demonstrate normal bone marrow signal. There are no confluent areas of decreased T1 signal, increased fluid sensitive signal, enhancement in the bones, bony destructive changes, or periostitis to suggest osteomyelitis. Muscles: There is mildly increased fluid sensitive signal in the right medial and lateral head of gastrocnemius muscles, which may represent myositis, grade 1 strains, or denervation edema. There is severe fatty atrophy of the muscles of the right foot. Soft tissues: There is soft tissue swelling and edema in the subcutaneous tissues of the right calf and right ankle, which is compatible with cellulitis. No drainable rim enhancing soft tissue fluid collection is noted to suggest an abscess. There is no fluid in the intermuscular fascial planes, thickening or enhancement of the deep fascial planes, or obvious gas in the soft tissues to suggest necrotizing fasciitis. Vasculature: No deep vein thrombosis is noted in the right knee or right calf. IMPRESSION: 1. No MR evidence for osteomyelitis, an abscess, or necrotizing fasciitis in the right calf. 2. Cellulitis in the right calf. 3. Mildly increased fluid sensitive signal in the right medial and lateral head of gastrocnemius muscles, which may represent myositis, grade 1 strains, or denervation edema. 4. No deep vein thrombosis in the right knee or right calf. Electronically signed by: Emerson Lee On 06/03/2020 22:36:41 PM
--- NOTE | 2020-06-03 22:36 | REPVR ---
PROCEDURE INFORMATION: Exam: MR Right Lower Extremity Joint Without and With Contrast; Ankle Exam date and time: 06/03/2020 9:47 PM Age: 49 years old Clinical indication: Condition or disease; Prior surgery; Surgery date: 6+ months; Patient HX: Partial foot amputation, HX cellulitis, current pain and severe cellulitis and blisters from heel to mid tib/fib TECHNIQUE: Imaging protocol: MR of the Right lower extremity without and with contrast. Exam focused on the ankle. Contrast material: PROHANCE; Contrast volume: 15 ml; Contrast route: INTRAVENOUS (IV); COMPARISON: US UNI LOW EXTREM ARTERIAL LIMIT 05/27/2020 11:14 AM FINDINGS: Bones and cartilage: Postoperative changes are noted from a right transmetatarsal amputation. There are no confluent areas of decreased T1 signal, increased fluid sensitive signal, enhancement in the bones, bony destructive changes, or periostitis to suggest osteomyelitis. There is no fracture, dislocation, or osteochondral lesion. Joint spaces: No joint effusion. LIGAMENTS: Distal tibiofibular syndesmosis: The distal tibiofibular syndesmosis is intact. Anterior talofibular ligament: The anterior talofibular ligament is intact. Posterior talofibular ligament: The posterior talofibular ligament is intact. Calcaneofibular ligament: The calcaneofibular ligament is intact. Deltoid ligament complex: The deltoid ligament complex is intact. Spring ligament complex: Intact. TENDONS: Flexor tendons of foot: There are amputation defects involving the flexor tendons. No acute tear. Tibialis posterior tendon: The tibialis posterior tendon is intact. No tendinosis. No tenosynovitis. Peroneal tendons: The peroneal tendons are intact. No tendinosis. No tenosynovitis. Extensor tendons of foot: There are amputation defects involving the extensor tendons. No acute tear. Tibialis anterior tendon: The tibialis anterior tendon is intact. No tendinosis. No tenosynovitis. Achilles tendon: The Achilles tendon is intact. No tendinosis. No peritendinitis. Tarsal canal (Sinus tarsi): The roots of the inferior extensor retinaculum, cervical ligament, and interosseous talocalcaneal ligament are intact. No replacement of the normal fatty signal in the sinus tarsi is noted to suggest a sinus tarsi syndrome. Tarsal tunnel: The tarsal tunnel is unremarkable. Muscles: There is severe fatty atrophy of the muscles of the right foot. Soft tissues: There is a soft tissue ulcer or wound at the site of the right transmetatarsal amputation defect. No drainable rim enhancing soft tissue fluid collection is noted to suggest an abscess. No soft tissue gas is identified. There is soft tissue swelling and edema in the subcutaneous tissues along the anterior, medial, lateral, and posterior aspect of the right hindfoot, which is compatible with cellulitis. Plantar fascia: The plantar fascia is intact. No evidence for plantar fasciitis or plantar fibromatosis. There is a tiny right plantar calcaneal spur. IMPRESSION: 1. No MR evidence for osteomyelitis or an abscess in the right ankle. 2. Soft tissue ulcer or wound at the site of the right transmetatarsal amputation defect. 3. Evidence for cellulitis in the right ankle. Electronically signed by: Emerson Lee On 06/03/2020 22:36:32 PM
[2020-06-03] MEDS: ASCORBIC ACID 500 MG TAB PO SCH (23:12)
[2020-06-03] MEDS: VANCOMYCIN HCL 1,000 MG, VIAL MATE ADAPTER 1 EACH in NS 250 ML IV SCH (23:13)
[2020-06-03] MEDS: ATORVASTATIN 10 MG TAB PO SCH (23:13)
[2020-06-03] MEDS: MONTELUKAST 10 MG TAB PO SCH (23:13)
[2020-06-03] MEDS: ACETAMINOPHEN TAB 650MG DOSE (2X325MG) PO PRN (23:13)
[2020-06-04] MEDS: HumaLOG INSULIN (NovoLOG) PER UNIT SC SCH ×4 (05:53→18:20)
[2020-06-04 06:00] VITALS: BP 126/67
[2020-06-04] MEDS: VANCOMYCIN HCL 1,000 MG, VIAL MATE ADAPTER 1 EACH in NS 250 ML IV SCH ×3 (06:56→23:57)
[2020-06-04 07:15] LABS: HEMATOCRIT 34.7 % (36.0-47.0); MEAN CORPUSCULAR HEMOGLOBIN 30.2 pg (27.0-33.0); MEAN CORPUSCULAR HGB CONC 34.6 g/dl (32.0-36.5); MEAN CORPUSCULAR VOLUME 87.4 fl (80.0-96.0); PLATELET COUNT, AUTOMATED 499 10^3/uL (150-450); RED BLOOD COUNT 3.97 10^6/uL (4.00-5.40); WHITE BLOOD COUNT 9.4 10^3/uL (4.0-10.0)
[2020-06-04 07:41] LABS: BLOOD UREA NITROGEN 9 MG/DL (7-18); CALCIUM LEVEL 8.9 MG/DL (8.5-10.1); CARBON DIOXIDE LEVEL 27 MEQ/L (21-32); CHLORIDE LEVEL 105 MEQ/L (98-107); CREATININE FOR GFR 0.62 MG/DL (0.55-1.30); GLOMERULAR FILTRATION RATE > 60.0 (>51); GLUCOSE, FASTING 194 MG/DL (70-100); SODIUM LEVEL 141 MEQ/L (136-145)
[2020-06-04 08:55] LABS: C REACTIVE PROTEIN QUANTITATIV 1.29 MG/DL (0.00-0.30)
[2020-06-04] MEDS: FEXOFENADINE 60 MG TAB PO SCH (08:55)
[2020-06-04] MEDS: HYDROCHLOROthiazide 6.25MG PER 1/4TAB PO SCH (08:55)
[2020-06-04] MEDS: bisoproloL fumarate 5 MG TAB PO SCH (08:58)
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
[2020-06-04 09:31] LABS: ERYTHROCYTE SEDIMENTATION RATE 66 mm/hr (0-30)
[2020-06-04] MEDS: NS 1,000 ML IV SCH (11:05)
--- NOTE | 2020-06-04 13:04 | CR ---
CONSULTATION DATE: 06/04/2020 REASON FOR CONSULTATION: Foot ulceration. Gabby Waddell is a 49-year-old female who was seen by myself last week due to right foot and leg ulceration and infection. She had a wound debridement by myself at bedside. She was discharged and was seen by Dr. Masters. Dr. Masters saw her Wednesday, noted worsening conditions of the ulcers, and she was sent to the hospital to be re-evaluated. MEDICAL HISTORY: Significant for: 1. Diabetes. 2. Hypertension. 3. Gastroesophageal reflux disease (GERD). 4. Seasonal allergies. SURGICAL HISTORY: 1. Right transmetatarsal amputation (TMA). 2. Skin graft. 3. section. 4. Sinus surgery. 5. Hysterectomy. SOCIAL HISTORY: Denies smoking and alcohol use. ALLERGIES: Pineapple, PPD. LOWER EXTREMITY EXAMINATION: There is circumferential ulceration around the ankle and posterior calf on the right side with some necrotic tissue. Labs are reviewed. White blood cell count 7.5, ESR 35, CRP 27.4. Right foot arterial study: No significant luminal narrowing or stenosis. There is monophasic Doppler all the way to the distal vessels. Lower extremity MRI: No obvious signs of osteomyelitis. There is cellulitis in the calf. No signs of necrotizing fasciitis or soft tissue gas. ASSESSMENT: A 49-year-old diabetic female with right lower extremity ulceration/cellulitis. Patient seen. Dr. Nicole was in the room present. There is certainly concern that there may be deep space ulceration, which may be adjacent to the Achilles tendon or the medial tendons and arteries. If this is the case, free flap is not able to be performed here, and she would require transfer to a different facility. My plan is to do a debridement in the operating room (OR) tomorrow to remove the nonviable necrotic tissue. Hopefully the wound is not deep and can continue to be managed here. If wound approaches any high-risk structures, at that time will discontinue debridement and plan for transfer. Patient is agreeable with this plan.
[2020-06-04 14:00] VITALS: BP 128/67
[2020-06-04] MEDS: HEPARIN SOD (PORCINE) 5000UNITS/ML 1ML VIAL/SYRINGE SQ SCH (14:00)
--- NOTE | 2020-06-04 15:25 | IPNPDOC ---
Date Seen The patient was seen on 06/04/20. Progress Note SUBJECTIVE: Patient was seen and examined this morning. There have been no adverse events reported overnight. On admission patient was planned for OR debridement. Unfortunately this was delayed due to concern of vascular issues. There is currently no vascular coverge at [facility]. The patient has stated that she would prefer not to be transferred to [place]. Case is planned to be discussed today amongst Dr. Masters, Dr. Nicole, Dr. Florez, Dr. Snider, and Primary in regards to plan moving forward. OBJECTIVE PHYSICAL EXAMINATION: VITAL SIGNS: Please see below. GENERAL: Awake, alert, and oriented. Appears in no acute distress. Lying comfortably in bed. HEENT: Atraumatic, normocephalic. Eyes are nonicteric. Trachea is midline. CARDIOVASCULAR: Normal S1. S2. Regular rate and rhythm. No clicks, rubs, or murmurs RESPIRATORY: Clear breath sounds bilaterally. No wheezes, rhonchi, or rales ABDOMINAL: Soft, nondistended. Nontender. Normoactive bowel sounds throughout EXTREMITIES: No edema. Right lower extremity with calf atrophy and foot deformation from transmetatarsal amputation. An area of necrotic tissue overlying the right calf region with additional area on the right heel. The area appears improved from yesterdays examination. The extremity is warm and appears well perfused. Does not appear to be ischemic limb NEUROLOGICAL: No focal neurological deficits PSYCHOLOGICAL: Mood and affect appear appropriate LABORATORY DATA, IMAGING STUDIES, MICROBIOLOGY: Please see below. DVT prophylaxis ordered?: Heparin SQ ASSESSMENT AND PLAN: Patient is a 49 year old female with past medical history significant for traumatic injury to her right foot requiring transmetatarsal amputation, diabetes mellitus type 2, and hypertension who was sent from Dr. Sams office to [facility] for debridement of right leg necrotic tissue with Dr. Nicole. PROBLEMS: 1. Right leg and foot cellulitis with tissue necrosis -Patient had presented with an area of necrotic tissue from cellulitis. She was recently discharged and seen by Dr. Masters. Patient was felt to need debridement to the extent that could not be completed in the outpatient setting. She was sent to [facility] with plans to have debridement with Dr. Nicole of Plastic Surgery. On evaluation Dr. Nicole had concern for vascular issue and requested vascular surgery to see the patient. Infectious disease, Podiatry, and Dr. Stillerman felt as if the leg was well perfused and the patient could be debrided. -At this point in time the patient does not appear to have limb ischemia. CK is not elevated. The area of necrosis does appear more superficial. MRI obtained does not demonstrate any osteomyelitis, abscess, or necrotizing fasciitis. She has had a previous arterial ultrasound which demonstrated good flow. -Will continue IV antibiotics for now with Vancomycin -Will consider transfer to [place] for vascular evaluation. May also consider discharge home on PO antibiotics with follow-up with [facility] vascular on Wednesday as patient appears to be healing to some degree. -Provider meeting and discussion planned for 1600 hrs today 2. Diabetes Mellitus Type 2 -Sliding scale coverage ACHS 3. HTN -Continue Lisinopril, Zebeta, and hydrochlorothiazide 4. HLD -Continue atorvastatin 5. GERD -Continue Prilosec 6. Seasonal Allergies -Continue Jazzy and Singulair 7. DVT prophylaxis -Heparin DISPOSITION: Will discuss further with consultants involved. Plan for possible transfer for vascular surgical services vs discharge home on PO antibiotics with follow-up with vascular outpatient VS, I&O, 24H, [place] Vital Signs/I&O Vital Signs Date Time Temp Pulse Resp B/P (MAP) Pulse Ox O2 Delivery O2 Flow Rate FiO2 06/04/20 14:00 97.8 74 17 128/67 (87) 98 Room Air I&O- Last 24 Hours up to 6 AM 06/04/20 06:00 Intake Total 590 ml Output Total 800 ml Balance -210 ml Laboratory Data 24H LABS Laboratory Tests 2 06/03/20 15:02: Anti-Streptolysin O Antibody 56.3 06/03/20 17:23: Bedside Glucose (Misc Panel) 124H 06/03/20 19:14: Total Creatine Kinase 34 06/03/20 22:00: Methicillin-Resist S.aureus DNA PCR NOT DETECTED 06/04/20 00:23: Bedside Glucose (Misc Panel) 188H 06/04/20 05:49: Bedside Glucose (Misc Panel) 170H 06/04/20 06:44: Nucleated Red Blood Cells % (auto) 0.0, Erythrocyte Sedimentation Rate 66H, Anion Gap 9, Glomerular Filtration Rate > 60.0, Calcium Level 8.9, C-Reactive Protein, Quantitative 1.29H 06/04/20 12:01: Bedside Glucose (Misc Panel) 140H 06/04/20 13:55: CBC/BMP Laboratory Tests 06/04/20 06:44 Microbiology Microbiology 06/03/20 Gram Stain - Final, Resulted 06/03/20 Wound Culture, Resulted Pending GME ATTESTATION GME ATTESTATION My faculty preceptor for this patient encounter was physically present during the encounter and was fully available. All aspects of the patient interview, examination, medical decision making process, and medical care plan development were reviewed and approved by the faculty preceptor. The faculty preceptor is aware and concurs with the plan as stated in the body of this note and will attest to such by his/her cosignature. ATTENDING NOTE Attending Attestation: Patient independently seen and examined. I have discussed in detail with the resident / student the findings and plan of treatment as documented by the resident / student. I agree with their findings and treatment plan and have edited their documentation. I will continue to follow the patient during this hospital stay. Extensive discussion with plastic surgery, podiatry and infectious disease. Attempted to discuss further with vascular surgery at [facility], however no bed availability. Also contacted vascular surgery at [facility], however plastic surgery not available at [facility]. Patient is not interested in transfer. Plan is to proceed with debridement with podiatry. SEYMOUR LOPEZ DO Jun 04, 2020 15:25 WARREN TAM MD Jun 05, 2020 09:31
--- NOTE | 2020-06-04 17:51 | CR ---
CONSULTATION DATE: 06/04/2020 CONSULTATION REQUESTED BY: Dr. Florez REASON FOR CONSULTATION: Treatment suggestions regarding right lower extremity wounds. Wound care telemedicine provides a visual assessment without the benefit of physical examination of a wound. It can assist with establishing a diagnosis and etiology. This allows for an initial treatment plan. As wounds often change, it may necessary to modify the original care. Our recommendations for treatment and periodic followup for wound reassessment to monitor wound progression. Failure to comply with this may result in nonhealing of the wound, possible complications, and/or a poor outcome. Patient was evaluated via telemedicine 1 week earlier while hospitalized and found to have resolving cellulitis involving the right lower extremity pretibial area extending to involvement of the right calf. Additionally, there were deep tissue injuries involving the right ankle area extending almost circumferential to involve the posterior and lateral malleolar area., These wounds presented as hemorrhagic bullous lesions which is consistent with a deep tissue injury. This type of wound often progress to a full-thickness wound of various depth and involvement of the deep structures. The patient appeared to clinically improve being afebrile with now a normal white count and minimal right lower extremity pain Patient had been discharged over the weekend and was scheduled for followup at our wound care clinic. She was there seen on 06/03/2020, and at that time her wounds had deteriorated. There was diffuse tenderness involving the right ankle and lower leg, the bullous lesions had not improved with necrotic raised epidermal and superficial dermal tissue. There was dry eschar involving the right pretibial area and calf. At my recommendation, the patient was readmitted to [facility], and the case was discussed with the original hospitalist involved in the case Dr. Celestin. At my suggestion an MRI was obtained, which did not show any muscle necrosis, gas formation, or deep tissue abscess. The patient's repeat laboratory studies showed no significant leukocytosis , A recent hemoglobin A1c 7.3, and in general no significant laboratory abnormalities. The patient appeared comfortable, and was afebrile. Earlier today the case was discussed with Dr. Snider, ham rolling machine operator who had seen the patient on her previous recent admission for drainage of the bullous lesions. I indicated to Dr. Snider that removal of the bullous lesions involving the ankle and debridement of the calf and pretibial areas was indicated. He has the patient scheduled for the operating room (OR) on 06/05/2020 to accomplish this. As this is an extensive wound involving the ankle region and calf and pretibial area, OR debridement with intravenous (IV) sedation would be indicated. At Dr. Florez's request, telemedicine was scheduled today and the patient's wounds visualized and discussed with her as she was at bedside in the patient's room. There is minor clinical improvement in that there is no significant edema involving the leg, the bullous lesions have partially decompressed, and there is a small central portion of the medial malleolar area wound which shows early granulation tissue. There is dry superficial epidermis and most probable ischemic dermal layers involving the calf and pretibial area. At present the patient has stable vital signs and is not in significant pain or tenderness. A recent arterial ultrasound had been performed at her last admission, which showed no occlusive disease and no gross abnormalities. RECOMMENDATIONS AT THIS TIME: All devitalized tissue should be debrided and removed. This is best accomplished in the operating room were a full and complete debridement under anesthesia can be performed There is nothing to gain by applying Betadine to the wounds and/or leaving necrotic tissue in place. Dressing changes post debridement for all wounds should be Hydrofera Blue transfer covered with an OptiLock and/or extra-absorb dressing secured with a Kerlix. At the time of daily dressing changes the wounds should be cleaned with Vashe wound cleanser for 10 minutes using 4 x 4 soaked gauzes applied directly to all wounds.. Patient should be at bedrest with mild Trendelenburg position for the bed to assist in venous decompression and lower extremity edema. A heel float boot should be applied to the right foot to offload the heel and prevent any trama to that region. Strict glycemic control for the patient's diabetes is mandatory and dietary supplements such as Glucerna and Delbert are strongly indicated After OR debridement on 06/05/2020, patient should be re-evaluated by telemedicine on 06/06/2020 to assess progress and make any additional dressing change modifications if indicated . Dr. Florez indicated that the patient is covered with antibiotic therapy, which I would agree with. There is no indication for transfer at this time and no indication for amputation of the right lower extremity. [facility] HOSPITALStef
[2020-06-04] MEDS: ACETAMINOPHEN TAB 650MG DOSE (2X325MG) PO PRN (18:19)
[2020-06-04] MEDS: ASCORBIC ACID 500 MG TAB PO SCH (20:45)
[2020-06-04] MEDS: ATORVASTATIN 10 MG TAB PO SCH (20:45)
[2020-06-04] MEDS: MONTELUKAST 10 MG TAB PO SCH (20:45)
[2020-06-04 22:00] VITALS: BP 112/61
[2020-06-05] MEDS: NS 1,000 ML IV SCH ×2 (00:48→05:07)
[2020-06-05] MEDS: HumaLOG INSULIN (NovoLOG) PER UNIT SC SCH ×4 (00:56→18:00)
[2020-06-05 06:00] VITALS: BP 119/66
[2020-06-05] MEDS: VANCOMYCIN HCL 1,000 MG, VIAL MATE ADAPTER 1 EACH in NS 250 ML IV SCH ×3 (06:30→23:09)
[2020-06-05 06:53] LABS: HEMATOCRIT 33.5 % (36.0-47.0); HEMOGLOBIN 11.5 g/dl (12.0-15.5); MEAN CORPUSCULAR HEMOGLOBIN 30.5 pg (27.0-33.0); MEAN CORPUSCULAR HGB CONC 34.3 g/dl (32.0-36.5); MEAN CORPUSCULAR VOLUME 88.9 fl (80.0-96.0); PLATELET COUNT, AUTOMATED 461 10^3/uL (150-450); RED BLOOD COUNT 3.77 10^6/uL (4.00-5.40); WHITE BLOOD COUNT 8.8 10^3/uL (4.0-10.0)
[2020-06-05 07:21] LABS: BLOOD UREA NITROGEN 8 MG/DL (7-18); CALCIUM LEVEL 9.2 MG/DL (8.5-10.1); CARBON DIOXIDE LEVEL 28 MEQ/L (21-32); CHLORIDE LEVEL 108 MEQ/L (98-107); GLOMERULAR FILTRATION RATE > 60.0 (>51); GLUCOSE, FASTING 183 MG/DL (70-100); POTASSIUM SERUM 3.9 MEQ/L (3.5-5.1); SODIUM LEVEL 141 MEQ/L (136-145)
--- NOTE | 2020-06-05 08:17 | IPN ---
PROGRESS NOTE DATE: 06/04/2020 Dictated by Curtis Rice DO in conjunction with attending physician Usama Florez M.D. SUBJECTIVE: Gabby was seen and examined this afternoon at the bedside by the infectious disease service. She underwent MRI studies of the RLE and right ankle yesterday evening at the suggestion of Dr. Masters (wound care). These studies did not show any deep tissue abscess, muscle necrosis, or gas formation. There was also no signs pointing towards osteomyelitis or necrotizing fasciitis of the calf. There was some cellulitis in the right calf and some mild signs of possible myositis. There was no DVT seen in the right knee or right calf. The patient remained afebrile overnight, as well as today. She had been n.p.o. off and on in preparation for possible surgical debridement, but has been drinking some kerri carol with no issue as debridement is slated for tomorrow. The patient herself denies any current overnight fever, chills, night sweats. She reports her RLE pain is quite minimal at this time, and she is ambulating with the assistance of crutches to and from the bathroom with no significant issues. When she has dressing changes or has the affected area palpated, she does have some "burning discomfort," but denies any significant pain. She denies any chest pain, palpitations, shortness of breath, abdominal pain, nausea, vomiting, diarrhea, or constipation. OBJECTIVE: VITAL SIGNS: Temperature of 97.8, heart rate of 74, respiratory rate of 17, blood pressure of 128/67, SpO2 of 98% on room air. GENERAL: Pleasant female who is mildly anxious at times during the exam. She is alert and oriented x3. HEENT: Normocephalic, atraumatic. Noninjected, anicteric sclerae. ORAL CAVITY: Moist mucous membranes with no pharyngeal erythema or exudate appreciated. CARDIOVASCULAR: Regular rate, regular rhythm. Normal S1, S2 with no distinct appreciated murmurs or rubs. 2+ radial pulses bilaterally with 2+ right popliteal pulse and 2+ left dorsalis pedis pulse. RESPIRATORY: Clear to auscultation bilaterally with no appreciated adventitious breath sounds. Symmetric chest expansion with no accessory muscle use and breathing room air. GASTROINTESTINAL: Abdomen is soft, mildly obese, nontender, and nondistended. Hypoactive bowel sounds throughout with no appreciated rigidity. EXTREMITIES: There is an orange tint to the right lower extremity likely secondary to Betadine that was applied. Overall, the right lower extremity affected area appears improved from yesterday. There is some underlying visible good granulation tissue over the right medial malleolus. There remains areas of necrotic tissue around the medial malleolus extending up to the mid calf both the anterior and posterior leg. There is some discomfort with palpation of the area and there is no active bleeding, drainage, or significant induration of the right lower extremity. There is no significant edema of the right lower extremity and the necrotic tissue that is visualized appears to be dry. Her right foot is status post metatarsal amputation. NEUROLOGIC: Alert and oriented x3 with no focal deficits appreciated. PSYCHIATRIC: Mood and affect appear appropriate. LABORATORY DATA: CBC - WBC 9.4, hemoglobin 12, hematocrit 34.7, platelet count of 499,000, repeat ESR of 66. BMP Sodium 141, potassium 4.0, chloride 105, bicarb 27, BUN 9, creatinine 0.62, glucose 194, calcium 8.9, repeat C-reactive protein 1.29. Vancomycin trough this afternoon was 17.5. Serology Antistreptolysin antibodies result of 56.3 (this is unremarkable), and MRSA PCR was not detected. The gram stain from wound culture obtained yesterday showed no cells or organisms seen. The official wound culture result remains pending. IMAGING DATA: Right ankle MRI, obtained on the evening of 06/03 had documented impression of "no MR evidence for osteomyelitis or an abscess in the right ankle. Soft tissue ulcer or wound at the site of the right transmetatarsal amputation defect. Evidence for cellulitis in the right ankle." Right lower extremity MRI obtained on the evening of 06/03 has documented impression of "no MR evidence for osteomyelitis, an abscess, or necrotizing fasciitis in the right calf. There is cellulitis in the right calf. Mildly increased fluid sensitive signal in the right medial and lateral head of the gastrocnemius muscles, which may represent myositis, grade 1 strains, or denervation edema. No deep vein thrombosis in the right knee or right calf." IMPRESSION AND PLAN: Necrotic/hemorrhage cellulitis versus erysipelas of the right lower extremity. -The patient continues to remain afebrile and her white count returned to within normal limits today. Her ESR is trending down and her CRP remains significantly decreased from her admission last week. Important to note that the arterial ultrasound obtained just last week on previous admission showed no gross abnormalities nor any occlusive disease. The MRI studies obtained last evening showed no signs of osteomyelitis, necrotizing fasciitis, or abscess formation. There was a collaborative discussion held at the bedside today via Facetime between Dr. Masters of wound care and Dr. Florez of the infectious disease. Dr. Masters recommended the patient have the necrotic tissue debrided tomorrow with Dr. Snider of the podiatry service, and has documented his post-debridement dressing recommendations. From the standpoint of infectious disease, the patient continues with intravenous (IV) vancomycin. We recommend that should there be no vascular complications or significant issues identified during the debridement tomorrow, it would be acceptable to discontinue her antibiotics after the debridement and okay to discharge her home from the hospital afterwards. She has received a total of 12 days of antibiotics to this point, so she would not need to be discharged with any home antibiotic coverage. As stated on yesterday's documentation, the etiology of this cellulitis vs erysipelas is likely either Streptococcus or Staphylococcus. The intravenous vancomycin that she is currently receiving offers appropriate coverage. WOLF
[2020-06-05] MEDS: bisoproloL fumarate 5 MG TAB PO SCH (09:12)
[2020-06-05] MEDS: HYDROCHLOROthiazide 6.25MG PER 1/4TAB PO SCH (09:13)
[2020-06-05] MEDS: FEXOFENADINE 60 MG TAB PO SCH (09:13)
[2020-06-05] MEDS: ACETAMINOPHEN TAB 650MG DOSE (2X325MG) PO PRN (09:13)
--- NOTE | 2020-06-05 11:24 | IPNPDOC ---
Date Seen The patient was seen on 06/05/20. Progress Note SUBJECTIVE: Patient was seen and examined this morning. She currently has no complaints. She is planned to go for debridement tonight with Dr. Snider. No adverse events have been reported overnight OBJECTIVE PHYSICAL EXAMINATION: VITAL SIGNS: Please see below. GENERAL: Awake, alert, and oriented. Appears in no acute distress. Lying comfortably in bed. HEENT: Atraumatic, normocephalic. Eyes are nonicteric. Trachea is midline. CARDIOVASCULAR: Normal S1, S2. Regular rate and rhythm. No clicks rubs or murmurs RESPIRATORY: Clear vesicular breath sounds bilaterally. No wheezes, rhonchi, or rales ABDOMINAL: soft, nondistended. Nontender. Normoactive bowel sounds EXTREMITIES: No edema. Right lower extremity with calf atrophy and foot deformation from transmetatarsal amputation. An area of necrotic tissue overlying the right calf region with additional area on the right heel. The extremity is warm and appears well perfused. Not worsened from previous examination NEUROLOGICAL: No focal neurological deficits PSYCHOLOGICAL: Mood and affect appear appropriate LABORATORY DATA, IMAGING STUDIES, MICROBIOLOGY: Please see below. DVT prophylaxis ordered?: Heparin SQ ASSESSMENT AND PLAN: Patient is a 49 year old female with past medical history significant for traumatic injury to her right foot requiring transmetatarsal amputation, diabetes mellitus type 2, and hypertension who was sent from Dr. Sams office to [facility] for debridement of right leg necrotic tissue with Dr. Nicole. PROBLEMS: 1. Right leg and foot cellulitis with tissue necrosis -Patient planned for OR debridement with Dr. Snider today. Necrotic tissue appears similar to previous examination without worsening. If complications arise during debridement in which debridement approaches vascular structures then patient may need transfer to facility with vascular surgery coverage. -Will continue IV antibiotics with Vancomycin -ID following. Recommendations and assistance appreciated 2. Diabetes Mellitus Type 2 -Sliding scale coverage ACHS 3. HTN -Continue Lisinopril, Zebeta, and hydrochlorothiazide 4. HLD -Continue atorvastatin 5. GERD -Continue Prilosec 6. Seasonal Allergies -Continue Jazzy and Singulair 7. DVT prophylaxis -Heparin DISPOSITION: Plan for OR debridement tonight VS, I&O, 24H, Fishbone Vital Signs/I&O Vital Signs Date Time Temp Pulse Resp B/P (MAP) Pulse Ox O2 Delivery O2 Flow Rate FiO2 06/05/20 09:13 119/66 3/31/21 09:12 69 06/05/20 06:00 97.4 19 94 Room Air I&O- Last 24 Hours up to 6 AM 06/05/20 06:00 Intake Total 660 ml Output Total 0 ml Balance 660 ml Laboratory Data 24H LABS Laboratory Tests 2 06/04/20 12:01: Bedside Glucose (Misc Panel) 140H 06/04/20 13:55: Vancomycin Level Trough 17.5 06/04/20 16:38: Bedside Glucose (Misc Panel) 182H 06/04/20 20:29: Bedside Glucose (Misc Panel) 209H 06/05/20 00:42: Bedside Glucose (Misc Panel) 136H 06/05/20 05:58: Bedside Glucose (Misc Panel) 171H 06/05/20 06:40: Nucleated Red Blood Cells % (auto) 0.0, Anion Gap 5L, Glomerular Filtration Rate > 60.0, Calcium Level 9.2 CBC/BMP Laboratory Tests 06/05/20 06:40 Microbiology Microbiology 06/03/20 Gram Stain - Final, Resulted 06/03/20 Wound Culture, Resulted Pending GME ATTESTATION GME ATTESTATION My faculty preceptor for this patient encounter was physically present during the encounter and was fully available. All aspects of the patient interview, exa mination, medical decision making process, and medical care plan development were reviewed and approved by the faculty preceptor. The faculty preceptor is aware and concurs with the plan as stated in the body of this note and will attest to such by his/her cosignature. ATTENDING NOTE Attending Attestation: Patient independently seen and examined. I have discussed in detail with the resident / student the findings and plan of treatment as documented by the resident / student. I agree with their findings and treatment plan and have edited their documentation. I will continue to follow the patient during this hospital stay. SEYMOUR LOPEZ DO Jun 05, 2020 11:24 WARREN TAM MD Jun 07, 2020 06:59
[2020-06-05 14:00] VITALS: BP 121/67
[2020-06-05] MEDS ORDERED: dexameTHASONE 4 MG/ML 1ML VIAL (J1100 PER 1MG) As Ordered ONE ×2 (16:33→18:34)
[2020-06-05] MEDS ORDERED: LIDOCAINE 1% MDV 20ML VIAL As Ordered ONE (16:33)
[2020-06-05] MEDS ORDERED: BUPIVACAINE HCL 0.5% 10ML VIAL As Ordered ONE (16:33)
[2020-06-05] MEDS ORDERED: LIDOCAINE 2% 100MG/5ML SDV (FOR ANES.) As Ordered ONE (18:10)
[2020-06-05] MEDS ORDERED: propofoL 500 MG/50 ML VIAL As Ordered ONE (18:11)
[2020-06-05] MEDS ORDERED: MIDAZOLAM INJ 2MG/2ML VIAL (J2250 PER 1MG) As Ordered ONE (18:11)
[2020-06-05] MEDS ORDERED: fentaNYL 100 MCG/2 ML INJECTION (J3010) As Ordered ONE (18:11)
[2020-06-05] MEDS ORDERED: ONDANSETRON 4MG/2ML VIAL As Ordered ONE (18:34)
[2020-06-05] MEDS ORDERED: ACETAMINOPHEN 1000MG 100ML IV BTL (OFIRMEV) (J0131 PER 10MG) As Ordered ONE (18:38)
[2020-06-05] MEDS ORDERED: PHENYLephrine 500MCG 5ML (100MCG/ML) SYRINGE As Ordered ONE (18:43)
[2020-06-05] MEDS ORDERED: ePHEDrine SULFATE 25 MG/5 ML(5MG/ML) SYRINGE As Ordered ONE (19:05)
[2020-06-05] MEDS ORDERED: ONDANSETRON 4MG/2ML VIAL IV PRN (19:35)
[2020-06-05] MEDS ORDERED: LR 1,000 ML IV SCH (19:35)
[2020-06-05] MEDS ORDERED: fentaNYL 100 MCG/2 ML INJECTION (J3010) IV PRN (19:35)
[2020-06-05] MEDS ORDERED: oxyCODONE 5MG TAB PO PRN (19:35)
[2020-06-05 21:00] VITALS: BP 119/74
[2020-06-05 22:00] VITALS: BP 124/81
[2020-06-05] MEDS: MONTELUKAST 10 MG TAB PO SCH (22:25)
[2020-06-05] MEDS: ATORVASTATIN 10 MG TAB PO SCH (22:25)
[2020-06-05] MEDS: ASCORBIC ACID 500 MG TAB PO SCH (22:25)
[2020-06-05 23:00] VITALS: BP 127/80
[2020-06-06] VITALS: BP 128/80
[2020-06-06] MEDS: HumaLOG INSULIN (NovoLOG) PER UNIT SC SCH ×4 (01:33→18:48)
[2020-06-06] MEDS: ACETAMINOPHEN TAB 650MG DOSE (2X325MG) PO PRN ×2 (04:29→14:23)
[2020-06-06] MEDS ORDERED: KETOROLAC 30 MG/ML 1ML VIAL IV ONE (04:40)
[2020-06-06 06:00] VITALS: BP 129/80
[2020-06-06] MEDS: HEPARIN SOD (PORCINE) 5000UNITS/ML 1ML VIAL/SYRINGE SQ SCH ×3 (06:42→21:19)
[2020-06-06 06:46] LABS: HEMATOCRIT 34.1 % (36.0-47.0); HEMOGLOBIN 11.5 g/dl (12.0-15.5); MEAN CORPUSCULAR HEMOGLOBIN 29.9 pg (27.0-33.0); MEAN CORPUSCULAR HGB CONC 33.7 g/dl (32.0-36.5); MEAN CORPUSCULAR VOLUME 88.6 fl (80.0-96.0); PLATELET COUNT, AUTOMATED 510 10^3/uL (150-450); RED BLOOD COUNT 3.85 10^6/uL (4.00-5.40); WHITE BLOOD COUNT 9.8 10^3/uL (4.0-10.0)
[2020-06-06] MEDS: VANCOMYCIN HCL 1,000 MG, VIAL MATE ADAPTER 1 EACH in NS 250 ML IV SCH (06:57)
[2020-06-06] MEDS: NS 1,000 ML IV SCH (07:01)
[2020-06-06 07:14] LABS: BLOOD UREA NITROGEN 8 MG/DL (7-18); CALCIUM LEVEL 9.6 MG/DL (8.5-10.1); CARBON DIOXIDE LEVEL 24 MEQ/L (21-32); CHLORIDE LEVEL 107 MEQ/L (98-107); CREATININE FOR GFR 0.54 MG/DL (0.55-1.30); GLOMERULAR FILTRATION RATE > 60.0 (>51); GLUCOSE, FASTING 148 MG/DL (70-100); POTASSIUM SERUM 4.2 MEQ/L (3.5-5.1); SODIUM LEVEL 140 MEQ/L (136-145); VANCOMYCIN LEVEL TROUGH 16.7 UG/ML (10.0-20.0)
--- NOTE | 2020-06-06 08:35 | RO ---
OPERATIVE NOTE DATE OF OPERATION: 06/03/2020 PREOPERATIVE DIAGNOSIS: Right foot, ankle and leg ulceration. POSTOPERATIVE DIAGNOSIS: Right foot, ankle and leg ulceration. PROCEDURE: Right foot, ankle and leg wounds excisional debridement including necrotic skin and subcutaneous tissue. SURGEON: Adarsh Snider DPM EVENT PLANNER: None. ANESTHESIA: General LMA anesthesia with preop injection of 20 mL of 1:1 mix of 1% Lidocaine plain and 0.5% Marcaine plain. ESTIMATED BLOOD LOSS: Minimal. MATERIALS: None. SPECIMEN: Right leg wounds biopsy. COMPLICATIONS: None. CONDITION: Stable. INDICATIONS: Gabby Waddell is a 49-year-old diabetic female who had cellulitis. She had worsening conditions of her wound after discharge, was readmitted for evaluation and debridement of her wound. The patient side and site were identified and marked in preoperative holding area. Consent was reviewed and obtained. Risks, complications and alternatives to the procedure were explained to the patient in detail and all questions were answered. DESCRIPTION OF PROCEDURE: The patient was brought to the operating room and placed on the operating room table in supine position. LMA anesthesia was delivered by the anesthesia team. Preop injection of 20 mL of 1:1 mix of 1% Lidocaine plain and 0.5% Marcaine plain was injected along the wounds. Right lower extremity was prepped and draped in normal sterile fashion. No tourniquet was used during the procedure. Wounds were inspected. There was necrotic tissue along the medial and lateral heel as well as the posterior calf and ankle. Using dermal curet and pulse lavage the nonviable tissue was debrided. Wound penetrated full thickness through the dermis and into the subcutaneous tissue but there was no exposed tendon or other major blood vessels noted during the debridement. Wounds were all debrided down to good bleeding tissue. A small full thickness wedge of tissue was removed using #15 blade for wound biopsy. After wounds were adequately cleansed an Adaptic and gauze dressing was applied. The patient was brought to PACU with vital signs stable, neurovascular status intact. She will be readmitted to the floor and will start wound care dressings tomorrow.
[2020-06-06] MEDS: FEXOFENADINE 60 MG TAB PO SCH (08:38)
[2020-06-06] MEDS: HYDROCHLOROthiazide 6.25MG PER 1/4TAB PO SCH (08:38)
[2020-06-06] MEDS: bisoproloL fumarate 5 MG TAB PO SCH (08:38)
--- NOTE | 2020-06-06 12:41 | IPNPDOC ---
Date Seen The patient was seen on 06/06/20. Progress Note SUBJECTIVE: Patient was seen and examined this morning. She has received debridement of her right foot and leg yesterday. There were no adverse events reported. Patient states that she does have some pain but overall has done well OBJECTIVE PHYSICAL EXAMINATION: VITAL SIGNS: Please see below. GENERAL: Awake, alert, and oriented. Appears in no acute distress. Lying comfortably in bed. HEENT: Atrauamtic, normocephalic. Eyes are nonicteric. Trachea is midline CARDIOVASCULAR: Normal S1, S2 .Regular rate and rhythm. No clicks, rubs or murmurs RESPIRATORY: Clear breath sounds bilaterally. No wheezes, rhonchi, or rales. Symmetric chest expansion ABDOMINAL: Soft, nondistended. Nontender. Normoactive bowel sounds EXTREMITIES: No edema. Right foot deformity 2/2 transmetatarsal amputation. Foot and leg currently bandaged due to s/p debridement. Leg is warm and well perfused NEUROLOGICAL: No focal neurological deficits PSYCHOLOGICAL: Mood and affect appear appropriate LABORATORY DATA, IMAGING STUDIES, MICROBIOLOGY: Please see below. DVT prophylaxis ordered?: Heparin ASSESSMENT AND PLAN: Patient is a 49 year old female with past medical history significant for traumatic injury to her right foot requiring transmetatarsal amputation, diabetes mellitus type 2, and hypertension who was sent from Dr. Sams office to [facility] for debridement of right leg necrotic tissue with Dr. Nicole. There was concern that vascular surgery would be needed. After discussion patient was taken by Dr. Snider of Podiatry for debridement PROBLEMS: 1. Right leg and foot cellulitis with tissue necrosis -Patient is s/p debridement of her right leg and foot. She had developed a cellulitis previously which resulted in necrosis. For healing purposes the necrotic tissue had to be removed. She has had debridement yesterday demonstrating healthy tissue. -She is currently on Antibiotics. She will not need antibiotics on discharge as she has received ample dose and duration -Podiatry consulted. Recommendations and assistance appreciated -ID consulted. Recommendations and assistance appreciated -[facility] consulted 2. Diabetes Mellitus Type 2 -Sliding scale coverage ACHS 3. HTN -Continue Lisinopril, Zebeta, and hydrochlorothiazide 4. HLD -Continue atorvastatin 5. GERD -Continue Prilosec 6. Seasonal Allergies -Continue Jazzy and Singulair 7. DVT prophylaxis -Heparin DISPOSITION: Wound care per Dr. Masters today and then D/C tomorrow VS, I&O, 24H, Fishbone Vital Signs/I&O Vital Signs Date Time Temp Pulse Resp B/P (MAP) Pulse Ox O2 Delivery O2 Flow Rate FiO2 06/06/20 08:38 61 129/80 06/06/20 06:00 97.5 18 96 Room Air 06/05/20 19:25 10 I&O- Last 24 Hours up to 6 AM 06/06/20 06:00 Intake Total 2190 ml Output Total 0 ml Balance 2190 ml Laboratory Data 24H LABS Laboratory Tests 2 06/05/20 13:58: Vancomycin Level Trough 19.0 06/05/20 16:29: Bedside Glucose (Misc Panel) 112H 06/06/20 01:04: Bedside Glucose (Misc Panel) 217H 06/06/20 05:46: Bedside Glucose (Misc Panel) 157H 06/06/20 06:23: Nucleated Red Blood Cells % (auto) 0.0, Anion Gap 9, Glomerular Filtration Rate > 60.0, Calcium Level 9.6, Vancomycin Level Trough 16.7 06/06/20 11:54: Bedside Glucose (Misc Panel) 127H CBC/BMP Laboratory Tests 06/06/20 06:23 Microbiology Microbiology 06/03/20 Gram Stain - Final, Complete 06/03/20 Wound Culture - Final, Complete GME ATTESTATION GME ATTESTATION My faculty preceptor for this patient encounter was physically present during the encounter and was fully available. All aspects of the patient interview, examination, medical decision making process, and medical care plan development were reviewed and approved by the faculty preceptor. The faculty preceptor is aware and concurs with the plan as stated in the body of this note and will attest to such by his/her cosignature. ATTENDING NOTE Attending Attestation: Patient independently seen and examined. I have discussed in detail with the resident / student the findings and plan of treatment as documented by the resident / student. I agree with their findings and treatment plan and have edited their documentation. I will continue to follow the patient during this hospital stay. SEYMOUR LOPEZ DO Jun 06, 2020 12:41 WARREN TAM MD Jun 07, 2020 07:27
[2020-06-06 15:28] VITALS: BP 111/65
[2020-06-06] MEDS ORDERED: DEXTROSE 50% 50 ML SYRINGE IV PRN (17:00)
[2020-06-06] MEDS ORDERED: GLUCAGON INJ 1MG VIAL SC PRN (17:00)
[2020-06-06] MEDS ORDERED: GLUCOSE 4GM CHEW TABLET PO PRN (17:00)
[2020-06-06] MEDS: traMADol 50 MG TAB PO PRN (19:24)
[2020-06-06] MEDS ORDERED: HumaLOG INSULIN (NovoLOG) PER UNIT SC SCH (21:00)
[2020-06-06] MEDS: MONTELUKAST 10 MG TAB PO SCH (21:19)
[2020-06-06] MEDS: ASCORBIC ACID 500 MG TAB PO SCH (21:19)
[2020-06-06] MEDS: ATORVASTATIN 10 MG TAB PO SCH (21:19)
--- NOTE | 2020-06-06 21:52 | IPNPDOC ---
Text Note Date of Service The patient was seen on 06/06/20. NOTE INFECTIOUS DISEASE PROGRESS NOTE SUBJECTIVE: Gabby is seen at the bedside, and is feeling better today. She was taken to the OR last night for surgical debridement of her leg. She is currently feeling minimal pain. Bone biopsy from the procedure is pending pathology. She is being discharged tomorrow. She remains afebrile and denies shortness of breath, chest pain, abdominal pain, nausea, vomiting, headache, dizziness, fevers or chills. OBJECTIVE: VITAL SIGNS: See below GENERAL: Patient is a pleasant woman seen lying in bed, with her R food propped on a pillow, and is not in any distress. HEENT: Normocephalic, atraumatic. CARDIOVASCULAR: Regular rate and rhythm. Normal S1, S2 with murmurs, rales or rubs appreciated. RESPIRATORY: Lung samaniego are clear to auscultation bilaterally, with no wheezes, rales or rhonchi appreciated. Chest rise is symmetric chest on inhalation with no accessory muscle use. She is breathing room air. GASTROINTESTINAL: Abdomen is soft, mildly obese, nontender, and nondistended. Hypoactive bowel sounds throughout with no appreciated rigidity. EXTREMITIES: The right leg was left bandaged after surgical procedure and not examined. There is no swelling or erythema of the bed above the bandage. The left leg has no edema. NEUROLOGIC: She is alert and oriented times three. No focal deficits appreciated. PSYCHIATRIC: Normal mood and affect LABORATORY DATA: CBC - WBC 9.8, hemoglobin 11.5, hematocrit 34.1, platelet count 510, last ESR of 66 on 06/05. BMP - Sodium 140, potassium 4.2, chloride 107, bicarb 24, BUN 8, creatinine, 0.54, glucose 148, calcium 9.2, last C-reactive protein 1.29 on 06/04. Vancomycin trough this today was 16.7. The gram stain from wound culture showed no cells or organisms, and the wound culture is negative for growth. IMPRESSION: Necrotizing cellulitis in diabetic patient. She remains afebrile and her white blood count has remained within normal limits since 06/04. She was seen by Dr. Snider from podiatry yesterday evening for an uncomplicated surgical debridement, and culture shows no infection. MRI studies from 06/03 showed no signs of osteomyelitis, necrotizing fasciitis, or abscess formation. Vancomycin was discontinued today, as wound culture fails to show any infection and the patient is showing no clinical signs of infection. She has been treated for more than 10 days of antibiotics PLAN: Gabby is currently scheduled to be discharged home tomorrow. From an infections disease standpoint, wound culture fails to show any infection, and the patient is not showing clinical signs of infection. She had been on antibiotics for 13 days, and does not require antibiotics on discharge. She will be seen by Dr. Masters next week as an outpatient for vascular followup. VS,Fishbone, I+O VS, Fishbone, I+O Laboratory Tests 06/06/20 06:23 Vital Signs Date Time Temp Pulse Resp B/P (MAP) Pulse Ox O2 Delivery O2 Flow Rate FiO2 06/06/20 19:24 18 06/06/20 15:28 98.3 63 111/65 (80) 94 Room Air 06/05/20 19:25 10 I&O- Last 24 Hours up to 6 AM 06/06/20 06:00 Intake Total 2190 ml Output Total 0 ml Balance 2190 ml GME ATTESTATION GME ATTESTATION My faculty preceptor for this patient encounter was physically present during the encounter and was fully available. All aspects of the patient interview, examination, medical decision making process, and medical care plan development were reviewed and approved by the faculty preceptor. The faculty preceptor is aware and concurs with the plan as stated in the body of this note and will attest to such by his/her cosignature. PHILLIP MADDOX Jun 06, 2020 21:52 Usama Florez MD Jun 07, 2020 00:24
[2020-06-06 22:00] VITALS: BP 125/79
[2020-06-07] MEDS: HEPARIN SOD (PORCINE) 5000UNITS/ML 1ML VIAL/SYRINGE SQ SCH ×2 (05:15→14:00)
[2020-06-07 06:00] VITALS: BP 123/75
[2020-06-07 06:40] LABS: HEMATOCRIT 32.1 % (36.0-47.0); HEMOGLOBIN 10.6 g/dl (12.0-15.5); MEAN CORPUSCULAR HEMOGLOBIN 29.9 pg (27.0-33.0); MEAN CORPUSCULAR VOLUME 90.4 fl (80.0-96.0); PLATELET COUNT, AUTOMATED 446 10^3/uL (150-450); RED BLOOD COUNT 3.55 10^6/uL (4.00-5.40); WHITE BLOOD COUNT 10.9 10^3/uL (4.0-10.0)
[2020-06-07 07:01] LABS: BLOOD UREA NITROGEN 10 MG/DL (7-18); CALCIUM LEVEL 8.5 MG/DL (8.5-10.1); CARBON DIOXIDE LEVEL 29 MEQ/L (21-32); CHLORIDE LEVEL 108 MEQ/L (98-107); CREATININE FOR GFR 0.66 MG/DL (0.55-1.30); GLOMERULAR FILTRATION RATE > 60.0 (>51); GLUCOSE, FASTING 173 MG/DL (70-100); POTASSIUM SERUM 3.7 MEQ/L (3.5-5.1); SODIUM LEVEL 142 MEQ/L (136-145)
[2020-06-07] MEDS: HumaLOG INSULIN (NovoLOG) PER UNIT SC SCH ×2 (08:18→12:00)
[2020-06-07] MEDS: HYDROCHLOROthiazide 6.25MG PER 1/4TAB PO SCH (08:18)
[2020-06-07] MEDS: FEXOFENADINE 60 MG TAB PO SCH (08:19)
[2020-06-07] MEDS: traMADol 50 MG TAB PO PRN (08:19)
[2020-06-07 08:20] VITALS: BP 123/75
[2020-06-07] MEDS: bisoproloL fumarate 5 MG TAB PO SCH (08:20)
[2020-06-07] MEDS ORDERED: DIMETHICONE 2% OINTMENT(VANICREAM) 70GM TUBE TOP SCH (09:00)
[2020-06-07] MEDS ORDERED: TRAM50TA2 PO (11:36)
--- NOTE | 2020-06-07 11:49 | CR ---
CONSULTATION DATE: 06/07/2020 Telemedicine consultation. REQUESTED BY: Dr. Robinson Salazar. REASON FOR CONSULTATION: Right lower extremity and right foot wounds. HISTORY OF PRESENT ILLNESS: A 49-year-old diabetic female, recent hemoglobin A1C 7.3, had been hospitalized for a cellulitis involving the right lower extremity pretibial area, extending down to the dorsal foot and extending circumferentially to the lateral and medial malleolus regions. This produced bullous lesions which may have been secondary to traumatic footwear. The bullous lesions which involve the patient's ankle and dorsal aspect of her foot most probably were colonized from the cellulitis involving her right lower extremity pretibial area. . Patient does have sensation involving her feet and lower extremity, although this is somewhat decreased. Patient had been hospitalized and treated with intravenous (IV) antibiotics and her initial white count, which was 14.3, returned to normal and her original low grade temperature also returned to normal. I requested a podiatry consultation to unroof the bolus lesions, which was performed. Foam dressings were applied and then the patient was discharged per her medical physician. Past medical history significant for diabetes and a traumatic injury as a 1-year-old requiring a right transmetatarsal amputation. I saw the patient in our clinic within a week after her discharge and felt that her general condition and her wounds had deteriorated, along with increased edema involving the right lower extremity. There was also increased inflammation associated with pain and tenderness of her right leg. For that reason, I requested that the patient be readmitted to the hospital. She was. She was seen by podiatry, infectious disease, medicine and plastic surgery. The wounds were too extensive to be debrided in the clinic and the patient was in moderate pain and therefore, an OR debridement, I felt, was indicated. Dr. Snider took the patient to the operating room and under anesthesia, debrided the foot and leg. This was supplemented by a post debridement pulse-lavage. When seen today, postoperative, the patient was not experiencing any significant pain. Right lower extremity edema had resolved. Minimal drainage noted from wounds which showed some superficial dried eschar. She was afebrile with a normal white count and minimal erythema. At this point, speaking with Dr. Florez, she felt there was no further indication for IV antibiotics, which I would agree. Dressings have now been changed at my recommendation to DuoDERM, which is a hydrocolloid, as these wounds appear desiccated and there is minimal drainage. A TubiGrip support stocking is preferable to an Admeon bandage, which is a long stretch and does not compress adequately. It should be noted that an arterial ultrasound had been obtained, which showed no evidence of occlusive disease and a CT scan was performed of the leg which showed no necrosis of deep muscle, as or localized abscess formation. Patient will be followed up in our clinic in three days. From a wound care standpoint, patient can be discharged today no indication for oral antibiotic therapy. Summary of events: Originally admitted to [facility] on 05/24/2020 discharged on 05/29/2020 my original telemedicine consult 05/28/2020. Patient was seen at the wound care center outpatient evaluation on 06/03/2020. It my assistance patient was readmitted to [facility] on 06/03/2020. She underwent treatment and was discharged on 06/07/2020 telemedicine performed on 06/07/2020 note at the time of dictation discharge is potentially scheduled and pending. WOLF
--- NOTE | 2020-06-07 13:14 | DS.PDOC ---
Discharge Summary General Date of Admission Jun 03, 2020 at 12:47 Date of Discharge 06/07/20 Primary Care Physician: LUCERO GLASER NP Attending Physician: WARREN TAM MD Specialist/Consultants Involve: Usama Florez MD Specialist/Consultants Involve Dr. Snider; Podiatric Medicine Dr. Masters; Advanced Wound Care Dr. Nicole; Plastic Surgery Discharge Summary PROCEDURES PERFORMED DURING STAY: Right foot, ankle, and leg wound excisional debridement including necrotic skin and subcutaneous. ADMITTING DIAGNOSES: 1. Right leg necrotic wounds 2/2 recent right leg cellulitis 2. Leukocytosis 3. Diabetes Mellitus type 2 4. HTN 5. HLD 6. GERD DISCHARGE DIAGNOSES: 1. Right leg necrotic wounds 2/2 recent right leg cellulitis 2. Diabetes Mellitus type 2 3. HTN 4. HLD 5. GERD COMPLICATIONS/CHIEF COMPLAINT: Cellulitis Diabetic Foot Infection. 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 Patient was recently seen at [facility] on May 24 through May 29 for a right leg cellulitis. At this time. Patient was treated with antibiotics. She did have bedside debridement by Dr. Snider of Podiatry at the time. She was discharged and followed up with Dr. Vega of advanced wound care in the office. Since her discharge, the patient has been followed by Dr. Masters for wound care. He noted in the office that the patient had increasing necrotic areas. It was felt that she would need further debridement of the necrotic tissue to allow proper wound healing. The extent of the necrotic tissue was too extensive to be completed in the office and the patient was sent to the ER for admission to [facility] for debridement by Dr. Nicole of plastic surgery. HOSPITAL COURSE: On admission to [facility] the patient was started on IV antibiotics empirically. She was then seen by Dr. Nicole of Plastic Surgery who was concerned for vascular issues in addition to concern that debridement would be too close to vascular structure. She had recommended Vascular Surgery evaluation before she would consider any debridement. On review of the patients previous admission, she did receive an arterial duplex US which demonstrated adequate blood flow. An MRI was ordered to demonstrate the extent of tissue necrosis. MRI did not demonstrate any osteomyelitis, abscess, or necrotizing fascitis. Dr. Snider of Podiatry had evaluated the patient and felt the debridement was appropriate and unlikely to be close to any vascular structures. The patient was taken for debridement by Dr. Snider. She had tolerated the procedure well. She was followed by Infectious Disease while inpatient. All providers were in agreement that on discharge the patient would no longer need antibiotics as she had received ample duration of therapy. She was seen for advanced wound care by Dr. Masters and recommended to follow-up with him in 3 days. Wound care instructions were per DISCHARGE MEDICATIONS: Please see below. ALLERGIES: Please see below. PHYSICAL EXAMINATION ON DISCHARGE: VITAL SIGNS: Please see below. GENERAL: Awake, alert, and oriented. Appears in no acute distress. Lying comfortably in bed. HEENT: Atrauamtic, normocephalic. Eyes are nonicteric. Trachea is midline CARDIOVASCULAR: Normal S1, S2 .Regular rate and rhythm. No clicks, rubs or murmurs RESPIRATORY: Clear breath sounds bilaterally. No wheezes, rhonchi, or rales. Symmetric chest expansion ABDOMINAL: Soft, nondistended. Nontender. Normoactive bowel sounds EXTREMITIES: No edema. Right foot deformity 2/2 transmetatarsal amputation. Foot and leg currently bandaged due to s/p debridement. Leg is warm and well perfused NEUROLOGICAL: No focal neurological deficits PSYCHOLOGICAL: Mood and affect appear appropriate LABORATORY DATA: Please see below. IMAGING: INDICATION: pre-op COMPARISON: 08/01/2010 TECHNIQUE: Portable AP view of the chest FINDINGS: The mediastinum and cardiac silhouette are stable and within normal limits for portable technique. The lung samaniego are clear without acute consolidation, effusion, or pneumothorax. Skeletal structures are intact. IMPRESSION: No acute cardiopulmonary process appreciated. <Electronically signed by Jonathon Tabares > 06/03/20 PROCEDURE INFORMATION: Exam: MR Right Lower Extremity Without and With Contrast, Tibia Fibula Exam date and time: 06/03/2020 9:47 PM Age: 49 years old Clinical indication: Condition or disease; Prior surgery; Surgery date: 6+ months; Patient HX: Partial foot amputation, HX cellulitis, current pain and severe cellulitis and blisters from heel to mid tib/fib TECHNIQUE: Imaging protocol: MR of the Right lower extremity without and with contrast. Exam focused on the tibia and fibula. Contrast material: PROHANCE; Contrast volume: 15 ml; Contrast route: INTRAVENOUS (IV); COMPARISON: US UNI LOW EXTREM ARTERIAL LIMIT 05/27/2020 11:14 AM FINDINGS: Bones/joints: The right tibia and fibula are intact and demonstrate normal bone marrow signal. There are no confluent areas of decreased T1 signal, increased fluid sensitive signal, enhancement in the bones, bony destructive changes, or periostitis to suggest osteomyelitis. Muscles: There is mildly increased fluid sensitive signal in the right medial and lateral head of gastrocnemius muscles, which may represent myositis, grade 1 strains, or denervation edema. There is severe fatty atrophy of the muscles of the right foot. Soft tissues: There is soft tissue swelling and edema in the subcutaneous tissues of the right calf and right ankle, which is compatible with cellulitis. No drainable rim enhancing soft tissue fluid collection is noted to suggest an abscess. There is no fluid in the intermuscular fascial planes, thickening or enhancement of the deep fascial planes, or obvious gas in the soft tissues to suggest necrotizing fasciitis. Vasculature: No deep vein thrombosis is noted in the right knee or right calf. IMPRESSION: 1. No MR evidence for osteomyelitis, an abscess, or necrotizing fasciitis in the right calf. 2. Cellulitis in the right calf. 3. Mildly increased fluid sensitive signal in the right medial and lateral head of gastrocnemius muscles, which may represent myositis, grade 1 strains, or denervation edema. 4. No deep vein thrombosis in the right knee or right calf. Electronically signed by: Emerson Mayfield On 06/03/2020 22:36:41 PM PROCEDURE INFORMATION: Exam: MR Right Lower Extremity Joint Without and With Contrast; Ankle Exam date and time: 06/03/2020 9:47 PM Age: 49 years old Clinical indication: Condition or disease; Prior surgery; Surgery date: 6+ months; Patient HX: Partial foot amputation, HX cellulitis, current pain and severe cellulitis and blisters from heel to mid tib/fib TECHNIQUE: Imaging protocol: MR of the Right lower extremity without and with contrast. Exam focused on the ankle. Contrast material: PROHANCE; Contrast volume: 15 ml; Contrast route: INTRAVENOUS (IV); COMPARISON: US UNI LOW EXTREM ARTERIAL LIMIT 05/27/2020 11:14 AM FINDINGS: Bones and cartilage: Postoperative changes are noted from a right transmetatarsal amputation. There are no confluent areas of decreased T1 signal, increased fluid sensitive signal, enhancement in the bones, bony destructive changes, or periostitis to suggest osteomyelitis. There is no fracture, dislocation, or osteochondral lesion. Joint spaces: No joint effusion. LIGAMENTS: Distal tibiofibular syndesmosis: The distal tibiofibular syndesmosis is intact. Anterior talofibular ligament: The anterior talofibular ligament is intact. Posterior talofibular ligament: The posterior talofibular ligament is intact. Calcaneofibular ligament: The calcaneofibular ligament is intact. Deltoid ligament complex: The deltoid ligament complex is intact. Spring ligament complex: Intact. TENDONS: Flexor tendons of foot: There are amputation defects involving the flexor tendons. No acute tear. Tibialis posterior tendon: The tibialis posterior tendon is intact. No tendinosis. No tenosynovitis. Peroneal tendons: The peroneal tendons are intact. No tendinosis. No tenosynovitis. Extensor tendons of foot: There are amputation defects involving the extensor tendons. No acute tear. Tibialis anterior tendon: The tibialis anterior tendon is intact. No tendinosis. No tenosynovitis. Achilles tendon: The Achilles tendon is intact. No tendinosis. No peritendinitis. Tarsal canal (Sinus tarsi): The roots of the inferior extensor retinaculum, cervical ligament, and interosseous talocalcaneal ligament are intact. No replacement of the normal fatty signal in the sinus tarsi is noted to suggest a sinus tarsi syndrome. Tarsal tunnel: The tarsal tunnel is unremarkable. Muscles: There is severe fatty atrophy of the muscles of the right foot. Soft tissues: There is a soft tissue ulcer or wound at the site of the right transmetatarsal amputation defect. No drainable rim enhancing soft tissue fluid collection is noted to suggest an abscess. No soft tissue gas is identified. There is soft tissue swelling and edema in the subcutaneous tissues along the anterior, medial, lateral, and posterior aspect of the right hindfoot, which is compatible with cellulitis. Plantar fascia: The plantar fascia is intact. No evidence for plantar fasciitis or plantar fibromatosis. There is a tiny right plantar calcaneal spur. IMPRESSION: 1. No MR evidence for osteomyelitis or an abscess in the right ankle. 2. Soft tissue ulcer or wound at the site of the right transmetatarsal amputation defect. 3. Evidence for cellulitis in the right ankle. Electronically signed by: Emerson Mayfield On 06/03/2020 22:36:32 PM DD: EMERSON MAYFIELD MD 06/03/202146 DT: SERGE 06/03/202235 DS: UMANG 06/03/202235 PROGNOSIS: Fair ACTIVITY: [As tolerated]. DIET: As tolerated DISCHARGE PLAN: Patient is to be discharged home. She is to follow wound care instructions per Dr. Masters. She is to follow-up with Dr. Masters in 3 days. She is to follow-up with her PCP in 7-10 days DISCHARGE INSTRUCTIONS: 1. Follow-up with Dr. Masters in 3 days 2. Follow-up with PCP in 7-10 days 3. Wound Care instructions per Dr. Masters DISCHARGE CONDITION: [Stable]. TIME SPENT ON DISCHARGE: Greater than 35 minutes. Vital Signs/I&Os Vital Signs Date Time Temp Pulse Resp B/P (MAP) Pulse Ox O2 Delivery O2 Flow Rate FiO2 06/07/20 08:49 18 06/07/20 08:20 73 123/75 06/07/20 06:00 97.9 96 Room Air 06/05/20 19:25 10 I&O- Last 24 Hours up to 6 AM 06/07/20 06:00 Intake Total 1670 ml Balance 1670 ml Laboratory Data Labs 24H Laboratory Tests 2 06/06/20 17:00: Bedside Glucose (Misc Panel) 192H 06/06/20 20:42: Bedside Glucose (Misc Panel) 202H 06/07/20 06:00: Nucleated Red Blood Cells % (auto) 0.0, Anion Gap 5L, Glomerular Filtration Rate > 60.0, Calcium Level 8.5 06/07/20 11:34: Bedside Glucose (Misc Panel) 131H CBC/BMP Laboratory Tests 06/07/20 06:00 FSBS Laboratory Tests Test 06/06/20 17:00 06/06/20 20:42 06/07/20 11:34 Range/Units Bedside Glucose (Misc Panel) 192 202 131 70-105 MG/DL Microbiology Microbiology 06/03/20 Gram Stain - Final, Complete 06/03/20 Wound Culture - Final, Complete Discharge Medications Scheduled Ascorbic Acid (Vitamin C) 500 Mg Tablet, 500 MG PO QHS, (Reported) Atorvastatin Calcium (Atorvastatin Calcium) 10 Mg Tablet, 10 MG PO QHS, (Reported) Bisoprolol/Hydrochlorothiazide (Bisoprolol-Hctz 5-6.25 mg Tab) 1 Each Tablet, 1 TAB PO DAILY, (Reported) Calcium Carbonate/Vitamin D3 (Calcium 600-Vit D3 800 Tablet) 1 Each Tablet, 1 TAB PO DAILY, (Reported) Fexofenadine HCl (Jazzy Allergy) 180 Mg Tablet, 180 MG PO DAILY, (Reported) Lisinopril (Lisinopril) 10 Mg Tablet, 10 MG PO DAILY, (Reported) Metformin HCl (Metformin HCl ER) 500 Mg Tab.er.24h, 2,000 MG PO DAILY, (Reported) TAKES AT LUNCH Montelukast Sodium (Montelukast Sodium) 10 Mg Tablet, 10 MG PO QHS, (Reported) Triamcinolone Acetonide (Nasacort) 10.8 Ml [place], 1 SPRAY NARES DAILY, (Reported) Scheduled PRN Ibuprofen (Ibuprofen) 200 Mg Tablet, 800 MG PO Q6H PRN for PAIN, (Reported) Omeprazole (Omeprazole) 20 Mg Capsule.dr, 20 MG PO QHS PRN for HEARTBURN, (Reported) Tramadol HCl (Tramadol HCl) 50 Mg Tablet, 50 MG PO Q8HP PRN for MODERATE PAIN (PS 5-7) Allergies Coded Allergies: pineapple (Verified Allergy, Severe, throat swelling, 05/24/20) Watermelon (Verified Allergy, Unknown, LIP SWELLING, 06/03/20) tuberculin,PPD,multi-puncture (Verified Adverse Reaction, Mild, redness at site, 05/24/20) GME ATTESTATION GME ATTESTATION My faculty preceptor for this patient encounter was physically present during the encounter and was fully available. All aspects of the patient interview, examination, medical decision making process, and medical care plan development were reviewed and approved by the faculty preceptor. The faculty preceptor is aware and concurs with the plan as stated in the body of this note and will attest to such by his/her cosignature. ATTENDING NOTE Attending Attestation: Patient independently seen and examined. I have discussed in detail with the resident / student the findings and plan of treatment as documented by the re sident / student. I agree with their findings and treatment plan and have edited their documentation. I will continue to follow the patient during this hospital stay. SEYMOUR LOPEZ DO Jun 07, 2020 13:14 WARREN TAM MD Jun 09, 2020 11:46
== END 2020-06-07 14:45 | disposition home or self-care (01) | DRG 197 ==
LOC: M ED 09:44 → M ED INP 12:47 → ENRESERV 13:36 → M MS5PR 15:20
PROVIDERS: ADMIT Internal Medicine; ATTEND Internal Medicine
PROC: 0JBQ0ZZ Excision of Right Foot Subcutaneous Tissue and Fascia, Open Approach (ICD-10-PCS; principal; 2020-06-03)
PROC: 0JBN0ZZ Excision of Right Lower Leg Subcutaneous Tissue and Fascia, Open Approach (ICD-10-PCS; 2020-06-03)
DX: I96 Gangrene, not elsewhere classified (principal); I10 Essential (primary) hypertension; L03.115 Cellulitis of right lower limb; E11.9 Type 2 diabetes mellitus without complications; D72.829 Elevated white blood cell count, unspecified; J30.2 Other seasonal allergic rhinitis; K21.9 Gastro-esophageal reflux disease without esophagitis; Z89.421 Acquired absence of other right toe(s); Z79.84 Long term (current) use of oral hypoglycemic drugs; Z79.899 Other long term (current) drug therapy; Z88.7 Allergy status to serum and vaccine; Z91.018 Allergy to other foods; Z87.891 Personal history of nicotine dependence; Z20.822 Contact with and (suspected) exposure to COVID-19

== ENCOUNTER 2020-07-14 08:01 | Inpatient (IN) | payer BC ==
[~2020-07-14] VITALS: Ht 162.6 cm; Wt 71.1 kg
[~2020-07-14 08:01] MED LIST changes: +AUGM875T28 PO; +IBUP-1720 PO; +TRAM50TA2 PO
[2020-07-14] MEDS ORDERED: NS 1,000 ML IV ONE (08:30)
[2020-07-14 08:48] LABS: BASO # 0.1 10^3/uL (0.0-0.2); BASO % 0.5 % (0.0-1.0); HEMATOCRIT 38.4 % (36.0-47.0); HEMOGLOBIN 13.5 g/dl (12.0-15.5); LYMPH # 1.1 10^3/uL (1.5-5.0); LYMPH % 10.1 % (24.0-44.0); MEAN CORPUSCULAR HEMOGLOBIN 29.3 pg (27.0-33.0); MEAN CORPUSCULAR HGB CONC 35.2 g/dl (32.0-36.5); MEAN CORPUSCULAR VOLUME 83.5 fl (80.0-96.0); MONO # 0.5 10^3/uL (0.0-0.8); MONO % 4.3 % (2.0-8.0); NEUTROPHILS # 9.6 10^3/uL (1.5-8.5); NEUTROPHILS % 84.7 % (36.0-66.0); PLATELET COUNT, AUTOMATED 243 10^3/uL (150-450); WHITE BLOOD COUNT 11.3 10^3/uL (4.0-10.0)
[2020-07-14] MEDS ORDERED: VANCOMYCIN HCL 1,500 MG in NS 250 ML IV ONE (09:10)
[2020-07-14 09:25] LABS: RSV AMPLIFICATION NEGATIVE (NEGATIVE)
[2020-07-14 09:29] LABS: BLOOD UREA NITROGEN 14 MG/DL (7-18); CARBON DIOXIDE LEVEL 24 MEQ/L (21-32); CHLORIDE LEVEL 99 MEQ/L (98-107); GLOMERULAR FILTRATION RATE > 60.0 (>51); GLUCOSE, FASTING 265 MG/DL (70-100); POTASSIUM SERUM 3.2 MEQ/L (3.5-5.1); SODIUM LEVEL 131 MEQ/L (136-145)
[2020-07-14 09:33] LABS: ERYTHROCYTE SEDIMENTATION RATE 116 mm/hr (0-30)
[2020-07-14] MEDS ORDERED: POTASSIUM CHLORIDE 10 MEQ SR TABLET PO ONE (09:40)
[2020-07-14] MEDS ORDERED: VANCOMYCIN HCL 750 MG, VIAL MATE ADAPTER 1 EACH in NS 250 ML IV ONE ×2 (10:00→11:00)
--- NOTE | 2020-07-14 10:20 | HPEPDOC ---
[facility] Medical History & Physical Date of Admission July 14, 2020 Date of Service: July 14, 2020 Attending Physician: Zenia Wharton MD History and Physical CHIEF COMPLAINT: RLE swelling, pain, redness HISTORY OF PRESENT ILLNESS: Patient is a 50-year-old female with past medical history of right foot, leg and ankle ulceration status post debridement 06/03/2020, diabetes mellitus, HTN, GERD who presented to [facility] emergency room with the chief complaint of worsening right lower extremity pain, swelling and warmth. The patient states her abnormal symptoms began 07/12/2020 with increased nausea, lethargy, headache, abdominal discomfort with several episodes of vomiting. The patient denies any foot pain or increased redness of the right lower extremity during this time. Over the next 2436 hours her abdominal symptoms improved; however today on 07/14/2020 she woke up with increased right foot pain. She normally wears compression stockings in her right lower extremity and when she took off her compression stocking she noticed increased redness, warmth, pain with touch, erythema extending up the anterior/medial and posterior portion of her right lower extremity-not extending past the knee. The patient has a comp located history of her right lower extremity including trauma to the right lower extremity secondary to Lyme or accident she was a child. She's also had cellulitis and infection in the right lower extremity with the recent debridement of ulceration in the exact area of the symptoms on 06/03/2020 during an hospital admission by Dr. Snider, podiatry. She is a type II diabetic and is compliant with her home medications, recent HbA1c on 05/24/2020 was 7.3. Due to symptoms above the patient came to the ER today to be further assessed. In the emergency room vital signs were stable. WBC elevated at 11.3. Inflammatory markers were high with ESR 116, CRP 35.6, lactic acid 2.6. Other abnormal labs include sodium 131, potassium 3.2, blood sugar 265. The patient was given KCl 40 mEq 1. The patient was noted to have the right lower extremity cellulitis by ER provider, was given 1 dose of IV vancomycin. Due to her complicated history and worsening symptoms of the right lower extremity with a recent hospitalization, the patient was admitted under hospitalist service to be evaluated and treated for right lower extremity cellulitis as inpatient. REVIEW OF SYSTEMS: Neg except mentioned above PMH: Hx of Right foot, leg and ankle ulceration s/p debridement 06/03/20 Diabetes mellitus type 2 Hypertension. History of traumatic injury to the right lower extremity, lawnmower accident. GERD Seasonal allergies PAST SURGICAL HISTORY Right foot, ankle and leg excisional debridement 06/03/20 (Dr. Snider) Right transmetatarsal irritation Skin grafting section Sinus Surgery Partial Hysterectomy FAMILY HISTORY: Patient's father is alive. She is unsure of his medical history. Her mother is alive and diagnosed hypertension. She has 2 brothers, both with hypertension, one with testicular cancer. SOCIAL HISTORY: Patient is currently and lives at home with her . She admits to occasional alcohol use. States she maybe drinks 1-2 beers/wine a week. She denies any current smoking. She states that she has a history of smoking and quit more than 15 years ago. At that time she was smoking approximately 1 pack per day. She is able to complete her ADLs independently. Her primary care provider is Shari Michael aircraft air conditioning mechanic- Dr. Snider, was previously following with Dr. Masters but does not any longer. Full Code. ALLERGIES: Please see below. HOME MEDICATIONS: Please see below. PHYSICAL EXAMINATION: VS: please see below, stable CONSTITUTIONAL: No acute distress, resting comfortably, AAO x 3 EYES: PERRLA, EOM intact HENT, MOUTH: Normocephalic, atraumatic, moist mucous membranes, NECK: SUPPLE, no JVD, no lymphadenopathy, no carotid bruit CV: Regular rate and rhythm, S1S2 normal, no murmurs/rubs/gallops RESPIRATORY: Clear to auscultation bilaterally, no rales/rhonchi/wheezes GI: BS positive in 4 quadrants, soft, nontender, nondistended, no rebound or guarding, no organomegaly : Deferred MUSCULOSKELETAL: Normal ROM. No cyanosis, clubbing, swelling, joint deformity, mild nonpitting RLE edema- see below for skin changes INTEGUMENTARY: RLE swelling, redness, warmth over right foot, medial and anterior serrano. Scattered areas of cellulitis also seen on lateral side of RLE below knee. Redness and swelling does not extend past the knee. NEUROLOGIC: Cranial Nerves II-XII are intact, no focal deficits PSYCHIATRIC: Mood and affect are normal LABORATORY DATA: Please see below IMAGING: None ASSESSMENT: 50-year-old female with past medical history of right foot, leg and ankle ulceration status post debridement 06/03/2020, diabetes mellitus, HTN, GERD admitted under hospitalist service to be evaluated and treated for right lower extremity cellulitis as inpatient. PLAN: RLE cellulitis, recurrent -WBC 11.4, LA elevated, VS stable -ESR, CRP elevated -Recent debridement/treatment of cellulitis on 06/03/[address] Snider -Previously following with Dr. Masters but was told she did not need to follow any longer (within last 1.5 months) -Started on Vancomycin, pain control -F/u podiatry recommendations, daily labs and cultures Hyponatremia likely acute and 2/2 dehydration, recent GI bug -Na 131 -Started on IVFs -Daily labs DM type II -BS 265 and likely more increased than normal 2/2 to infection -ISS, FS AC/HS, CC diet, hypoglycemic protocol HTN -Stable -C/w home meds HLD -statin GERD -PPI DVT px -Lovenox DISPOSITION: Admitted as acute inpatient. Podiatry consulted. Will need PT/OT. Discharge home when medically improved. Vital Signs Vital Signs Date Time Temp Pulse Resp B/P (MAP) Pulse Ox O2 Delivery O2 Flow Rate FiO2 07/14/20 09:31 92 16 124/83 (97) 98 Room Air 07/14/20 08:11 97.0 Laboratory Data Labs 24H Laboratory Tests 2 07/14/20 08:36: Immature Granulocyte % (Auto) 0.4, Neutrophils (%) (Auto) 84.7H, Lymphocytes (%) (Auto) 10.1L, Monocytes (%) (Auto) 4.3, Eosinophils (%) (Auto) 0.0, Basophils (%) (Auto) 0.5, Neutrophils # (Auto) 9.6H, Lymphocytes # (Auto) 1.1L, Monocytes # (Auto) 0.5, Eosinophils # (Auto) 0.0, Basophils # (Auto) 0.1, Nucleated Red Blood Cells % (auto) 0.0, Erythrocyte Sedimentation Rate 116H, Anion Gap 8, Glomerular Filtration Rate > 60.0, Lactic Acid Level 2.6*H, Calcium Level 9.0, C-Reactive Protein, Quantitative 35.60H 07/14/20 08:43: Coronavirus (COVID-19)(PCR) NEGATIVE, Influenza Type A (RT-PCR) NEGATIVE, Influenza Type B (RT-PCR) NEGATIVE, Respiratory Syncytial Virus (PCR) NEGATIVE CBC/BMP Laboratory Tests 07/14/20 08:36 Microbiology Microbiology 07/14/20 Blood Culture, Received Pending 07/14/20 Blood Culture, Received Pending Home Medications Scheduled Ascorbic Acid (Vitamin C) 500 Mg Tablet, 500 MG PO QHS Atorvastatin Calcium (Atorvastatin Calcium) 10 Mg Tablet, 10 MG PO QHS Bisoprolol/Hydrochlorothiazide (Bisoprolol-Hctz 5-6.25 mg Tab) 1 Each Tablet, 1 TAB PO DAILY Calcium Carbonate/Vitamin D3 (Calcium 600-Vit D3 800 Tablet) 1 Each Tablet, 1 TAB PO DAILY Fexofenadine HCl (Jazzy Allergy) 180 Mg Tablet, 180 MG PO DAILY Lisinopril (Lisinopril) 10 Mg Tablet, 10 MG PO DAILY Metformin HCl (Metformin HCl ER) 500 Mg Tab.er.24h, 2,000 MG PO DAILY TAKES AT LUNCH Montelukast Sodium (Montelukast Sodium) 10 Mg Tablet, 10 MG PO QHS Scheduled PRN Ibuprofen (Ibuprofen) 200 Mg Tablet, 800 MG PO Q6H PRN for PAIN Omeprazole (Omeprazole) 20 Mg Capsule.dr, 20 MG PO QHS PRN for HEARTBURN Triamcinolone Acetonide (Nasacort) 10.8 Ml [place], 1 SPRAY NARES DAILY PRN for CONGESTION Allergies Coded Allergies: pineapple (Verified Allergy, Severe, throat swelling, 05/24/20) Watermelon (Verified Allergy, Unknown, LIP SWELLING, 06/03/20) tuberculin,PPD,multi-puncture (Verified Adverse Reaction, Mild, redness at site, 05/24/20) A-FIB/CHADSVASC A-FIB History Current/History of A-Fib/PAF?: No Current PO Anticoag Therapy: No Age/Risk Factor Scoring CHADSVASC: CHADSVASC Response (Comments) Value Age Risk Factor Age < 65 years old 0 Gender Risk Factor Male 0 Hx of CHF No 0 Hx of HTN No 0 Hx of Stroke/TIA/or VTE No 0 Hx of Diabetes Yes 1 Hx of Vascular Disease No 0 Total 1 Treatment Treatment ordered: Other Other anticoagulant ordered: Zenia Tan MD July 14, 2020 10:19
[2020-07-14] MEDS ORDERED: OMEPRAZOLE 20 MG CAP PO PRN (10:25)
[2020-07-14] MEDS ORDERED: GLUCOSE 4GM CHEW TABLET PO PRN (11:10)
[2020-07-14] MEDS ORDERED: DEXTROSE 50% 50 ML SYRINGE IV PRN (11:10)
[2020-07-14] MEDS ORDERED: GLUCAGON INJ 1MG VIAL SC PRN (11:10)
[2020-07-14] MEDS: bisoproloL fumarate 5 MG TAB PO SCH (11:26)
[2020-07-14 11:45] VITALS: BP 138/88
[2020-07-14] MEDS: NS 1,000 ML IV SCH ×3 (11:53→21:05)
[2020-07-14] MEDS: FEXOFENADINE 60 MG TAB PO SCH (12:50)
[2020-07-14] MEDS: HumaLOG INSULIN (NovoLOG) PER UNIT SC SCH ×3 (12:50→20:06)
[2020-07-14] MEDS: HYDROCHLOROthiazide 6.25MG PER 1/4TAB PO SCH (12:50)
[2020-07-14 14:00] VITALS: BP 128/74
[2020-07-14] MEDS: VANCOMYCIN HCL 1,000 MG, VIAL MATE ADAPTER 1 EACH in NS 250 ML IV SCH (17:30)
[2020-07-14] MEDS ORDERED: CEFTAROLINE FOSAMIL 600 MG in D5W MINI-BAG PLUS 50 ML IV SCH (18:00)
[2020-07-14 20:00] VITALS: BP 122/68
[2020-07-14] MEDS: ASCORBIC ACID 500 MG TAB PO SCH (20:05)
[2020-07-14] MEDS: MONTELUKAST 10 MG TAB PO SCH (20:05)
[2020-07-14] MEDS: ATORVASTATIN 10 MG TAB PO SCH (20:05)
[2020-07-14] MEDS: ENOXAPARIN 40MG/0.4ML SYRINGE (J1650 PER 10MG) SC SCH (20:06)
--- NOTE | 2020-07-14 21:14 | CR ---
CONSULTATION DATE: 07/14/2020 REASON FOR CONSULTATION: Right lower extremity redness and pain. HISTORY OF PRESENT ILLNESS: Gabby Waddell is a patient well known to me who was admitted today with worsening redness and pain. She was seen by myself on Wednesday of this week at which time she had no pain and her leg was fully healed without any discomfort. She had been discharged from the wound care center previously. She states over the week was doing well until about Wednesday when she was feeling some discomfort and on Wednesday noticed some worsening redness and pain for which she went to the ER this morning. She had a recent hospital admission due to right lower extremity cellulitis. PAST MEDICAL HISTORY: 1. Diabetes. 2. Hypertension. 3. GERD. 4. Seasonal allergies. PAST SURGICAL HISTORY: 1. 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 2. Sinus surgery. 3. Partial hysterectomy. 4. . 5. Recent leg debridement. FAMILY HISTORY: Hypertension. ALLERGIES: WATERMELON, PINEAPPLE, TUBERCULIN, PPD. REVIEW OF SYSTEMS: She denies nausea, vomiting, fever or chills. Vitals are examined. She has been afebrile. LABORATORY DATA: Labs are reviewed. White blood cell count is 11.3. ESR is 116. Lactic acid is 2.6 and CRP is 35.6. Blood cultures are pending. Lower extremity examination: There is erythema with some blistering essentially circumferential to her right leg to approximately the mid-calf, the previous amputation site without significant wound. There is one tiny area of fluid at the distal callus. ASSESSMENT: This is a 50-year-old female with diabetes, cellulitis. TREATMENT: The patient is on vancomycin. A wound swab culture was taken of the small fluid at the distal amputation site. We will follow. The patient's signs are unusual for cellulitis given the extent of her blistering. If she does not improve on antibiotics, may consider further testing to rule out some autoimmune pathology.
[2020-07-14] MEDS: ACETAMINOPHEN TAB 650MG DOSE (2X325MG) PO PRN (22:27)
[2020-07-15] MEDS: VANCOMYCIN HCL 1,000 MG, VIAL MATE ADAPTER 1 EACH in NS 250 ML IV SCH ×3 (00:45→17:20)
[2020-07-15] MEDS: NS 1,000 ML IV SCH (05:35)
[2020-07-15] MEDS: ACETAMINOPHEN TAB 650MG DOSE (2X325MG) PO PRN ×3 (05:50→22:17)
[2020-07-15 06:00] VITALS: BP 102/70
[2020-07-15 08:24] LABS: HEMATOCRIT 29.6 % (36.0-47.0); MEAN CORPUSCULAR HEMOGLOBIN 29.9 pg (27.0-33.0); MEAN CORPUSCULAR HGB CONC 34.5 g/dl (32.0-36.5); MEAN CORPUSCULAR VOLUME 86.8 fl (80.0-96.0); RED BLOOD COUNT 3.41 10^6/uL (4.00-5.40); WHITE BLOOD COUNT 5.5 10^3/uL (4.0-10.0)
[2020-07-15 08:25] LABS: PLATELET COUNT, AUTOMATED 166 10^3/uL (150-450)
[2020-07-15 08:32] LABS: HEMOGLOBIN 10.2 g/dl (12.0-15.5)
[2020-07-15] MEDS: FEXOFENADINE 60 MG TAB PO SCH (08:36)
[2020-07-15] MEDS: bisoproloL fumarate 5 MG TAB PO SCH (08:36)
[2020-07-15] MEDS: HYDROCHLOROthiazide 6.25MG PER 1/4TAB PO SCH (08:36)
[2020-07-15] MEDS: HumaLOG INSULIN (NovoLOG) PER UNIT SC SCH ×4 (08:37→21:00)
[2020-07-15 08:46] LABS: ALBUMIN 2.6 GM/DL (3.2-5.2); ALT/SGPT 15 U/L (12-78); BILIRUBIN,TOTAL 0.5 MG/DL (0.2-1.0); BLOOD UREA NITROGEN 12 MG/DL (7-18); CALCIUM LEVEL 8.1 MG/DL (8.5-10.1); CARBON DIOXIDE LEVEL 27 MEQ/L (21-32); CHLORIDE LEVEL 110 MEQ/L (98-107); CREATININE FOR GFR 0.45 MG/DL (0.55-1.30); GLOMERULAR FILTRATION RATE > 60.0 (>51); GLUCOSE, FASTING 156 MG/DL (70-100); POTASSIUM SERUM 3.7 MEQ/L (3.5-5.1); SODIUM LEVEL 141 MEQ/L (136-145); TOTAL PROTEIN 5.6 GM/DL (6.4-8.2)
[2020-07-15 09:21] LABS: ERYTHROCYTE SEDIMENTATION RATE 71 mm/hr (0-30)
[2020-07-15 14:00] VITALS: BP 126/86
--- NOTE | 2020-07-15 16:05 | IPNPDOC ---
Date Seen The patient was seen on 07/15/20. Progress Note SUBJECTIVE: Improving WBC, inflammatory markers and redness of RLE. Evaluated by podiatry 07/14/20 in evening, wound cx obtained and pending. Blistering seen on parts of foot ;however, no weeping, perhaps too early. Patient denies numbness, tingling or increased pain in these areas. OBJECTIVE: PHYSICAL EXAMINATION: VS: please see below, stable CONSTITUTIONAL: No acute distress, resting comfortably, AAO x 3 EYES: PERRLA, EOM intact HENT, MOUTH: Normocephalic, atraumatic, moist mucous membranes NECK: SUPPLE, no JVD, no lymphadenopathy, no carotid bruit CV: Regular rate and rhythm, S1S2 normal, no murmurs/rubs/gallops RESPIRATORY: Clear to auscultation bilaterally, no rales/rhonchi/wheezes GI: BS positive in 4 quadrants, soft, nontender, nondistended, no rebound or guarding, no organomegaly : Deferred MUSCULOSKELETAL: Normal ROM. No cyanosis, clubbing, swelling, joint deformity, mild nonpitting RLE edema- see below for skin changes INTEGUMENTARY: Decreased RLE swelling, redness, warmth over right foot, medial and anterior serrano. Scattered areas of cellulitis also seen on lateral side of RLE below knee and right below right knee. what appears like mild areas of "blistering" on anterior foot, no weeping NEUROLOGIC: Cranial Nerves II-XII are intact, no focal deficits PSYCHIATRIC: Mood and affect are normal LABORATORY DATA: Please see below IMAGING: None ASSESSMENT: 50-year-old female with past medical history of right foot, leg and ankle ulceration status post debridement 06/03/2020, diabetes mellitus, HTN, GERD admitted under hospitalist service to be evaluated and treated for right lower extremity cellulitis as inpatient. PLAN: RLE cellulitis with blistering?, recurrent -WBC wnl, LA wnl, VS stable -ESR, CRP improving -Recent debridement/treatment of cellulitis on 06/03/[address] Snider -Previously following with Dr. Masters but was told she did not need to follow any longer (within last 1.5 months) -Wound cx collected from draining area of right foot incision. -No blistering that is weeping, no itching, pain, tingling to indicate shingles/ herpes infection -C/w Vancomycin for now, pain control -F/u podiatry recommendations, daily labs and cultures Hyponatremia likely acute and 2/2 dehydration, recent GI bug- resolved -Na wnl -Stopped IVFs -Daily labs DM type II -BS 265 and likely more increased than normal 2/2 to infection -ISS, FS AC/HS, CC diet, hypoglycemic protocol HTN -Stable -C/w home meds HLD -statin GERD -PPI DVT px -Lovenox DISPOSITION: Admitted as acute inpatient. Podiatry consulted. PT ordered. Discharge home when medically improved. VS, I&O, 24H, Fishbone Vital Signs/I&O Vital Signs Date Time Temp Pulse Resp B/P (MAP) Pulse Ox O2 Delivery O2 Flow Rate FiO2 07/15/20 14:00 97.2 68 18 126/86 (99) 99 Room Air I&O- Last 24 Hours up to 6 AM 07/15/20 06:00 Intake Total 2700 ml Output Total 0 ml Balance 2700 ml Laboratory Data 24H LABS Laboratory Tests 2 07/14/20 16:23: Bedside Glucose (Misc Panel) 202H 07/14/20 19:58: Bedside Glucose (Misc Panel) 223H 07/15/20 07:01: Bedside Glucose (Misc Panel) 165H 07/15/20 08:05: Nucleated Red Blood Cells % (auto) 0.0, Erythrocyte Sedimentation Rate 71H, Anion Gap 4L, Glomerular Filtration Rate > 60.0, Calcium Level 8.1L, Total Bilirubin 0.5, Aspartate Amino Transf (AST/SGOT) 14, Alanine Aminotransferase (ALT/SGPT) 15, Alkaline Phosphatase 42L, C-Reactive Protein, Quantitative 16.60H, Total Protein 5.6L, Albumin 2.6L, Albumin/Globulin Ratio 0.9L, Vancomycin Level Trough 15.2 07/15/20 11:25: Bedside Glucose (Misc Panel) 151H CBC/BMP Laboratory Tests 07/15/20 08:05 Microbiology Microbiology 07/14/20 Gram Stain - Final, Resulted 07/14/20 Wound Culture, Resulted Pending 07/14/20 Blood Culture - Preliminary, Resulted No growth after 24 hours . All specim... 07/14/20 Blood Culture - Preliminary, Resulted No growth after 24 hours . All specim... Zenia Wharton MD July 15, 2020 16:04
--- NOTE | 2020-07-15 19:32 | IPN ---
PROGRESS NOTE DATE: 07/15/2020 SUBJECTIVE: Patient seen and examined. States she feels about the same as yesterday. Denies other complaints. OBJECTIVE: Vitals are reviewed. She has been afebrile. Lower extremity examination erythema and edema maybe mildly improved. LABORATORY DATA: Reviewed. White cell count is 5.5. ESR 71. CRP is 16.6. ASSESSMENT: Diabetic female with cellulitis, possible vasculitis right foot and leg. PLAN: Continue antibiotics. Start compression with Tubigrip. Will follow.
[2020-07-15] MEDS: MONTELUKAST 10 MG TAB PO SCH (21:16)
[2020-07-15] MEDS: ENOXAPARIN 40MG/0.4ML SYRINGE (J1650 PER 10MG) SC SCH (21:17)
[2020-07-15] MEDS: ASCORBIC ACID 500 MG TAB PO SCH (21:17)
[2020-07-15] MEDS: ATORVASTATIN 10 MG TAB PO SCH (21:17)
[2020-07-15 22:00] VITALS: BP 119/75
[2020-07-16] MEDS: VANCOMYCIN HCL 1,000 MG, VIAL MATE ADAPTER 1 EACH in NS 250 ML IV SCH ×3 (01:01→17:55)
[2020-07-16 06:00] VITALS: BP 135/70
[2020-07-16] MEDS: ACETAMINOPHEN TAB 650MG DOSE (2X325MG) PO PRN ×2 (08:02→17:56)
[2020-07-16] MEDS: bisoproloL fumarate 5 MG TAB PO SCH (08:03)
[2020-07-16] MEDS: HYDROCHLOROthiazide 6.25MG PER 1/4TAB PO SCH (08:03)
[2020-07-16] MEDS: FEXOFENADINE 60 MG TAB PO SCH (08:03)
[2020-07-16] MEDS: HumaLOG INSULIN (NovoLOG) PER UNIT SC SCH ×4 (08:04→21:00)
[2020-07-16 08:43] LABS: HEMATOCRIT 29.7 % (36.0-47.0); MEAN CORPUSCULAR HEMOGLOBIN 29.3 pg (27.0-33.0); MEAN CORPUSCULAR HGB CONC 33.7 g/dl (32.0-36.5); MEAN CORPUSCULAR VOLUME 87.1 fl (80.0-96.0); PLATELET COUNT, AUTOMATED 202 10^3/uL (150-450); RED BLOOD COUNT 3.41 10^6/uL (4.00-5.40); WHITE BLOOD COUNT 4.2 10^3/uL (4.0-10.0)
[2020-07-16 09:10] LABS: ALBUMIN 2.9 GM/DL (3.2-5.2); ALT/SGPT 35 U/L (12-78); BILIRUBIN,TOTAL 0.4 MG/DL (0.2-1.0); BLOOD UREA NITROGEN 8 MG/DL (7-18); CALCIUM LEVEL 8.3 MG/DL (8.5-10.1); CARBON DIOXIDE LEVEL 28 MEQ/L (21-32); CHLORIDE LEVEL 109 MEQ/L (98-107); CREATININE FOR GFR 0.46 MG/DL (0.55-1.30); GLOMERULAR FILTRATION RATE > 60.0 (>51); GLUCOSE, FASTING 167 MG/DL (70-100); POTASSIUM SERUM 3.6 MEQ/L (3.5-5.1); SODIUM LEVEL 143 MEQ/L (136-145); TOTAL PROTEIN 6.1 GM/DL (6.4-8.2); VANCOMYCIN LEVEL TROUGH 18.3 UG/ML (10.0-20.0)
[2020-07-16 14:00] VITALS: BP 110/80
--- NOTE | 2020-07-16 14:07 | IPNPDOC ---
Text Note Date of Service The patient was seen on 07/16/20. NOTE SUBJECTIVE: -No acute events -Seen by podiatry and no surgical intervention recommended, to treat for cellulitis with some suspicion of potential vasculitis OBJECTIVE: VS: please see below, stable CONSTITUTIONAL: No acute distress, resting comfortably, AAO x 3 EYES: PERRLA, EOM intact HENT, MOUTH: Normocephalic, atraumatic, moist mucous membranes NECK: SUPPLE, no JVD, no lymphadenopathy, no carotid bruit CV: Regular rate and rhythm, S1S2 normal, no murmurs/rubs/gallops RESPIRATORY: Clear to auscultation bilaterally, no rales/rhonchi/wheezes GI: Normoactive bowel sounds, soft, nontender, nondistended, no rebound or guarding, no organomegaly MUSCULOSKELETAL: Normal ROM. No cyanosis, clubbing, swelling, joint deformity, mild nonpitting RLE edema- see below for skin changes INTEGUMENTARY: Has swelling, redness, warmth over right foot, medial and anterior serrano, with some areas of "blistering" on anterior foot, without any noted weeping NEUROLOGIC: Cranial Nerves II-XII are intact, no focal deficits PSYCHIATRIC: Mood and affect are normal LABORATORY DATA: WBC 4.2 Hgb 10 platelets 202 Na 141 K 3.7 Cr 0.45 Micro: Wound cultures - GAS and staph aureus. sensitivities pending. BCx - NGTD IMAGING: None ASSESSMENT: 50-year-old W with past medical history of right foot, leg and ankle ulceration status post debridement 06/03/2020, diabetes mellitus, HTN, GERD admitted under hospitalist service for right lower extremity cellulitis. PLAN: RLE cellulitis with blistering -WBC wnl, LA wnl, VS stable -ESR, CRP improving -Recent debridement/treatment of cellulitis on 06/03/[address] Snider who has been consulted and recommends treating for cellulitis and to monitor for potential vasculitis, will monitor. -Previously following with Dr. Masters but was told she did not need to follow any longer (within last 1.5 months) -Wound cx collected from draining area of right foot incision, growing staph and strep A -C/w Vancomycin for now, pain control, MRSA swab and follow up wound culture sensitivities to switch likely to keflex if no MRSA Hyponatremia likely acute and 2/2 dehydration - resolved -Na wnl -s/p IVFs -Daily labs DM type II -BS 265 and likely more increased than normal 2/2 to infection -ISS, FS AC/HS, CC diet, hypoglycemic protocol HTN -Stable -C/w home meds HLD -statin GERD -PPI DVT px -Lovenox DISPOSITION: Admitted as acute inpatient. Podiatry consulted. PT ordered. Discharge home when medically improved. VS,Fishbone, I+O VS, Fishbone, I+O Laboratory Tests 07/16/20 08:19 Vital Signs Date Time Temp Pulse Resp B/P (MAP) Pulse Ox O2 Delivery O2 Flow Rate FiO2 07/16/20 08:03 80 135/70 07/16/20 06:00 97.5 20 100 Room Air I&O- Last 24 Hours up to 6 AM 07/16/20 06:00 Intake Total 2780 ml Balance 2780 ml CHILANGO ROSA MD July 16, 2020 09:20
[2020-07-16] MEDS: MONTELUKAST 10 MG TAB PO SCH (21:06)
[2020-07-16] MEDS: ENOXAPARIN 40MG/0.4ML SYRINGE (J1650 PER 10MG) SC SCH (21:06)
[2020-07-16] MEDS: ATORVASTATIN 10 MG TAB PO SCH (21:06)
[2020-07-16] MEDS: ASCORBIC ACID 500 MG TAB PO SCH (21:06)
[2020-07-16 22:00] VITALS: BP 110/74
[2020-07-17] MEDS: VANCOMYCIN HCL 1,000 MG, VIAL MATE ADAPTER 1 EACH in NS 250 ML IV SCH ×3 (01:31→09:00)
[2020-07-17 06:45] VITALS: BP 126/85
[2020-07-17] MEDS: HYDROCHLOROthiazide 6.25MG PER 1/4TAB PO SCH (08:27)
[2020-07-17] MEDS: bisoproloL fumarate 5 MG TAB PO SCH (08:27)
[2020-07-17] MEDS: FEXOFENADINE 60 MG TAB PO SCH (08:28)
[2020-07-17] MEDS: HumaLOG INSULIN (NovoLOG) PER UNIT SC SCH ×4 (08:28→21:00)
[2020-07-17 09:06] LABS: HEMATOCRIT 29.9 % (36.0-47.0); HEMOGLOBIN 10.2 g/dl (12.0-15.5); MEAN CORPUSCULAR HEMOGLOBIN 29.5 pg (27.0-33.0); MEAN CORPUSCULAR HGB CONC 34.1 g/dl (32.0-36.5); MEAN CORPUSCULAR VOLUME 86.4 fl (80.0-96.0); PLATELET COUNT, AUTOMATED 231 10^3/uL (150-450); RED BLOOD COUNT 3.46 10^6/uL (4.00-5.40); WHITE BLOOD COUNT 4.8 10^3/uL (4.0-10.0)
[2020-07-17 09:31] LABS: ALT/SGPT 45 U/L (12-78); BILIRUBIN,TOTAL 0.5 MG/DL (0.2-1.0); BLOOD UREA NITROGEN 8 MG/DL (7-18); CALCIUM LEVEL 8.3 MG/DL (8.5-10.1); CARBON DIOXIDE LEVEL 28 MEQ/L (21-32); CHLORIDE LEVEL 107 MEQ/L (98-107); CREATININE FOR GFR 0.42 MG/DL (0.55-1.30); GLOMERULAR FILTRATION RATE > 60.0 (>51); GLUCOSE, FASTING 160 MG/DL (70-100); POTASSIUM SERUM 3.3 MEQ/L (3.5-5.1); SODIUM LEVEL 142 MEQ/L (136-145); TOTAL PROTEIN 6.3 GM/DL (6.4-8.2)
[2020-07-17 09:35] LABS: VANCOMYCIN LEVEL TROUGH 30.1 UG/ML (10.0-20.0)
[2020-07-17] MEDS: ACETAMINOPHEN TAB 650MG DOSE (2X325MG) PO PRN ×2 (12:43→20:56)
[2020-07-17 14:00] VITALS: BP 134/88
--- NOTE | 2020-07-17 15:04 | IPN ---
PROGRESS NOTE DATE: 07/17/2020 Patient seen and examined. States leg is feeling better. Denies other complaints. Vital signs are reviewed. She has been afebrile. Labs are reviewed. White blood cell count is 4.8. Lower extremity examination: Erythema and edema and blistering are all reduced. ASSESSMENT: A 50-year-old female with cellulitis, possible vasculitis. PLAN: Cultures grew group A streptococcus and methicillin-resistant Staphylococcus aureus (MRSA). These are susceptible to tetracycline, Bactrim, and linezolid. I recommend that patient be switched to an oral agent for 1 day and then can be discharged home on same. She should continue with compression wraps and followup with me early next week.
[2020-07-17] MEDS ORDERED: POTASSIUM CHLORIDE 10 MEQ SR TABLET PO ONE (16:55)
--- NOTE | 2020-07-17 17:08 | IPNPDOC ---
Text Note Date of Service The patient was seen on 07/17/20. NOTE SUBJECTIVE: -No acute events OBJECTIVE: VS: please see below, stable CONSTITUTIONAL: No acute distress, resting comfortably, AAO x 3 EYES: PERRLA, EOM intact HENT, MOUTH: Normocephalic, atraumatic, moist mucous membranes NECK: SUPPLE, no JVD, no lymphadenopathy, no carotid bruit CV: Regular rate and rhythm, S1S2 normal, no murmurs/rubs/gallops RESPIRATORY: Clear to auscultation bilaterally, no rales/rhonchi/wheezes GI: Normoactive bowel sounds, soft, nontender, nondistended, no rebound or guarding, no organomegaly MUSCULOSKELETAL: Normal ROM. No cyanosis, clubbing, swelling, joint deformity, mild nonpitting RLE edema- see below for skin changes INTEGUMENTARY: Improving swelling, redness, warmth over right foot, medial and anterior serrano NEUROLOGIC: Cranial Nerves II-XII are intact, no focal deficits PSYCHIATRIC: Mood and affect are normal LABORATORY DATA: reviewed Micro: Wound cultures - GAS and MRSA BCx - NGTD IMAGING: None ASSESSMENT: 50-year-old W with past medical history of right foot, leg and ankle ulceration status post debridement 06/03/2020, diabetes mellitus, HTN, GERD admitted under hospitalist service for right lower extremity cellulitis. PLAN: RLE cellulitis with blistering and culture positive for group A strep and MRSA -WBC wnl, LA wnl, VS stable -ESR, CRP improving -Recent debridement/treatment of cellulitis on 06/03/[address] Snider who was consulted and recommends treating for cellulitis. -Previously following with Dr. Masters but was told she did not need to follow any longer (within last 1.5 months) -Wound cx collected from draining area of right foot incision, growing MRSA and strep A -D/c Vancomycin and start 2 DS bactrim BID Hyponatremia likely acute and 2/2 dehydration - resolved -Na wnl -s/p IVFs -Daily labs DM type II -BS 265 and likely more increased than normal 2/2 to infection -ISS, FS AC/HS, CC diet, hypoglycemic protocol HTN -Stable -C/w home meds HLD -statin GERD -PPI DVT px -Lovenox DISPOSITION: Admitted as acute inpatient. Podiatry consulted. PT ordered. Discharge home likely tomorrow. VS,Fishbone, I+O VS, Fishbone, I+O Laboratory Tests 07/17/20 08:54 Vital Signs Date Time Temp Pulse Resp B/P (MAP) Pulse Ox O2 Delivery O2 Flow Rate FiO2 07/17/20 14:00 96.9 64 18 134/88 (103) 97 Room Air I&O- Last 24 Hours up to 6 AM 07/17/20 06:00 Intake Total 2160 ml Balance 2160 ml CHILANGO ROSA MD July 17, 2020 17:08
[2020-07-17] MEDS: MONTELUKAST 10 MG TAB PO SCH (20:53)
[2020-07-17] MEDS: ASCORBIC ACID 500 MG TAB PO SCH (20:53)
[2020-07-17] MEDS: BACTRIM 160MG/800MG DS TAB PO SCH (20:53)
[2020-07-17] MEDS: ENOXAPARIN 40MG/0.4ML SYRINGE (J1650 PER 10MG) SC SCH (20:53)
[2020-07-17] MEDS: ATORVASTATIN 10 MG TAB PO SCH (20:53)
[2020-07-17 22:00] VITALS: BP 132/82
[2020-07-18 06:00] VITALS: BP 118/84
[2020-07-18] MEDS ORDERED: BACTDSTA PO (07:41)
[2020-07-18] MEDS: bisoproloL fumarate 5 MG TAB PO SCH (08:12)
[2020-07-18] MEDS: BACTRIM 160MG/800MG DS TAB PO SCH (08:12)
[2020-07-18] MEDS: FEXOFENADINE 60 MG TAB PO SCH (08:12)
--- NOTE | 2020-07-18 08:12 | DS.PDOC ---
Discharge Summary General Date of Admission July 14, 2020 at 10:21 Date of Discharge 07/18/2020 Attending Physician: CHILANGO ROSA MD Discharge Summary PROCEDURES PERFORMED DURING STAY: None ADMITTING DIAGNOSES: Cellulitis & Diabetic Foot Infection. DISCHARGE DIAGNOSES: RLE cellulitis Hypokalemia Hx of Right foot, leg and ankle ulceration s/p debridement 06/03/20 Diabetes mellitus type 2 Hypertension. History of traumatic injury to the right lower extremity, lawnmower accident. GERD Seasonal allergies COMPLICATIONS/CHIEF COMPLAINT: Cellulitis & Diabetic Foot Infection. HISTORY OF PRESENT ILLNESS: 50-year-old W with past medical history of right foot, leg and ankle ulceration status post debridement 06/03/2020, diabetes mellitus, HTN, GERD who presented to [facility] emergency room with the chief complaint of worsening right lower extremity pain, swelling and warmth. The patient reported that her abnormal symptoms began 07/12/2020 with increased nausea, lethargy, headache, abdominal discomfort with several episodes of vomiting. The patient denied any foot pain or increased redness of the right lower extremity during this time. Over the next 2436 hours her abdominal symptoms improved; however on 07/14/2020 she woke up with increased right foot pain. She normally wears compression stockings in her right lower extremity and when she took off her compression stocking she noticed increased redness, warmth, pain with touch, erythema extending up the an terior/medial and posterior portion of her right lower extremity-not extending past the knee. The patient has a complicated history of her right lower extremity including trauma to the right lower extremity secondary to a lawnmower accident when she was a child. She's also had cellulitis and infection in the right lower extremity with the recent debridement of ulceration in the exact area of the symptoms on 06/03/2020 during an hospital admission by Dr. Snider, podiatry. She is a type II diabetic and is compliant with her home medications, recent HbA1c on 05/24/2020 was 7.3. Due to symptoms above the patient came to the ER today to be further assessed. HOSPITAL COURSE: In the emergency room vital signs were stable. WBC elevated at 11.3. Inflammatory markers were high with ESR 116, CRP 35.6, lactic acid 2.6. Other abnormal labs include sodium 131, potassium 3.2, blood sugar 265. The patient was given KCl 40 mEq 1. The patient was noted to have the right lower extremity cellulitis by ER provider, was given 1 dose of IV vancomycin. Due to her complicated history and worsening symptoms of the right lower extremity with a recent hospitalization, the patient was admitted under hospitalist service to be evaluated and treated for right lower extremity cellulitis as inpatient. Wound culture grew MRSA and Group A strep. Dr. Snider was consulted and recommended treatment for cellulitis and follow up with him in the outpatient setting. Her cellulitis and pain improved with vancomycin and she was transitioned to bactrim that she will take for another additional 10d with close PCP and podiatry follow up. DISCHARGE MEDICATIONS: Please see below. ALLERGIES: Please see below. PHYSICAL EXAMINATION ON DISCHARGE: VITAL SIGNS: Please see below. CONSTITUTIONAL: No acute distress, resting comfortably, AAO x 3 EYES: PERRLA, EOM intact HENT, MOUTH: Normocephalic, atraumatic, moist mucous membranes NECK: SUPPLE, no JVD, no lymphadenopathy, no carotid bruit CV: Regular rate and rhythm, S1S2 normal, no murmurs/rubs/gallops RESPIRATORY: Clear to auscultation bilaterally, no rales/rhonchi/wheezes GI: Normoactive bowel sounds, soft, nontender, nondistended, no rebound or guarding, no organomegaly MUSCULOSKELETAL: Normal ROM. No cyanosis, clubbing, swelling, joint deformity, mild nonpitting RLE edema- see below for skin changes INTEGUMENTARY: Continues improvement in swelling, redness, warmth over right foot, medial and anterior serrano NEUROLOGIC: Cranial Nerves II-XII are intact, no focal deficits PSYCHIATRIC: Mood and affect are normal LABORATORY DATA: Please see below. IMAGING: None PROGNOSIS: Good ACTIVITY: As tolerated DIET: consistent carb DISCHARGE PLAN: Home with close PCP and podiatry follow up and 10d of bactrim. DISPOSITION: Home DISCHARGE INSTRUCTIONS: Home with close PCP and podiatry follow up and 10d of bactrim. ITEMS TO FOLLOWUP ON ON OUTPATIENT: PCP - BMP within 7d. Bactrim os appropriate with both good GAS coverage and MRSA coverage but will need renal function monitoring given also on ACEi and metformin at baseline. Podiatry - RLE diabetic wound follow up DISCHARGE CONDITION: Stable TIME SPENT ON DISCHARGE: 45 minutes. Vital Signs/I&Os Vital Signs Date Time Temp Pulse Resp B/P (MAP) Pulse Ox O2 Delivery O2 Flow Rate FiO2 07/18/20 06:00 97.6 68 18 118/84 (95) 100 Room Air I&O- Last 24 Hours up to 6 AM 07/18/20 06:00 Intake Total 2500 ml Balance 2500 ml Laboratory Data Labs 24H Laboratory Tests 2 07/17/20 07:44: Bedside Glucose (Misc Panel) 156H 07/17/20 08:54: Nucleated Red Blood Cells % (auto) 0.0, Anion Gap 7L, Glomerular Filtration Rate > 60.0, Calcium Level 8.3L, Total Bilirubin 0.5, Aspartate Amino Transf (AST/SGOT) 26, Alanine Aminotransferase (ALT/SGPT) 45, Alkaline Phosphatase 79, Total Protein 6.3L, Albumin 3.0L, Albumin/Globulin Ratio 0.9L, Vancomycin Level Trough 30.1*H 07/17/20 11:49: Bedside Glucose (Misc Panel) 176H 07/17/20 16:25: Bedside Glucose (Misc Panel) 180H 07/17/20 16:41: Random Vancomycin Level 11.4 07/17/20 20:07: Bedside Glucose (Misc Panel) 218H 07/18/20 05:37: Bedside Glucose (Misc Panel) 184H CBC/BMP Laboratory Tests 07/17/20 08:54 FSBS Laboratory Tests Test 07/17/20 07:44 07/17/20 11:49 07/17/20 16:25 07/17/20 20:07 Range/Units Bedside Glucose (Misc Panel) 156 176 180 218 70-105 MG/DL Test 07/18/20 05:37 Range/Units Bedside Glucose (Misc Panel) 184 70-105 MG/DL Microbiology Microbiology 07/14/20 Gram Stain - Final, Resulted 07/14/20 Wound Culture - Preliminary, Resulted Streptococcus Pyogenes Grp A Staph.aureus Methicillin Resis 07/14/20 Blood Culture - Preliminary, Resulted No Growth after 72 hours. All specime... 07/14/20 Blood Culture - Preliminary, Resulted No Growth after 72 hours. All specime... Discharge Medications Scheduled Ascorbic Acid (Vitamin C) 500 Mg Tablet, 500 MG PO QHS, (Reported) Atorvastatin Calcium (Atorvastatin Calcium) 10 Mg Tablet, 10 MG PO QHS, (Reported) Bisoprolol/Hydrochlorothiazide (Bisoprolol-Hctz 5-6.25 mg Tab) 1 Each Tablet, 1 TAB PO DAILY, (Reported) Calcium Carbonate/Vitamin D3 (Calcium 600-Vit D3 800 Tablet) 1 Each Tablet, 1 TAB PO DAILY, (Reported) Fexofenadine HCl (Jazzy Allergy) 180 Mg Tablet, 180 MG PO DAILY, (Reported) Lisinopril (Lisinopril) 10 Mg Tablet, 10 MG PO DAILY, (Reported) Metformin HCl (Metformin HCl ER) 500 Mg Tab.er.24h, 2,000 MG PO DAILY, (Reported) TAKES AT LUNCH Montelukast Sodium (Montelukast Sodium) 10 Mg Tablet, 10 MG PO QHS, (Reported) Sulfamethoxazole/Trimethoprim (Sulfamethoxazole-Tmp Ds Tablet) 1 Each Tablet, 2 TAB PO BID Scheduled PRN Ibuprofen (Ibuprofen) 200 Mg Tablet, 800 MG PO Q6H PRN for PAIN, (Reported) Omeprazole (Omeprazole) 20 Mg Capsule.dr, 20 MG PO QHS PRN for HEARTBURN, (Reported) Triamcinolone Acetonide (Nasacort) 10.8 Ml Lolita, 1 SPRAY NARES DAILY PRN for CONGESTION, (Reported) Allergies Coded Allergies: pineapple (Verified Allergy, Severe, throat swelling, 05/24/20) Watermelon (Verified Allergy, Unknown, LIP SWELLING, 06/03/20) tuberculin,PPD,multi-puncture (Verified Adverse Reaction, Mild, redness at site, 05/24/20) CHILANGO ROSA MD July 18, 2020 08:12
[2020-07-18 08:13] VITALS: BP 118/84
[2020-07-18] MEDS: HYDROCHLOROthiazide 6.25MG PER 1/4TAB PO SCH (08:13)
[2020-07-18] MEDS: HumaLOG INSULIN (NovoLOG) PER UNIT SC SCH (08:13)
[2020-07-18 08:38] LABS: HEMATOCRIT 31.5 % (36.0-47.0); HEMOGLOBIN 10.4 g/dl (12.0-15.5); MEAN CORPUSCULAR VOLUME 87.7 fl (80.0-96.0); PLATELET COUNT, AUTOMATED 258 10^3/uL (150-450); RED BLOOD COUNT 3.59 10^6/uL (4.00-5.40); WHITE BLOOD COUNT 5.9 10^3/uL (4.0-10.0)
[2020-07-18 08:54] LABS: BLOOD UREA NITROGEN 9 MG/DL (7-18); CALCIUM LEVEL 8.7 MG/DL (8.5-10.1); CARBON DIOXIDE LEVEL 31 MEQ/L (21-32); CHLORIDE LEVEL 107 MEQ/L (98-107); CREATININE FOR GFR 0.52 MG/DL (0.55-1.30); GLOMERULAR FILTRATION RATE > 60.0 (>51); GLUCOSE, FASTING 189 MG/DL (70-100); POTASSIUM SERUM 3.7 MEQ/L (3.5-5.1); SODIUM LEVEL 141 MEQ/L (136-145)
== END 2020-07-18 11:32 | disposition home or self-care (01) | DRG 383 ==
LOC: M ED 08:01 → M ED INP 10:21 → EEVIPCON 10:21 → ENRESERV 10:59 → M MS5PR 11:40
PROVIDERS: ADMIT Internal Medicine; ATTEND Internal Medicine
DX: L03.115 Cellulitis of right lower limb (principal); E87.1 Hypo-osmolality and hyponatremia; I10 Essential (primary) hypertension; E11.9 Type 2 diabetes mellitus without complications; E87.6 Hypokalemia; K21.9 Gastro-esophageal reflux disease without esophagitis; Z79.899 Other long term (current) drug therapy; Z91.018 Allergy to other foods; Z88.7 Allergy status to serum and vaccine; Z89.421 Acquired absence of other right toe(s)

== ENCOUNTER → 2020-07-25 | Outpatient (REF) | payer BC ==
[~2020-07-25] MED LIST changes: +BACTDSTA PO
[2020-07-25 13:35] LABS: BASO # 0.1 10^3/uL (0.0-0.2); BASO % 1.1 % (0.0-1.0); EOS # 0.2 10^3/uL (0.0-0.5); EOS % 1.8 % (0.0-3.0); HEMATOCRIT 36.5 % (36.0-47.0); HEMOGLOBIN 11.9 g/dl (12.0-15.5); LYMPH # 2.2 10^3/uL (1.5-5.0); LYMPH % 27.3 % (24.0-44.0); MEAN CORPUSCULAR HEMOGLOBIN 29.1 pg (27.0-33.0); MEAN CORPUSCULAR HGB CONC 32.6 g/dl (32.0-36.5); MEAN CORPUSCULAR VOLUME 89.2 fl (80.0-96.0); MONO # 0.7 10^3/uL (0.0-0.8); MONO % 8.7 % (2.0-8.0); NEUTROPHILS # 4.9 10^3/uL (1.5-8.5); NEUTROPHILS % 60.6 % (36.0-66.0); PLATELET COUNT, AUTOMATED 478 10^3/uL (150-450); RED BLOOD COUNT 4.09 10^6/uL (4.00-5.40); WHITE BLOOD COUNT 8.1 10^3/uL (4.0-10.0)
[2020-07-25 14:01] LABS: ALBUMIN 4.3 GM/DL (3.2-5.2); ALT/SGPT 20 U/L (12-78); BILIRUBIN,TOTAL 0.3 MG/DL (0.2-1.0); BLOOD UREA NITROGEN 12 MG/DL (7-18); CALCIUM LEVEL 9.6 MG/DL (8.5-10.1); CARBON DIOXIDE LEVEL 25 MEQ/L (21-32); CHLORIDE LEVEL 99 MEQ/L (98-107); CREATININE FOR GFR 0.96 MG/DL (0.55-1.30); GLOMERULAR FILTRATION RATE > 60.0 (>51); GLUCOSE, FASTING 175 MG/DL (70-100); POTASSIUM SERUM 4.3 MEQ/L (3.5-5.1); SODIUM LEVEL 133 MEQ/L (136-145); TOTAL PROTEIN 7.8 GM/DL (6.4-8.2)
[2020-07-25 14:45] LABS: HEMOGLOBIN A1c 7.1 %
== END ==
LOC: M SFHCPLAZ 11:06
PROVIDERS: ATTEND Physician Assistant
DX: L03.115 Cellulitis of right lower limb (principal); E11.9 Type 2 diabetes mellitus without complications

== ENCOUNTER → 2020-11-14 | Outpatient (REF) | LOC: M LABSMTC 09:35 | PROVIDERS: ATTEND Pediatrics | DX: Z11.52 Encounter for screening for COVID-19 (principal) ==

== ENCOUNTER → 2021-02-11 | Outpatient (REF) | LOC: M EMP 15:41 | PROVIDERS: ATTEND Family Medicine | DX: Z11.52 Encounter for screening for COVID-19 (principal) ==

== ENCOUNTER → 2021-02-14 | Outpatient (REF) ==
[~2021-02-14] MED LIST changes: +BISO1TAB18 PO; -BISO5TAB2 PO; -MONT10TA10 PO; +MONT10TA97 PO; +OMEP-173 PO; -OMEP-218 PO
== END ==
LOC: M EMP 10:39
PROVIDERS: ATTEND Family Medicine
DX: Z11.52 Encounter for screening for COVID-19 (principal); Z20.822 Contact with and (suspected) exposure to COVID-19

== ENCOUNTER → 2021-04-24 | Outpatient (CLI) | payer BC ==
[2021-04-24 08:22] LABS: HEMATOCRIT 39.6 % (36.0-47.0); MEAN CORPUSCULAR HGB CONC 35.4 g/dl (32.0-36.5); PLATELET COUNT, AUTOMATED 272 10^3/uL (150-450); RED BLOOD COUNT 4.66 10^6/uL (4.00-5.40); WHITE BLOOD COUNT 6.8 10^3/uL (4.0-10.0)
[2021-04-24 08:39] LABS: HEMOGLOBIN A1c 7.6 %
[2021-04-24 08:55] LABS: ALBUMIN 4.2 GM/DL (3.2-5.2); ALT/SGPT 35 U/L (12-78); BILIRUBIN,TOTAL 0.4 MG/DL (0.2-1.0); BLOOD UREA NITROGEN 14 MG/DL (7-18); CALCIUM LEVEL 9.5 MG/DL (8.5-10.1); CARBON DIOXIDE LEVEL 24 MEQ/L (21-32); CHLORIDE LEVEL 105 MEQ/L (98-107); CHOLESTEROL LEVEL 182 MG/DL (<200); CHOLESTEROL RISK RATIO 4.136 (<5); CREATININE FOR GFR 0.63 MG/DL (0.55-1.30); GLOMERULAR FILTRATION RATE > 60.0 (>51); GLUCOSE, FASTING 167 MG/DL (70-100); HDL CHOLESTEROL 44 MG/DL (>40); LDL CHOLESTEROL 111 MG/DL (<100); NON-HDL-C 138 MG/DL; POTASSIUM SERUM 4.1 MEQ/L (3.5-5.1); SODIUM LEVEL 140 MEQ/L (136-145); TOTAL PROTEIN 7.6 GM/DL (6.4-8.2); TRIGLYCERIDES LEVEL 136 MG/DL (<150)
== END ==
LOC: M LAB 07:20
PROVIDERS: ATTEND Physician Assistant Medical
DX: K21.9 Gastro-esophageal reflux disease without esophagitis (principal)

== ENCOUNTER → 2021-11-21 | Outpatient (CLI) | payer BC | LOC: M WHC 08:49 | PROVIDERS: ATTEND Physician Assistant Medical | DX: Z12.31 Encounter for screening mammogram for malignant neoplasm of breast (principal) ==

== ENCOUNTER → 2021-12-05 | Outpatient (CLI) | payer BC | LOC: M PLAIMG 15:17 | PROVIDERS: ATTEND Physician Assistant Medical | DX: M25.512 Pain in left shoulder (principal) ==

== ENCOUNTER 2021-12-24 14:53 | Outpatient (RCR) | payer BC | END 2022-01-05 23:59 | disposition home or self-care (01) | LOC: M PT 14:53 | PROVIDERS: ATTEND Physician Assistant Medical | DX: M25.512 Pain in left shoulder (principal) ==

== ENCOUNTER 2022-02-03 10:30 | Outpatient (RCR) | payer BC | END 2022-02-04 | LOC: M PT 10:30 | PROVIDERS: ATTEND Physician Assistant Medical | DX: M25.512 Pain in left shoulder (principal) ==

== ENCOUNTER → 2022-06-17 | Outpatient (CLI) | payer BC | LOC: M PLAIMG 15:42 | PROVIDERS: ATTEND Physician Assistant Medical | DX: S39.012A Strain of muscle, fascia and tendon of lower back, initial encounter (principal); W18.30XA Fall on same level, unspecified, initial encounter; Y92.009 Unspecified place in unspecified non-institutional (private) residence as the place of occurrence of the external cause ==

== ENCOUNTER → 2022-06-17 | Outpatient (CLI) | payer BC ==
[2022-06-17 08:31] LABS: BASO # 0.1 10^3/uL (0.0-0.2); BASO % 1.1 % (0.0-1.0); EOS # 0.3 10^3/uL (0.0-0.5); EOS % 4.6 % (0.0-3.0); HEMATOCRIT 38.7 % (36.0-47.0); HEMOGLOBIN 13.7 g/dl (12.0-15.5); LYMPH # 2.8 10^3/uL (1.5-5.0); LYMPH % 40.6 % (24.0-44.0); MEAN CORPUSCULAR HEMOGLOBIN 30.4 pg (27.0-33.0); MEAN CORPUSCULAR HGB CONC 35.4 g/dl (32.0-36.5); MONO # 0.6 10^3/uL (0.0-0.8); MONO % 8.2 % (2.0-8.0); NEUTROPHILS # 3.2 10^3/uL (1.5-8.5); NEUTROPHILS % 45.4 % (36.0-66.0); PLATELET COUNT, AUTOMATED 266 10^3/uL (150-450)
[2022-06-17 08:59] LABS: ALBUMIN 4.1 G/DL (3.2-5.2); ALKALINE PHOSPHATASE 61 U/L (46-116); ALT/SGPT 36 U/L (7.0-40); AST/SGOT 18 U/L (<34); BILIRUBIN,TOTAL 0.5 MG/DL (0.3-1.2); BLOOD UREA NITROGEN 11 MG/DL (9-23); CALCIUM LEVEL 9.3 MG/DL (8.5-10.1); CARBON DIOXIDE LEVEL 30 MMOL/L (20-31); CHLORIDE LEVEL 101 MMOL/L (98-107); CHOLESTEROL LEVEL 159 MG/DL (<200); CHOLESTEROL RISK RATIO 3.58 (<5); CREATININE FOR GFR 0.49 MG/DL (0.55-1.30); GLOMERULAR FILTRATION RATE > 60.0 (>51); GLUCOSE, FASTING 198 MG/DL (60-100); HDL CHOLESTEROL 44.3 MG/DL (>40); LDL CHOLESTEROL 87.9 MG/DL (<100); NON-HDL-C 114.7 MG/DL; POTASSIUM SERUM 4.2 MMOL/L (3.5-5.1); SODIUM LEVEL 139 MMOL/L (136-145); TOTAL PROTEIN 6.8 G/DL (5.7-8.2); TRIGLYCERIDES LEVEL 134 MG/DL (<150)
[2022-06-17 09:02] LABS: HEMOGLOBIN A1c 7.9 % (4.0-6.0)
== END ==
LOC: M LAB 06:57
PROVIDERS: ATTEND Physician Assistant Medical
DX: E11.9 Type 2 diabetes mellitus without complications (principal)

== ENCOUNTER → 2022-11-19 | Outpatient (CLI) | payer BC | LOC: M RAD 07:16 | PROVIDERS: ATTEND Physician Assistant Medical | DX: K76.0 Fatty (change of) liver, not elsewhere classified (principal) ==

== ENCOUNTER → 2022-11-27 | Outpatient (CLI) | payer BC | LOC: M WHC 08:55 | PROVIDERS: ATTEND Physician Assistant Medical | DX: Z12.31 Encounter for screening mammogram for malignant neoplasm of breast (principal) ==

== ENCOUNTER → 2022-12-13 | Outpatient (CLI) | payer BC | LOC: M RAD 10:03 | PROVIDERS: ATTEND Physician Assistant | DX: S93.402A Sprain of unspecified ligament of left ankle, initial encounter (principal); S93.692A Other sprain of left foot, initial encounter; W18.30XA Fall on same level, unspecified, initial encounter; Y92.009 Unspecified place in unspecified non-institutional (private) residence as the place of occurrence of the external cause ==

== ENCOUNTER → 2023-04-15 | Outpatient (CLI) | payer BC | LOC: M PLARAD 13:41 | PROVIDERS: ATTEND Physician Assistant | DX: S92.155D Nondisplaced avulsion fracture (chip fracture) of left talus, subsequent encounter for fracture with routine healing (principal); Y93.9 Activity, unspecified; Y92.9 Unspecified place or not applicable ==

== ENCOUNTER → 2023-04-20 | Outpatient (CLI) | payer BC ==
[2023-04-20 08:35] LABS: BASO # 0.1 10^3/uL (0.0-0.2); BASO % 0.8 % (0.0-1.0); EOS # 0.3 10^3/uL (0.0-0.5); EOS % 4.6 % (0.0-3.0); HEMATOCRIT 40.1 % (36.0-47.0); HEMOGLOBIN 14.3 g/dl (12.0-15.5); LYMPH # 2.6 10^3/uL (1.5-5.0); LYMPH % 34.9 % (24.0-44.0); MEAN CORPUSCULAR HEMOGLOBIN 30.2 pg (27.0-33.0); MEAN CORPUSCULAR HGB CONC 35.7 g/dl (32.0-36.5); MEAN CORPUSCULAR VOLUME 84.6 fl (80.0-96.0); MONO # 0.6 10^3/uL (0.0-0.8); MONO % 8.2 % (2.0-8.0); NEUTROPHILS # 3.8 10^3/uL (1.5-8.5); NEUTROPHILS % 51.4 % (36.0-66.0); PLATELET COUNT, AUTOMATED 262 10^3/uL (150-450); RED BLOOD COUNT 4.74 10^6/uL (4.00-5.40); WHITE BLOOD COUNT 7.3 10^3/uL (4.0-10.0)
[2023-04-20 09:07] LABS: INR 0.88; PROTHROMBIN TIME 11.7 SECONDS (12.5-14.5)
[2023-04-20 09:08] LABS: CPK CREATINE PHOSPHOKINASE 62 U/L (34-145); PARTIAL THROMBOPLASTIN TIME 23.9 SECONDS (24.8-34.2)
[2023-04-20 09:09] LABS: ALBUMIN 4.2 G/DL (3.2-5.2); ALKALINE PHOSPHATASE 68 U/L (46-116); ALT/SGPT 29 U/L (7.0-40); AST/SGOT 13 U/L (<34); BILIRUBIN,TOTAL 0.6 MG/DL (0.3-1.2); BLOOD UREA NITROGEN 13 MG/DL (9-23); CALCIUM LEVEL 9.1 MG/DL (8.5-10.1); CARBON DIOXIDE LEVEL 26 MMOL/L (20-31); CHLORIDE LEVEL 103 MMOL/L (98-107); CHOLESTEROL LEVEL 180 MG/DL (<200); CHOLESTEROL RISK RATIO 3.86 (<5); CREATININE FOR GFR 0.47 MG/DL (0.55-1.30); GLOMERULAR FILTRATION RATE > 60.0 (>51); GLUCOSE, FASTING 219 MG/DL (60-100); HDL CHOLESTEROL 46.6 MG/DL (>40); LDL CHOLESTEROL 102.2 MG/DL (<100); NON-HDL-C 133.4 MG/DL; POTASSIUM SERUM 3.8 MMOL/L (3.5-5.1); SODIUM LEVEL 136 MMOL/L (136-145); TOTAL PROTEIN 7.3 G/DL (5.7-8.2); TRIGLYCERIDES LEVEL 156 MG/DL (<150)
[2023-04-20 09:11] LABS: HEPATITIS B SURFACE ANTIBODY NEGATIVE (POSITIVE)
[2023-04-20 09:43] LABS: HEMOGLOBIN A1c 8.7 % (4.0-6.0); HEPATITIS C VIRUS ABY INDEX < 0.02 INDEX (<0.8)
[2023-04-20 09:49] LABS: CREATININE, URINE 18.4 MG/DL; MALB URINE SIEMENS < 3.0 MG/L; MAU/CREAT RATIO 16.3 MCG/MG (0.0-30.0)
== END ==
LOC: M LAB 06:57
PROVIDERS: ATTEND Physician Assistant Medical
DX: K76.0 Fatty (change of) liver, not elsewhere classified (principal); E78.00 Pure hypercholesterolemia, unspecified

== ENCOUNTER → 2023-11-29 | Outpatient (CLI) | payer BC ==
[2023-11-29 16:17] LABS: HEMOGLOBIN A1c 5.6 % (4.0-6.0)
== END ==
LOC: M LAB 15:38
PROVIDERS: ATTEND Physician Assistant Medical
DX: E11.9 Type 2 diabetes mellitus without complications (principal)

== ENCOUNTER → 2023-12-23 | Outpatient (CLI) | payer BC | LOC: M WHC 15:40 | PROVIDERS: ATTEND Physician Assistant Medical | DX: Z12.31 Encounter for screening mammogram for malignant neoplasm of breast (principal) ==

== ENCOUNTER → 2024-07-05 | Outpatient (CLI) | payer BC ==
[2024-07-05 07:34] LABS: BASO # 0.1 10^3/uL (0.0-0.2); BASO % 1.3 % (0.0-1.0); EOS # 0.3 10^3/uL (0.0-0.5); EOS % 5.2 % (0.0-3.0); HEMATOCRIT 39.9 % (36.0-47.0); HEMOGLOBIN 13.7 g/dl (12.0-15.5); LYMPH # 2.6 10^3/uL (1.5-5.0); LYMPH % 40.8 % (24.0-44.0); MEAN CORPUSCULAR HGB CONC 34.3 g/dl (32.0-36.5); MEAN CORPUSCULAR VOLUME 87.5 fl (80.0-96.0); MONO # 0.5 10^3/uL (0.0-0.8); MONO % 7.8 % (2.0-8.0); NEUTROPHILS # 2.9 10^3/uL (1.5-8.5); NEUTROPHILS % 44.7 % (36.0-66.0); PLATELET COUNT, AUTOMATED 248 10^3/uL (150-450); RED BLOOD COUNT 4.56 10^6/uL (4.00-5.40); WHITE BLOOD COUNT 6.4 10^3/uL (4.0-10.0)
[2024-07-05 07:48] LABS: HEMOGLOBIN A1c 5.9 % (4.0-6.0)
[2024-07-05 07:56] LABS: ALKALINE PHOSPHATASE 61 U/L (35-104); ALT/SGPT 22 U/L (7.0-40); AST/SGOT 14 U/L (<34); BILIRUBIN,TOTAL 0.6 MG/DL (0.3-1.2); BLOOD UREA NITROGEN 11 MG/DL (9-23); CALCIUM LEVEL 9.1 MG/DL (8.5-10.1); CARBON DIOXIDE LEVEL 29 MMOL/L (20-31); CHLORIDE LEVEL 102 MMOL/L (98-107); CHOLESTEROL LEVEL 179 MG/DL (<200); CHOLESTEROL RISK RATIO 3.49 (<5); CREATININE FOR GFR 0.53 MG/DL (0.55-1.30); GLOMERULAR FILTRATION RATE > 90.0 (>51); GLUCOSE, FASTING 130 MG/DL (60-100); HDL CHOLESTEROL 51.2 MG/DL (>40); LDL CHOLESTEROL 107.2 MG/DL (<100); NON-HDL-C 127.8 MG/DL; SODIUM LEVEL 140 MMOL/L (136-145); TRIGLYCERIDES LEVEL 103 MG/DL (<150)
[2024-07-06 17:35] LABS: ERYTHROCYTE SEDIMENTATION RATE 8 mm/hr (0-30)
== END ==
LOC: M LAB 06:48
PROVIDERS: ATTEND Physician Assistant Medical
DX: K21.9 Gastro-esophageal reflux disease without esophagitis (principal)

== ENCOUNTER → 2024-07-06 | Outpatient (CLI) | payer BC ==
[2024-07-06 17:59] LABS: C REACTIVE PROTEIN QUANTITATIV < 0.50 MG/DL (<1.0); RHEUMATOID FACTOR QUANT 8.9 IU/ML (<14)
== END ==
LOC: M PLALAB 16:08
PROVIDERS: ATTEND Physician Assistant Medical
DX: M65.90 Unspecified synovitis and tenosynovitis, unspecified site (principal)